=== PATIENT | male | born 1950 | race Caucasian/White ===

== ENCOUNTER 2024-02-22 14:46 | Inpatient (IN) | payer OTHER ==
[2024-02-22] MEDS: ALBUTEROL SO4 2.5/IPRATROPIUM 0.5 INH SOL 3 ML VIAL.NEB. NEB ONE (15:15)
[2024-02-22 15:54] LABS: BASO % 0.3 % (0-2.0); EOS % 1.2 % (0-4.5); HEMATOCRIT 46.8 % (35.4-49); HEMOGLOBIN 15.4 GM/dL (11.7-16.9); LYMPH % 9.8 % (8-40); MCH 28.1 pg (25.7-33.7); MEAN CELL VOLUME 85.1 fl (80-96); MEAN PLT VOLUME 7.6 fl (7.5-11.1); MONO % 11.2 % (3.8-10.2); NEUT % 77.5 % (42.8-82.8); PLATELET COUNT 299 10^3/uL (134-434); RBC 5.49 M/mm3 (4.00-5.60); RDW 15.3 % (11.9-15.9); WHITE BLOOD COUNT 14.9 K/mm3 (4.0-10.0)
[2024-02-22 15:56] LABS: VENOUS BASE EXCESS -2.1 mmol/L (-2-2); VENOUS O2 SATURATION 97.5 % (70-80); VENOUS PCO2 32.1 mmHg (38-52); VENOUS PH 7.433 (7.310-7.410)
[2024-02-22 16:07] LABS: INR 1.18 (0.83-1.09); PROTHROMBIN TIME (PATIENT) 13.5 SEC (9.7-13.0)
[2024-02-22 16:18] LABS: CHLORIDE 103 mmol/L (98-107); POTASSIUM 4.1 mmol/L (3.5-5.1); SODIUM 136 mmol/L (136-145)
[2024-02-22 16:21] LABS: CALCIUM 8.9 mg/dL (8.5-10.1); GLUCOSE,RANDOM 109 mg/dL (74-106)
[2024-02-22 16:22] LABS: ALBUMIN 3.2 g/dl (3.4-5.0); ANION GAP 8 mmol/L (4-13); BLOOD UREA NITROGEN 39.2 mg/dL (7-18); CO2 25 mmol/L (21-32)
[2024-02-22 16:23] LABS: MAGNESIUM 2.4 mg/dL (1.8-2.4)
[2024-02-22 16:24] LABS: CREATININE 1.7 mg/dL (0.55-1.3); SGOT/AST 37 U/L (15-37); SGPT/ALT 40 U/L (13-61)
[2024-02-22 16:25] LABS: BILIRUBIN,TOTAL 0.7 mg/dL (0.2-1); TOT PROT 6.6 g/dl (6.4-8.2)
[2024-02-22 16:26] LABS: ALK PHOS 71 U/L (45-117); PHOSPHOROUS 3.5 mg/dL (2.5-4.9)
[2024-02-22 16:31] LABS: N-TERMINAL BNP 150.4 pg/ml (5-125)
[2024-02-22 18:06] LABS: VENOUS BASE EXCESS -1.8 mmol/L (-2-2); VENOUS PCO2 38.2 mmHg (38-52); VENOUS PH 7.392 (7.310-7.410)
[2024-02-22 19:17] LABS: EPI CELLS 35 /uL (0-25.1); HYALINE CASTS 3 /uL (0-3.1); PH,URINE 5.5 (5.0-8.0); URINE APPEARANCE CLEAR; URINE BACTERIA 29 /uL (0-1359); URINE BILIRUBIN 1+ (NEGATIVE); URINE COLOR DK YELLOW; URINE GLUCOSE (UA) NEGATIVE (NEGATIVE); URINE KETONE TRACE (NEGATIVE); URINE LEUK ESTERASE TRACE (NEGATIVE); URINE NITRITE NEGATIVE (NEGATIVE); URINE PROTEIN 2+ (NEGATIVE); URINE RBC 1805 /uL (0-23.9); URINE WBC 42 /uL (0-25.8)
[2024-02-23 08:30] LABS: HEMATOCRIT 46.4 % (35.4-49); HEMOGLOBIN 15.6 GM/dL (11.7-16.9); MCH 28.6 pg (25.7-33.7); MCHC 33.5 g/dl (32.0-35.9); MEAN CELL VOLUME 85.3 fl (80-96); MEAN PLT VOLUME 7.9 fl (7.5-11.1); PLATELET COUNT 270 10^3/uL (134-434); RBC 5.45 M/mm3 (4.00-5.60); WHITE BLOOD COUNT 13.6 K/mm3 (4.0-10.0)
[2024-02-23 08:45] LABS: POTASSIUM 3.8 mmol/L (3.5-5.1)
[2024-02-23 08:55] LABS: CALCIUM 9.5 mg/dL (8.5-10.1)
[2024-02-23 08:56] LABS: ALBUMIN 3.3 g/dl (3.4-5.0); BLOOD UREA NITROGEN 46.9 mg/dL (7-18)
[2024-02-23 08:58] LABS: BILIRUBIN,TOTAL 0.8 mg/dL (0.2-1); CREATININE 1.5 mg/dL (0.55-1.3); TOT PROT 6.6 g/dl (6.4-8.2)
[2024-02-23 09:21] LABS: ERYTHROCYTE SEDIMENTATION RATE 15 mm/hr (0-20)
[2024-02-23] MEDS: ENOXAPARIN NA (PORCINE) 40 MG/0.4 ML DISP.SYRIN SQ SCH (09:42)
[2024-02-23] MEDS: TAMSULOSIN HCL 0.4 MG CAP PO SCH (09:42)
[2024-02-23] MEDS: buPROPion HCL 100 MG TABLET PO SCH (11:58)
[2024-02-23 13:37] LABS: COCAINE, UR NEGATIVE (NEGATIVE); PHENCYCLIDINE,URINE NEGATIVE (NEGATIVE); URINE AMPHETAMINES NEGATIVE (NEGATIVE); URINE BARBITURATES NEGATIVE (NEGATIVE); URINE BENZODIAZEPINES NEGATIVE (NEGATIVE)
[2024-02-23 13:43] LABS: METHADONE, UR NEGATIVE (NEGATIVE); OPIATES, URI NEGATIVE (NEGATIVE)
[2024-02-23] MEDS: SODIUM CHLORIDE 1,000 ML IV SCH (15:09)
[2024-02-23] MEDS: ATORVASTATIN CA 20 MG TABLET (FP) PO SCH (21:45)
[2024-02-23] MEDS: buPROPion HCL 75 MG TABLET PO SCH (21:45)
[2024-02-24] MEDS: ASPIRIN COATED 81 MG TABLET.EC PO SCH (16:36)
[2024-02-24] MEDS: HALOPERIDOL LACTATE 5 MG/ML IM ONE (16:37)
[2024-02-24 16:40] LABS: ARTERIAL BLD GAS O2 SATURATION 97.1 % (95-98); ARTERIAL BLOOD GAS BASE EXCESS -3.1 mmol/L (-2-2); ARTERIAL BLOOD GAS PO2 91.5 mmHg (80-100); ARTERIAL BLOOD GAS pH 7.407 (7.350-7.450)
[2024-02-24 16:41] LABS: ALLENS TEST POSITIVE
[2024-02-25 09:42] LABS: BASO % 0.7 % (0-2.0); EOS % 6.6 % (0-4.5); HEMATOCRIT 44.5 % (35.4-49); HEMOGLOBIN 14.6 GM/dL (11.7-16.9); LYMPH % 17.1 % (8-40); MCH 28.5 pg (25.7-33.7); MCHC 32.8 g/dl (32.0-35.9); MEAN CELL VOLUME 86.9 fl (80-96); MEAN PLT VOLUME 7.3 fl (7.5-11.1); MONO % 8.7 % (3.8-10.2); NEUT % 66.9 % (42.8-82.8); PLATELET COUNT 248 10^3/uL (134-434); RBC 5.12 M/mm3 (4.00-5.60); RDW 14.7 % (11.9-15.9); WHITE BLOOD COUNT 8.6 K/mm3 (4.0-10.0)
[2024-02-25 10:33] LABS: BLOOD UREA NITROGEN 30.4 mg/dL (7-18); CALCIUM 8.7 mg/dL (8.5-10.1)
[2024-02-26 09:54] LABS: BASO % 0.6 % (0-2.0); EOS % 7.1 % (0-4.5); HEMATOCRIT 44.1 % (35.4-49); HEMOGLOBIN 14.8 GM/dL (11.7-16.9); LYMPH % 19.5 % (8-40); MCH 28.9 pg (25.7-33.7); MCHC 33.6 g/dl (32.0-35.9); MEAN CELL VOLUME 86.1 fl (80-96); MEAN PLT VOLUME 7.4 fl (7.5-11.1); MONO % 8.6 % (3.8-10.2); NEUT % 64.2 % (42.8-82.8); PLATELET COUNT 251 10^3/uL (134-434); RBC 5.12 M/mm3 (4.00-5.60); RDW 14.7 % (11.9-15.9); WHITE BLOOD COUNT 8.6 K/mm3 (4.0-10.0)
[2024-02-26 10:02] LABS: POTASSIUM 4.1 mmol/L (3.5-5.1)
[2024-02-26 10:12] LABS: BLOOD UREA NITROGEN 26.3 mg/dL (7-18); CALCIUM 8.8 mg/dL (8.5-10.1); MAGNESIUM 2.2 mg/dL (1.8-2.4)
[2024-02-26 10:15] LABS: PHOSPHOROUS 2.3 mg/dL (2.5-4.9)
[2024-02-26 10:16] LABS: CREATININE 1.2 mg/dL (0.55-1.3)
[2024-02-26 10:17] LABS: BILIRUBIN,TOTAL 0.8 mg/dL (0.2-1); TOT PROT 6.1 g/dl (6.4-8.2)
[2024-02-26] MEDS: LACTATED RINGERS SOLUTION 1,000 ML/1,000 ML INFUS.BAG IV SCH (11:59)
[2024-02-26] MEDS: buPROPion HCL 75 MG TABLET PO SCH (14:32)
[2024-02-27] MEDS ORDERED: buPROPion HCL 75 MG TABLET PO SCH ×2 (10:00)
[2024-02-27] MEDS: LISINOPRIL 20 MG TABLET PO SCH (11:25)
[2024-02-27 12:44] LABS: HEMATOCRIT 47.6 % (35.4-49); HEMOGLOBIN 15.8 GM/dL (11.7-16.9); MCH 28.9 pg (25.7-33.7); MCHC 33.1 g/dl (32.0-35.9); MEAN CELL VOLUME 87.2 fl (80-96); MEAN PLT VOLUME 7.8 fl (7.5-11.1); PLATELET COUNT 238 10^3/uL (134-434); RBC 5.46 M/mm3 (4.00-5.60); RDW 15.1 % (11.9-15.9); WHITE BLOOD COUNT 10.2 K/mm3 (4.0-10.0)
[2024-02-27 13:59] LABS: POTASSIUM 4.6 mmol/L (3.5-5.1)
[2024-02-27 14:01] LABS: CALCIUM 9.2 mg/dL (8.5-10.1)
[2024-02-27 14:02] LABS: BLOOD UREA NITROGEN 23.9 mg/dL (7-18)
[2024-02-27 14:03] LABS: MAGNESIUM 2.5 mg/dL (1.8-2.4)
[2024-02-27 14:05] LABS: CREATININE 1.2 mg/dL (0.55-1.3); PHOSPHOROUS 2.3 mg/dL (2.5-4.9)
[2024-02-27] MEDS: ACETAMINOPHEN 1000 MG/100 ML BAG IVPB PRN (14:41)
[2024-02-27] MEDS ORDERED: VALPROATE SODIUM 500 MG/5 ML VIAL IVPB ONE (16:03)
[2024-02-27] MEDS: AMINO ACIDS 4.25%/D5W 1,000 ML IV SCH (18:30)
[2024-02-27] MEDS: DEXTROSE 5%-WATER - 1,000 ML IV SCH (23:05)
[2024-02-28] MEDS: VALPROATE SODIUM INJECTION 1,000 MG in SODIUM CHLORIDE 100 ML IVPB ONE (00:50)
[2024-02-28 09:47] LABS: POTASSIUM 3.9 mmol/L (3.5-5.1)
[2024-02-28 10:00] LABS: ALBUMIN 2.8 g/dl (3.4-5.0); BLOOD UREA NITROGEN 23.3 mg/dL (7-18); CALCIUM 8.5 mg/dL (8.5-10.1); MAGNESIUM 2.4 mg/dL (1.8-2.4)
[2024-02-28] MEDS ORDERED: VALPROATE SODIUM 500 MG/5 ML VIAL IVPB SCH (10:00)
[2024-02-28 10:04] LABS: BILIRUBIN,TOTAL 0.6 mg/dL (0.2-1); CREATININE 1.1 mg/dL (0.55-1.3); PHOSPHOROUS 2.8 mg/dL (2.5-4.9); TOT PROT 5.5 g/dl (6.4-8.2)
[2024-02-28] MEDS: VALPROATE SODIUM INJECTION 500 MG in SODIUM CHLORIDE 100 ML IVPB SCH (11:09)
[2024-02-29 08:53] LABS: POTASSIUM 3.8 mmol/L (3.5-5.1)
[2024-02-29 08:54] LABS: CALCIUM 8.7 mg/dL (8.5-10.1)
[2024-02-29 08:55] LABS: ALBUMIN 2.8 g/dl (3.4-5.0); BLOOD UREA NITROGEN 17.5 mg/dL (7-18); MAGNESIUM 2.3 mg/dL (1.8-2.4)
[2024-02-29 08:58] LABS: BILIRUBIN,TOTAL 0.6 mg/dL (0.2-1); CREATININE 0.9 mg/dL (0.55-1.3); PHOSPHOROUS 2.7 mg/dL (2.5-4.9)
[2024-02-29 09:02] LABS: TOT PROT 5.6 g/dl (6.4-8.2)
[2024-03-01 02:36] LABS: ARTERIAL BLD GAS O2 SATURATION 98.5 % (95-98); ARTERIAL BLOOD GAS BASE EXCESS -1.1 mmol/L (-2-2); ARTERIAL BLOOD GAS PO2 141.1 mmHg (80-100)
[2024-03-01 02:37] LABS: ALLENS TEST POSITIVE
[2024-03-01] MEDS: PIPERACILLIN/TAZOB 3.375 GM 3.375 GM in DEXTROSE 5%-WATER - 50 ML IVPB SCH ×2 (05:00→17:14)
[2024-03-01] MEDS: SODIUM CHLORIDE 1,000 ML IV SCH (05:04)
[2024-03-01] MEDS: PROPOFOL 1,000,000 MCG/100 ML VIAL IVPB SCH (06:00)
[2024-03-01 06:24] LABS: ARTERIAL BLD GAS O2 SATURATION 99.2 % (95-98); ARTERIAL BLOOD GAS BASE EXCESS -1.5 mmol/L (-2-2); ARTERIAL BLOOD GAS PO2 199.4 mmHg (80-100); ARTERIAL BLOOD GAS pH 7.276 (7.350-7.450)
[2024-03-01 06:25] LABS: VENT MODE V-A/C
[2024-03-01 06:26] LABS: VENT RATE 20
[2024-03-01] MEDS: FENTANYL NS IVPB 500 MCG/100 ML BAG IVPB SCH (07:08)
[2024-03-01] MEDS: methylPREDNISolone NA SUCC 40 MG/1 ML VIAL IVPUSH SCH (07:09)
[2024-03-01 07:35] LABS: BASO % 0.3 % (0-2.0); EOS % 1.1 % (0-4.5); HEMATOCRIT 46.6 % (35.4-49); HEMOGLOBIN 15.4 GM/dL (11.7-16.9); LYMPH % 6.4 % (8-40); MCH 28.8 pg (25.7-33.7); MEAN CELL VOLUME 87.3 fl (80-96); MEAN PLT VOLUME 8.3 fl (7.5-11.1); MONO % 7.3 % (3.8-10.2); NEUT % 84.9 % (42.8-82.8); PLATELET COUNT 194 10^3/uL (134-434); RBC 5.33 M/mm3 (4.00-5.60); RDW 14.8 % (11.9-15.9); WHITE BLOOD COUNT 15.6 K/mm3 (4.0-10.0)
[2024-03-01] MEDS ORDERED: NOREPINEPHRINE BITARTRATE 4 MG/4 ML ML IV ONE (07:36)
[2024-03-01 07:37] LABS: INR 1.04 (0.83-1.09)
[2024-03-01 07:40] LABS: ACTIVATED PTT 28.8 SECONDS (25.2-36.5)
[2024-03-01] MEDS ORDERED: TRIPLE LUMEN FLUSH 4 ML ML IVPUSH PRN (07:42)
[2024-03-01] MEDS: NOREPINEPHRINE 0.9 % NACL 8 MG/250 ML BAG IVPB SCH (07:45)
[2024-03-01 07:46] LABS: POTASSIUM 3.8 mmol/L (3.5-5.1)
[2024-03-01 07:48] LABS: ALBUMIN 2.9 g/dl (3.4-5.0); BLOOD UREA NITROGEN 17.4 mg/dL (7-18); CALCIUM 8.6 mg/dL (8.5-10.1); MAGNESIUM 2.3 mg/dL (1.8-2.4)
[2024-03-01 07:51] LABS: BILIRUBIN,DIRECT 0.4 mg/dL (0.0-0.2); PHOSPHOROUS 4.1 mg/dL (2.5-4.9)
[2024-03-01 07:53] LABS: BILIRUBIN,TOTAL 0.9 mg/dL (0.2-1); TOT PROT 6.3 g/dl (6.4-8.2)
[2024-03-01 07:58] LABS: N-TERMINAL BNP 371.5 pg/ml (5-125)
[2024-03-01] MEDS: VANCOMYCIN PREMIX 1.5 GM 1,500 MG/300 ML BAG IVPB SCH (08:46)
[2024-03-01] MEDS: PANTOPRAZOLE SODIUM 40 MG VIAL IVPUSH SCH (09:22)
[2024-03-01] MEDS: ENOXAPARIN NA (PORCINE) 40 MG/0.4 ML DISP.SYRIN SQ SCH (09:22)
[2024-03-01] MEDS: LISINOPRIL 20 MG TABLET NGT SCH (09:23)
[2024-03-01] MEDS: MUPIROCIN 2% TOPICAL OINTMENT FOR DECOLONIZATION NS SCH (09:29)
[2024-03-01] MEDS: VANCOMYCIN HCL 1,500 MG in DEXTROSE 5%-WATER - 250 ML IVPB SCH (13:43)
[2024-03-01] MEDS: VASopressin 40 UNITS/100 ML BAG IV SCH (15:15)
[2024-03-01] MEDS: INSULIN ASPART SLIDING SCALE (NOVOLOG) 1 VIAL SQ SCH (15:53)
[2024-03-01] MEDS: LACTATED RINGERS SOLUTION 1,000 ML/1,000 ML INFUS.BAG IV STA (18:43)
[2024-03-01] MEDS: VANCOMYCIN/WATER FOR INJ (PEG) 1,000 MG/200 ML BAG IVPB SCH (21:02)
[2024-03-01] MEDS: NOREPINEPHRINE BITARTRATE/D5W 8 MG/250 ML BAG IVPB SCH (21:02)
[2024-03-01] MEDS: CHLORHEXIDINE GLUCONATE 4% CLEANSER FOR DECOLONIZATION TP SCH (21:03)
[2024-03-01] MEDS: ATORVASTATIN CA 20 MG TABLET (FP) NGT SCH (21:33)
[2024-03-02] MEDS ORDERED: PIPERACILLIN/TAZOB 3.375 GM 3.375 GM in DEXTROSE 5%-WATER - 50 ML IVPB SCH (02:00)
[2024-03-02] MEDS ORDERED: ACETAMINOPHEN INJECTION 100 ML IVPB ONE (05:33)
[2024-03-02 06:13] LABS: ARTERIAL BLD GAS O2 SATURATION 98.7 % (95-98); ARTERIAL BLOOD GAS BASE EXCESS -1.4 mmol/L (-2-2); ARTERIAL BLOOD GAS PO2 136.1 mmHg (80-100); ARTERIAL BLOOD GAS pH 7.386 (7.350-7.450)
[2024-03-02 06:15] LABS: ALLENS TEST POSITIVE
[2024-03-02 06:16] LABS: VENT MODE A/C; VENT RATE 20
[2024-03-02] MEDS: ACETAMINOPHEN 650 MG/20.3 ML ORAL SOLUTION (CUPS) PO PRN (06:23)
[2024-03-02] MEDS ORDERED: FENTANYL IVPB 500 MCG/100 ML BAG IVPB SCH (08:00)
[2024-03-02] MEDS: FENTANYL NS IVPB 500 MCG/100 ML BAG IVPB SCH (08:15)
[2024-03-02] MEDS: NOREPINEPHRINE BITARTRATE 16,000 MCG in SODIUM CHLORIDE 484 ML IV SCH (08:47)
[2024-03-02 09:23] LABS: EPI CELLS 15 /uL (0-25.1); HYALINE CASTS 3 /uL (0-3.1); PH,URINE 5.5 (5.0-8.0); URINE APPEARANCE TURBID; URINE BACTERIA 7 /uL (0-1359); URINE BILIRUBIN 1+ (NEGATIVE); URINE COLOR ORANGE; URINE GLUCOSE (UA) 1+ (NEGATIVE); URINE KETONE 1+ (NEGATIVE); URINE LEUK ESTERASE 1+ (NEGATIVE); URINE NITRITE NEGATIVE (NEGATIVE); URINE PROTEIN 2+ (NEGATIVE); URINE RBC 2355 /uL (0-23.9); URINE WBC 172 /uL (0-25.8)
[2024-03-02 09:24] LABS: POTASSIUM 4.5 mmol/L (3.5-5.1)
[2024-03-02 09:29] LABS: CALCIUM 8.5 mg/dL (8.5-10.1)
[2024-03-02 09:30] LABS: ALBUMIN 2.5 g/dl (3.4-5.0); BLOOD UREA NITROGEN 25.9 mg/dL (7-18); MAGNESIUM 2.3 mg/dL (1.8-2.4)
[2024-03-02 09:33] LABS: BILIRUBIN,TOTAL 0.5 mg/dL (0.2-1); CREATININE 1.2 mg/dL (0.55-1.3); PHOSPHOROUS 2.3 mg/dL (2.5-4.9); TOT PROT 5.6 g/dl (6.4-8.2)
[2024-03-02] MEDS: MAGNESIUM 2GM/50ML STERILE WATER IVPB IVPB ONE (11:47)
[2024-03-02] MEDS: NAPH,MB-DB/K PH,MBDB POWDER PACKET NGT SCH (13:48)
[2024-03-02] MEDS: KETOROLAC TROMETHAMINE 15 MG/ML VIAL IVPUSH ONE (14:49)
[2024-03-02 16:04] VITALS: BMI 32.6
[2024-03-02] MEDS: LACTATED RINGERS SOLUTION 1000 ML INFUS.BAG IV ONE (17:04)
[2024-03-02] MEDS ORDERED: MIDAZOLAM HCL 2 MG/2 ML SINGLE DOSE VIAL ONE (21:53)
[2024-03-02] MEDS: MIDAZOLAM HCL 2 MG/2 ML SINGLE DOSE VIAL IVPUSH PRN (22:14)
[2024-03-03 06:20] LABS: ARTERIAL BLD GAS O2 SATURATION 96.4 % (95-98); ARTERIAL BLOOD GAS BASE EXCESS -3.4 mmol/L (-2-2); ARTERIAL BLOOD GAS PO2 81.9 mmHg (80-100); ARTERIAL BLOOD GAS pH 7.424 (7.350-7.450)
[2024-03-03 06:51] LABS: ALLENS TEST POSITIVE
[2024-03-03 06:53] LABS: VENT RATE 20
[2024-03-03 07:33] LABS: BASO % 0.1 % (0-2.0); HEMATOCRIT 39.2 % (35.4-49); HEMOGLOBIN 12.7 GM/dL (11.7-16.9); LYMPH % 6.9 % (8-40); MCH 28.3 pg (25.7-33.7); MCHC 32.5 g/dl (32.0-35.9); MEAN CELL VOLUME 87.2 fl (80-96); MEAN PLT VOLUME 8.8 fl (7.5-11.1); MONO % 4.9 % (3.8-10.2); NEUT % 88.1 % (42.8-82.8); PLATELET COUNT 143 10^3/uL (134-434); RDW 15.3 % (11.9-15.9); WHITE BLOOD COUNT 11.8 K/mm3 (4.0-10.0)
[2024-03-03 07:38] LABS: POTASSIUM 4.1 mmol/L (3.5-5.1)
[2024-03-03 07:40] LABS: ALBUMIN 2.4 g/dl (3.4-5.0); CALCIUM 8.1 mg/dL (8.5-10.1); MAGNESIUM 2.6 mg/dL (1.8-2.4)
[2024-03-03 07:41] LABS: BLOOD UREA NITROGEN 31.6 mg/dL (7-18)
[2024-03-03 07:43] LABS: CREATININE 0.9 mg/dL (0.55-1.3)
[2024-03-03 07:45] LABS: BILIRUBIN,TOTAL 0.4 mg/dL (0.2-1); TOT PROT 5.2 g/dl (6.4-8.2)
[2024-03-03] MEDS: ALBUTEROL SO4 2.5/IPRATROPIUM 0.5 INH SOL 3 ML VIAL.NEB. NEB SCH (11:43)
[2024-03-03] MEDS: INSULIN ASPART SLIDING SCALE (NOVOLOG) 1 VIAL SQ SCH (13:13)
[2024-03-03] MEDS: methylPREDNISolone NA SUCC 40 MG/1 ML VIAL IVPUSH SCH (15:28)
[2024-03-03] MEDS ORDERED: FENTANYL NS IVPB 500 MCG/100 ML BAG IVPB ONE (17:30)
[2024-03-03 22:46] LABS: ARTERIAL BLD GAS O2 SATURATION 97.9 % (95-98); ARTERIAL BLOOD GAS BASE EXCESS 1.5 mmol/L (-2-2); ARTERIAL BLOOD GAS PO2 100.3 mmHg (80-100); ARTERIAL BLOOD GAS pH 7.459 (7.350-7.450)
[2024-03-03 22:47] LABS: ALLENS TEST POSITIVE; VENT MODE A/C; VENT RATE 8
[2024-03-04 07:53] LABS: HEMATOCRIT 38.9 % (35.4-49); HEMOGLOBIN 12.9 GM/dL (11.7-16.9); MCH 28.7 pg (25.7-33.7); MCHC 33.1 g/dl (32.0-35.9); MEAN CELL VOLUME 86.7 fl (80-96); MEAN PLT VOLUME 8.9 fl (7.5-11.1); PLATELET COUNT 163 10^3/uL (134-434); RBC 4.49 M/mm3 (4.00-5.60); RDW 15.6 % (11.9-15.9); WHITE BLOOD COUNT 14.9 K/mm3 (4.0-10.0)
[2024-03-04 08:07] LABS: POTASSIUM 4.3 mmol/L (3.5-5.1)
[2024-03-04 08:14] LABS: BLOOD UREA NITROGEN 33.1 mg/dL (7-18)
[2024-03-04 08:17] LABS: CALCIUM 8.5 mg/dL (8.5-10.1); MAGNESIUM 2.9 mg/dL (1.8-2.4)
[2024-03-04 08:18] LABS: CREATININE 0.9 mg/dL (0.55-1.3); PHOSPHOROUS 2.5 mg/dL (2.5-4.9)
[2024-03-04] MEDS: LACTATED RINGERS SOLUTION 1000 ML INFUS.BAG IV ONE (10:01)
[2024-03-04] MEDS: ALBUTEROL SO4 2.5/IPRATROPIUM 0.5 INH SOL 3 ML VIAL.NEB. NEB ONE (16:08)
[2024-03-04] MEDS: methylPREDNISolone NA SUCC 40 MG/1 ML VIAL IVPUSH SCH (17:00)
[2024-03-04 17:01] LABS: ARTERIAL BLD GAS O2 SATURATION 96.1 % (95-98); ARTERIAL BLOOD GAS PO2 76.9 mmHg (80-100); ARTERIAL BLOOD GAS pH 7.467 (7.350-7.450)
[2024-03-04 17:08] LABS: ALLENS TEST POSITIVE
[2024-03-04 22:09] LABS: ARTERIAL BLD GAS O2 SATURATION 97.2 % (95-98); ARTERIAL BLOOD GAS BASE EXCESS 2.7 mmol/L (-2-2); ARTERIAL BLOOD GAS PO2 89.2 mmHg (80-100); ARTERIAL BLOOD GAS pH 7.463 (7.350-7.450)
[2024-03-04 22:17] LABS: ALLENS TEST POSITIVE
[2024-03-05] MEDS ORDERED: RAPID SEQUENCE INTUBATION KIT NR ONE ×2 (01:14→08:02)
[2024-03-05 07:38] LABS: HEMATOCRIT 41.3 % (35.4-49); HEMOGLOBIN 13.5 GM/dL (11.7-16.9); MCH 28.5 pg (25.7-33.7); MCHC 32.7 g/dl (32.0-35.9); MEAN CELL VOLUME 87.1 fl (80-96); MEAN PLT VOLUME 8.9 fl (7.5-11.1); PLATELET COUNT 182 10^3/uL (134-434); RBC 4.74 M/mm3 (4.00-5.60); RDW 15.9 % (11.9-15.9); WHITE BLOOD COUNT 13.3 K/mm3 (4.0-10.0)
[2024-03-05 07:41] LABS: POTASSIUM 4.5 mmol/L (3.5-5.1)
[2024-03-05 07:45] LABS: ALBUMIN 2.4 g/dl (3.4-5.0); CALCIUM 8.6 mg/dL (8.5-10.1); MAGNESIUM 2.8 mg/dL (1.8-2.4)
[2024-03-05 07:47] LABS: CREATININE 0.8 mg/dL (0.55-1.3)
[2024-03-05 07:50] LABS: BILIRUBIN,TOTAL 0.6 mg/dL (0.2-1); TOT PROT 5.6 g/dl (6.4-8.2)
[2024-03-05 08:13] LABS: ARTERIAL BLD GAS O2 SATURATION 97.4 % (95-98); ARTERIAL BLOOD GAS BASE EXCESS 1.5 mmol/L (-2-2); ARTERIAL BLOOD GAS PO2 90.3 mmHg (80-100); ARTERIAL BLOOD GAS pH 7.465 (7.350-7.450)
[2024-03-05] MEDS: SCOPOLAMINE HYDROBROMIDE 1 PATCH PATCH.TD72 TD SCH (09:56)
[2024-03-05] MEDS: FUROSEMIDE 40 MG/4 ML INJECTABLE VIAL IVPUSH ONE (09:56)
[2024-03-05 10:33] LABS: PLATELET ESTIMATE ADEQUATE
[2024-03-05] MEDS: GLYCOPYRROLATE 0.2 MG/1 ML VIAL IM ONE (10:37)
[2024-03-05] MEDS: GLYCOPYRROLATE 1 MG/5 ML VIAL IM ONE (11:26)
[2024-03-05] MEDS: DEXTROSE 5%-LACTATED RINGERS 1,000 ML IV SCH (12:15)
[2024-03-06 07:27] LABS: POTASSIUM 5.3 mmol/L (3.5-5.1)
[2024-03-06 07:30] LABS: HEMATOCRIT 42.1 % (35.4-49); HEMOGLOBIN 14.3 GM/dL (11.7-16.9); MCH 29.1 pg (25.7-33.7); MEAN CELL VOLUME 85.7 fl (80-96); MEAN PLT VOLUME 9.1 fl (7.5-11.1); RBC 4.91 M/mm3 (4.00-5.60); RDW 15.8 % (11.9-15.9); WHITE BLOOD COUNT 11.4 K/mm3 (4.0-10.0)
[2024-03-06 07:33] LABS: BLOOD UREA NITROGEN 32.9 mg/dL (7-18); CALCIUM 7.6 mg/dL (8.5-10.1); MAGNESIUM 2.7 mg/dL (1.8-2.4)
[2024-03-06 07:36] LABS: CREATININE 0.8 mg/dL (0.55-1.3); PHOSPHOROUS 3.9 mg/dL (2.5-4.9)
[2024-03-06] MEDS: POLYETHYLENE GLYCOL (HEALTHYLAX) 3350 17 GM PACKET PO SCH (09:07)
[2024-03-06 09:08] LABS: PLATELET COUNT 186 10^3/uL (134-434)
[2024-03-06] MEDS: FUROSEMIDE 40 MG/4 ML INJECTABLE VIAL IVPUSH ONE (10:15)
[2024-03-06] MEDS: AMINO ACIDS 4.25%/D5W 1,000 ML IV SCH ×2 (10:15→21:57)
[2024-03-06] MEDS ORDERED: TRIPLE LUMEN FLUSH 4 ML ML IVPUSH PRN (15:32)
[2024-03-06] MEDS ORDERED: VALPROATE SODIUM 500 MG/5 ML VIAL IVPB ONE (15:32)
[2024-03-06] MEDS ORDERED: VASopressin 40 UNITS/100 ML BAG IV SCH (15:32)
[2024-03-06] MEDS: INSULIN ASPART SLIDING SCALE (NOVOLOG) 1 VIAL SQ SCH (17:01)
[2024-03-06] MEDS: PIPERACILLIN/TAZOB 3.375 GM 3.375 GM in DEXTROSE 5%-WATER - 50 ML IVPB SCH (17:02)
[2024-03-06] MEDS: ALBUTEROL SO4 2.5/IPRATROPIUM 0.5 INH SOL 3 ML VIAL.NEB. NEB SCH (17:04)
[2024-03-06] MEDS: VANCOMYCIN/WATER FOR INJ (PEG) 1,000 MG/200 ML BAG IVPB SCH (21:57)
[2024-03-06] MEDS: CHLORHEXIDINE GLUCONATE 4% CLEANSER FOR DECOLONIZATION TP SCH (21:57)
[2024-03-06] MEDS: ATORVASTATIN CA 20 MG TABLET (FP) NGT SCH (21:57)
[2024-03-06] MEDS: VALPROATE SODIUM INJECTION 500 MG in SODIUM CHLORIDE 100 ML IVPB SCH (21:58)
[2024-03-06] MEDS ORDERED: methylPREDNISolone NA SUCC 40 MG/1 ML VIAL IVPUSH SCH (23:45)
[2024-03-07] MEDS: FUROSEMIDE 40 MG/4 ML INJECTABLE VIAL IVPUSH ONE (06:39)
[2024-03-07 06:55] LABS: ARTERIAL BLD GAS O2 SATURATION 95.6 % (95-98); ARTERIAL BLOOD GAS PO2 71.4 mmHg (80-100); ARTERIAL BLOOD GAS pH 7.488 (7.350-7.450)
[2024-03-07 06:56] LABS: ALLENS TEST POSITIVE
[2024-03-07 08:18] LABS: HEMATOCRIT 46.3 % (35.4-49); HEMOGLOBIN 15.5 GM/dL (11.7-16.9); MCH 28.8 pg (25.7-33.7); MCHC 33.5 g/dl (32.0-35.9); MEAN CELL VOLUME 85.9 fl (80-96); MEAN PLT VOLUME 8.8 fl (7.5-11.1); PLATELET COUNT 241 10^3/uL (134-434); RBC 5.38 M/mm3 (4.00-5.60); RDW 15.9 % (11.9-15.9); WHITE BLOOD COUNT 16.9 K/mm3 (4.0-10.0)
[2024-03-07 08:37] LABS: POTASSIUM 3.9 mmol/L (3.5-5.1)
[2024-03-07 08:42] LABS: CALCIUM 8.7 mg/dL (8.5-10.1)
[2024-03-07 08:43] LABS: BLOOD UREA NITROGEN 36.3 mg/dL (7-18); MAGNESIUM 2.4 mg/dL (1.8-2.4)
[2024-03-07 08:46] LABS: CREATININE 0.9 mg/dL (0.55-1.3); PHOSPHOROUS 2.9 mg/dL (2.5-4.9)
[2024-03-07] MEDS: PANTOPRAZOLE SODIUM 40 MG VIAL IVPUSH SCH (09:11)
[2024-03-07] MEDS: methylPREDNISolone NA SUCC 40 MG/1 ML VIAL IVPUSH SCH (09:11)
[2024-03-07] MEDS: POLYETHYLENE GLYCOL (HEALTHYLAX) 3350 17 GM PACKET PO SCH (09:12)
[2024-03-08] MEDS: SCOPOLAMINE HYDROBROMIDE 1 PATCH PATCH.TD72 TD SCH (10:06)
[2024-03-08 12:12] LABS: HEMATOCRIT 40.5 % (35.4-49); HEMOGLOBIN 13.4 GM/dL (11.7-16.9); MCH 28.5 pg (25.7-33.7); MEAN CELL VOLUME 86.2 fl (80-96); MEAN PLT VOLUME 8.6 fl (7.5-11.1); PLATELET COUNT 210 10^3/uL (134-434); RDW 15.6 % (11.9-15.9); WHITE BLOOD COUNT 15.2 K/mm3 (4.0-10.0)
[2024-03-08 12:25] LABS: POTASSIUM 3.7 mmol/L (3.5-5.1)
[2024-03-08 12:33] LABS: ALBUMIN 2.2 g/dl (3.4-5.0); BLOOD UREA NITROGEN 31.3 mg/dL (7-18)
[2024-03-08 12:34] LABS: CALCIUM 8.3 mg/dL (8.5-10.1); MAGNESIUM 2.4 mg/dL (1.8-2.4)
[2024-03-08 12:36] LABS: PHOSPHOROUS 2.2 mg/dL (2.5-4.9)
[2024-03-08 12:37] LABS: CREATININE 0.6 mg/dL (0.55-1.3)
[2024-03-08 12:38] LABS: BILIRUBIN,TOTAL 0.8 mg/dL (0.2-1)
[2024-03-08 12:41] LABS: TOT PROT 5.3 g/dl (6.4-8.2)
[2024-03-09 09:02] LABS: HEMATOCRIT 41.7 % (35.4-49); HEMOGLOBIN 13.8 GM/dL (11.7-16.9); MCH 28.8 pg (25.7-33.7); MCHC 33.1 g/dl (32.0-35.9); MEAN CELL VOLUME 87.1 fl (80-96); MEAN PLT VOLUME 8.7 fl (7.5-11.1); PLATELET COUNT 220 10^3/uL (134-434); RBC 4.79 M/mm3 (4.00-5.60); RDW 15.6 % (11.9-15.9); WHITE BLOOD COUNT 12.3 K/mm3 (4.0-10.0)
[2024-03-09 09:16] LABS: POTASSIUM 4.3 mmol/L (3.5-5.1)
[2024-03-09 09:18] LABS: ALBUMIN 2.1 g/dl (3.4-5.0); BLOOD UREA NITROGEN 26.4 mg/dL (7-18); CALCIUM 8.4 mg/dL (8.5-10.1); MAGNESIUM 2.3 mg/dL (1.8-2.4)
[2024-03-09 09:21] LABS: CREATININE 0.6 mg/dL (0.55-1.3); PHOSPHOROUS 2.3 mg/dL (2.5-4.9)
[2024-03-09 09:23] LABS: BILIRUBIN,TOTAL 0.7 mg/dL (0.2-1); TOT PROT 5.5 g/dl (6.4-8.2)
[2024-03-09] MEDS: NAPH,MB-DB/K PH,MBDB POWDER PACKET PO SCH (17:48)
[2024-03-09] MEDS: ACETAMINOPHEN 650 MG/20.3 ML ORAL SOLUTION (CUPS) PO PRN (22:13)
[2024-03-10 08:08] LABS: HEMATOCRIT 41.5 % (35.4-49); HEMOGLOBIN 13.8 GM/dL (11.7-16.9); MCH 28.7 pg (25.7-33.7); MCHC 33.3 g/dl (32.0-35.9); MEAN CELL VOLUME 86.1 fl (80-96); MEAN PLT VOLUME 8.4 fl (7.5-11.1); PLATELET COUNT 246 10^3/uL (134-434); RBC 4.82 M/mm3 (4.00-5.60); RDW 15.8 % (11.9-15.9); WHITE BLOOD COUNT 11.9 K/mm3 (4.0-10.0)
[2024-03-10 08:20] LABS: POTASSIUM 3.9 mmol/L (3.5-5.1)
[2024-03-10 08:28] LABS: CALCIUM 8.2 mg/dL (8.5-10.1)
[2024-03-10 08:29] LABS: ALBUMIN 2.1 g/dl (3.4-5.0); BLOOD UREA NITROGEN 25.5 mg/dL (7-18); MAGNESIUM 2.2 mg/dL (1.8-2.4)
[2024-03-10 08:31] LABS: PHOSPHOROUS 2.2 mg/dL (2.5-4.9)
[2024-03-10 08:32] LABS: BILIRUBIN,TOTAL 0.6 mg/dL (0.2-1); CREATININE 0.6 mg/dL (0.55-1.3); TOT PROT 5.5 g/dl (6.4-8.2)
[2024-03-10 10:29] LABS: PLATELET ESTIMATE ADEQUATE
[2024-03-10] MEDS: ENOXAPARIN NA (PORCINE) 40 MG/0.4 ML DISP.SYRIN SQ SCH (14:28)
[2024-03-10] MEDS: POTASSIUM PHOSPHATE 15 MM in SODIUM CHLORIDE 250 ML IVPB ONE (18:00)
[2024-03-10] MEDS: buPROPion HCL 100 MG TABLET PO SCH ×2 (19:17→21:19)
[2024-03-11 07:35] LABS: BASO % 0.2 % (0-2.0); EOS % 1.8 % (0-4.5); HEMATOCRIT 37.7 % (35.4-49); HEMOGLOBIN 12.7 GM/dL (11.7-16.9); LYMPH % 12.8 % (8-40); MCH 28.7 pg (25.7-33.7); MCHC 33.7 g/dl (32.0-35.9); MEAN CELL VOLUME 85.2 fl (80-96); MEAN PLT VOLUME 8.2 fl (7.5-11.1); MONO % 11.7 % (3.8-10.2); NEUT % 73.5 % (42.8-82.8); PLATELET COUNT 250 10^3/uL (134-434); RBC 4.43 M/mm3 (4.00-5.60); RDW 15.3 % (11.9-15.9); WHITE BLOOD COUNT 9.5 K/mm3 (4.0-10.0)
[2024-03-11 07:51] LABS: POTASSIUM 3.8 mmol/L (3.5-5.1)
[2024-03-11 07:54] LABS: CALCIUM 8.1 mg/dL (8.5-10.1); MAGNESIUM 2.3 mg/dL (1.8-2.4)
[2024-03-11 07:55] LABS: BLOOD UREA NITROGEN 23.6 mg/dL (7-18)
[2024-03-11 07:57] LABS: CREATININE 0.6 mg/dL (0.55-1.3); PHOSPHOROUS 2.4 mg/dL (2.5-4.9)
[2024-03-11 07:59] LABS: BILIRUBIN,TOTAL 0.5 mg/dL (0.2-1); TOT PROT 5.1 g/dl (6.4-8.2)
[2024-03-11 16:41] LABS: ARTERIAL BLD GAS O2 SATURATION 97.1 % (95-98); ARTERIAL BLOOD GAS BASE EXCESS 1.4 mmol/L (-2-2); ARTERIAL BLOOD GAS PO2 88.8 mmHg (80-100); ARTERIAL BLOOD GAS pH 7.442 (7.350-7.450)
[2024-03-11 16:44] LABS: ALLENS TEST POSITIVE
[2024-03-12 07:23] LABS: POTASSIUM 3.6 mmol/L (3.5-5.1)
[2024-03-12 07:25] LABS: HEMATOCRIT 37.9 % (35.4-49); HEMOGLOBIN 12.8 GM/dL (11.7-16.9); MCH 28.9 pg (25.7-33.7); MCHC 33.7 g/dl (32.0-35.9); MEAN CELL VOLUME 85.6 fl (80-96); MEAN PLT VOLUME 8.7 fl (7.5-11.1); PLATELET COUNT 290 10^3/uL (134-434); RBC 4.42 M/mm3 (4.00-5.60); RDW 15.3 % (11.9-15.9)
[2024-03-12 07:30] LABS: BLOOD UREA NITROGEN 22.4 mg/dL (7-18); CALCIUM 8.4 mg/dL (8.5-10.1); MAGNESIUM 2.2 mg/dL (1.8-2.4); PHOSPHOROUS 2.2 mg/dL (2.5-4.9)
[2024-03-12 07:31] LABS: CREATININE 0.6 mg/dL (0.55-1.3)
[2024-03-12 07:32] LABS: BILIRUBIN,TOTAL 0.4 mg/dL (0.2-1); TOT PROT 5.2 g/dl (6.4-8.2)
[2024-03-12 09:08] LABS: PLATELET ESTIMATE ADEQUATE
[2024-03-12] MEDS ORDERED: FENTANYL CITRATE/PF 50 MCG/ML VIAL ONE (12:35)
[2024-03-12] MEDS: FENTANYL CITRATE/PF 50 MCG/ML VIAL IVPUSH ONE (12:42)
[2024-03-12] MEDS: POTASSIUM PHOSPHATE 30 MM in SODIUM CHLORIDE 500 ML IVPB ONE (14:11)
[2024-03-12] MEDS: buPROPion HCL 100 MG TABLET PO SCH (14:12)
[2024-03-12] MEDS: ACETAMINOPHEN 1000 MG/100 ML BAG IVPB PRN (21:05)
[2024-03-12] MEDS: VALPROATE SODIUM INJECTION 250 MG in SODIUM CHLORIDE 100 ML IVPB ONE (23:00)
[2024-03-13 06:19] LABS: BASO % 0.2 % (0-2.0); EOS % 1.3 % (0-4.5); HEMATOCRIT 38.5 % (35.4-49); HEMOGLOBIN 13.3 GM/dL (11.7-16.9); LYMPH % 10.9 % (8-40); MCH 29.5 pg (25.7-33.7); MCHC 34.5 g/dl (32.0-35.9); MEAN CELL VOLUME 85.7 fl (80-96); MEAN PLT VOLUME 7.6 fl (7.5-11.1); MONO % 7.6 % (3.8-10.2); PLATELET COUNT 295 10^3/uL (134-434); RBC 4.49 M/mm3 (4.00-5.60); WHITE BLOOD COUNT 11.1 K/mm3 (4.0-10.0)
[2024-03-13 06:39] LABS: POTASSIUM 3.9 mmol/L (3.5-5.1)
[2024-03-13 06:43] LABS: CALCIUM 8.1 mg/dL (8.5-10.1)
[2024-03-13 06:44] LABS: BLOOD UREA NITROGEN 23.5 mg/dL (7-18)
[2024-03-13 06:47] LABS: CREATININE 0.5 mg/dL (0.55-1.3); PHOSPHOROUS 2.4 mg/dL (2.5-4.9)
[2024-03-13 06:48] LABS: BILIRUBIN,TOTAL 0.8 mg/dL (0.2-1)
[2024-03-13 06:49] LABS: TOT PROT 5.3 g/dl (6.4-8.2)
[2024-03-13] MEDS: VALPROATE SODIUM INJECTION 750 MG in SODIUM CHLORIDE 100 ML IVPB SCH (11:38)
[2024-03-13] MEDS: POTASSIUM PHOSPHATE 30 MM in SODIUM CHLORIDE 500 ML IVPB ONE (17:47)
[2024-03-14 10:49] LABS: HEMATOCRIT 41.5 % (35.4-49); MCH 28.7 pg (25.7-33.7); MCHC 33.7 g/dl (32.0-35.9); MEAN CELL VOLUME 85.1 fl (80-96); MEAN PLT VOLUME 7.8 fl (7.5-11.1); PLATELET COUNT 257 10^3/uL (134-434); RBC 4.88 M/mm3 (4.00-5.60); RDW 16.4 % (11.9-15.9); WHITE BLOOD COUNT 15.6 K/mm3 (4.0-10.0)
[2024-03-14 11:03] LABS: POTASSIUM 4.6 mmol/L (3.5-5.1)
[2024-03-14 11:05] LABS: ALBUMIN 2.1 g/dl (3.4-5.0); CALCIUM 8.3 mg/dL (8.5-10.1)
[2024-03-14 11:06] LABS: BLOOD UREA NITROGEN 24.3 mg/dL (7-18); MAGNESIUM 2.1 mg/dL (1.8-2.4)
[2024-03-14 11:08] LABS: PHOSPHOROUS 2.8 mg/dL (2.5-4.9)
[2024-03-14 11:09] LABS: CREATININE 0.6 mg/dL (0.55-1.3)
[2024-03-14 11:10] LABS: BILIRUBIN,TOTAL 0.4 mg/dL (0.2-1); TOT PROT 5.7 g/dl (6.4-8.2)
[2024-03-14] MEDS: FUROSEMIDE 40 MG/4 ML INJECTABLE VIAL IVPUSH ONE (16:38)
[2024-03-14] MEDS: ESCITALOPRAM OXALATE 5 MG/5 ML PO SCH (19:51)
[2024-03-14] MEDS: Lacosamide 200 MG/20 ML VIAL IVPB SCH (22:25)
[2024-03-15 07:45] LABS: POTASSIUM 4.7 mmol/L (3.5-5.1)
[2024-03-15 07:49] LABS: ALBUMIN 2.3 g/dl (3.4-5.0); MAGNESIUM 2.3 mg/dL (1.8-2.4)
[2024-03-15 07:50] LABS: BLOOD UREA NITROGEN 25.5 mg/dL (7-18); CALCIUM 8.4 mg/dL (8.5-10.1)
[2024-03-15 07:52] LABS: CREATININE 0.7 mg/dL (0.55-1.3); PHOSPHOROUS 3.6 mg/dL (2.5-4.9)
[2024-03-15 07:54] LABS: BASO % 0.3 % (0-2.0); BILIRUBIN,TOTAL 0.7 mg/dL (0.2-1); EOS % 1.3 % (0-4.5); HEMATOCRIT 40.7 % (35.4-49); HEMOGLOBIN 13.8 GM/dL (11.7-16.9); LYMPH % 7.8 % (8-40); MCH 28.7 pg (25.7-33.7); MEAN CELL VOLUME 84.5 fl (80-96); MEAN PLT VOLUME 7.8 fl (7.5-11.1); MONO % 6.9 % (3.8-10.2); NEUT % 83.7 % (42.8-82.8); PLATELET COUNT 298 10^3/uL (134-434); RBC 4.81 M/mm3 (4.00-5.60); RDW 16.3 % (11.9-15.9); TOT PROT 5.8 g/dl (6.4-8.2); WHITE BLOOD COUNT 11.8 K/mm3 (4.0-10.0)
[2024-03-16 07:25] LABS: BASO % 0.6 % (0-2.0); EOS % 1.8 % (0-4.5); HEMATOCRIT 40.6 % (35.4-49); HEMOGLOBIN 13.6 GM/dL (11.7-16.9); LYMPH % 9.9 % (8-40); MCH 28.7 pg (25.7-33.7); MCHC 33.5 g/dl (32.0-35.9); MEAN CELL VOLUME 85.8 fl (80-96); MEAN PLT VOLUME 7.7 fl (7.5-11.1); MONO % 6.5 % (3.8-10.2); NEUT % 81.2 % (42.8-82.8); PLATELET COUNT 273 10^3/uL (134-434); RBC 4.73 M/mm3 (4.00-5.60); RDW 16.7 % (11.9-15.9); WHITE BLOOD COUNT 12.4 K/mm3 (4.0-10.0)
[2024-03-16 07:43] LABS: POTASSIUM 4.4 mmol/L (3.5-5.1)
[2024-03-16 07:47] LABS: CALCIUM 8.4 mg/dL (8.5-10.1)
[2024-03-16 07:49] LABS: ALBUMIN 2.3 g/dl (3.4-5.0); BLOOD UREA NITROGEN 24.5 mg/dL (7-18); MAGNESIUM 2.3 mg/dL (1.8-2.4)
[2024-03-16 07:51] LABS: CREATININE 0.7 mg/dL (0.55-1.3)
[2024-03-16 07:53] LABS: BILIRUBIN,TOTAL 0.6 mg/dL (0.2-1); TOT PROT 5.6 g/dl (6.4-8.2)
[2024-03-17 07:31] LABS: BASO % 0.8 % (0-2.0); HEMATOCRIT 38.7 % (35.4-49); HEMOGLOBIN 13.2 GM/dL (11.7-16.9); LYMPH % 11.4 % (8-40); MCH 29.2 pg (25.7-33.7); MCHC 34.2 g/dl (32.0-35.9); MEAN CELL VOLUME 85.6 fl (80-96); MEAN PLT VOLUME 8.4 fl (7.5-11.1); MONO % 5.6 % (3.8-10.2); NEUT % 79.2 % (42.8-82.8); PLATELET COUNT 205 10^3/uL (134-434); RBC 4.52 M/mm3 (4.00-5.60); RDW 16.5 % (11.9-15.9); WHITE BLOOD COUNT 11.4 K/mm3 (4.0-10.0)
[2024-03-17 07:48] LABS: POTASSIUM 4.3 mmol/L (3.5-5.1)
[2024-03-17 07:59] LABS: ALBUMIN 2.2 g/dl (3.4-5.0); BLOOD UREA NITROGEN 23.6 mg/dL (7-18); CALCIUM 8.3 mg/dL (8.5-10.1)
[2024-03-17 08:00] LABS: MAGNESIUM 2.3 mg/dL (1.8-2.4)
[2024-03-17 08:02] LABS: CREATININE 0.6 mg/dL (0.55-1.3)
[2024-03-17 08:03] LABS: PHOSPHOROUS 3.1 mg/dL (2.5-4.9)
[2024-03-17 08:04] LABS: BILIRUBIN,TOTAL 0.5 mg/dL (0.2-1); TOT PROT 5.7 g/dl (6.4-8.2)
[2024-03-17] MEDS: ACETAMINOPHEN 650 MG/20.3 ML ORAL SOLUTION (CUPS) PO ONE (13:59)
[2024-03-17] MEDS: LISINOPRIL 20 MG TABLET PO SCH (16:36)
[2024-03-17] MEDS: SERTRALINE HCL 50 MG TABLET (FP) PO SCH (21:19)
[2024-03-18 06:46] LABS: BASO % 0.4 % (0-2.0); EOS % 3.5 % (0-4.5); HEMATOCRIT 39.2 % (35.4-49); HEMOGLOBIN 13.1 GM/dL (11.7-16.9); LYMPH % 12.3 % (8-40); MCH 28.9 pg (25.7-33.7); MCHC 33.3 g/dl (32.0-35.9); MEAN CELL VOLUME 86.5 fl (80-96); MEAN PLT VOLUME 7.8 fl (7.5-11.1); MONO % 6.2 % (3.8-10.2); NEUT % 77.6 % (42.8-82.8); PLATELET COUNT 200 10^3/uL (134-434); RBC 4.53 M/mm3 (4.00-5.60); RDW 16.7 % (11.9-15.9); WHITE BLOOD COUNT 10.8 K/mm3 (4.0-10.0)
[2024-03-18 07:01] LABS: ALBUMIN 2.4 g/dl (3.4-5.0); CALCIUM 8.5 mg/dL (8.5-10.1); MAGNESIUM 2.4 mg/dL (1.8-2.4)
[2024-03-18 07:02] LABS: BLOOD UREA NITROGEN 20.7 mg/dL (7-18)
[2024-03-18 07:04] LABS: CREATININE 0.6 mg/dL (0.55-1.3)
[2024-03-18 07:06] LABS: BILIRUBIN,TOTAL 0.6 mg/dL (0.2-1); TOT PROT 5.9 g/dl (6.4-8.2)
[2024-03-18] MEDS: levETIRAcetam 500 MG/5 ML INJECTION VIAL IVPB ONE (20:41)
[2024-03-18] MEDS: CHLORHEXIDINE GLUCONATE 4% CLEANSER FOR DECOLONIZATION TP SCH (21:16)
[2024-03-18] MEDS: MUPIROCIN 2% TOPICAL OINTMENT FOR DECOLONIZATION NS SCH (21:16)
[2024-03-18] MEDS: Lacosamide 200 MG/20 ML VIAL IVPB SCH (21:17)
[2024-03-18] MEDS ORDERED: PIPERACILLIN/TAZOB 4.5 GM 4.5 GM in DEXTROSE 5%-WATER 100 ML IVPB SCH (23:00)
[2024-03-18] MEDS: VANCOMYCIN/WATER FOR INJ (PEG) 1,000 MG/200 ML BAG IVPB SCH (23:10)
[2024-03-18] MEDS: PIPERACILLIN/TAZOB 4.5 GM 4.5 GM in DEXTROSE 5%-WATER 100 ML IVPB SCH (23:10)
[2024-03-19] MEDS: ACETAMINOPHEN 1000 MG/100 ML BAG IVPB PRN (02:53)
[2024-03-19 06:33] LABS: BASO % 0.7 % (0-2.0); EOS % 4.5 % (0-4.5); HEMOGLOBIN 12.4 GM/dL (11.7-16.9); LYMPH % 13.9 % (8-40); MCH 28.7 pg (25.7-33.7); MCHC 33.6 g/dl (32.0-35.9); MEAN CELL VOLUME 85.6 fl (80-96); MONO % 6.2 % (3.8-10.2); NEUT % 74.7 % (42.8-82.8); PLATELET COUNT 180 10^3/uL (134-434); RBC 4.32 M/mm3 (4.00-5.60); RDW 16.5 % (11.9-15.9); WHITE BLOOD COUNT 10.4 K/mm3 (4.0-10.0)
[2024-03-19 06:52] LABS: POTASSIUM 4.2 mmol/L (3.5-5.1)
[2024-03-19 06:55] LABS: ALBUMIN 2.1 g/dl (3.4-5.0); BLOOD UREA NITROGEN 24.5 mg/dL (7-18); CALCIUM 8.4 mg/dL (8.5-10.1); MAGNESIUM 2.3 mg/dL (1.8-2.4)
[2024-03-19 06:59] LABS: CREATININE 0.7 mg/dL (0.55-1.3)
[2024-03-19 07:00] LABS: BILIRUBIN,TOTAL 0.4 mg/dL (0.2-1); TOT PROT 5.2 g/dl (6.4-8.2)
[2024-03-19] MEDS: MUPIROCIN 2% TOPICAL OINTMENT FOR DECOLONIZATION NS SCH (11:13)
[2024-03-19] MEDS: methylPREDNISolone NA SUCC 40 MG/1 ML VIAL IVPUSH SCH ×2 (11:40→20:33)
[2024-03-19] MEDS ORDERED: ACETAMINOPHEN 1000 MG/100 ML BAG IVPB PRN (13:59)
[2024-03-19] MEDS ORDERED: TRIPLE LUMEN FLUSH 4 ML ML IVPUSH PRN (13:59)
[2024-03-19] MEDS: PIPERACILLIN/TAZOB 4.5 GM 4.5 GM in DEXTROSE 5%-WATER 100 ML IVPB SCH ×2 (15:12→20:33)
[2024-03-19] MEDS: ALBUTEROL SO4 2.5/IPRATROPIUM 0.5 INH SOL 3 ML VIAL.NEB. NEB SCH (15:35)
[2024-03-19] MEDS ORDERED: INSULIN ASPART SLIDING SCALE (NOVOLOG) 1 VIAL SQ SCH (16:30)
[2024-03-19] MEDS: CHLORHEXIDINE GLUCONATE 4% CLEANSER FOR DECOLONIZATION TP SCH (21:09)
[2024-03-19] MEDS: Lacosamide 200 MG/20 ML VIAL IVPB SCH (21:09)
[2024-03-19] MEDS: FUROSEMIDE 40 MG/4 ML INJECTABLE VIAL IVPUSH ONE (21:23)
[2024-03-19] MEDS ORDERED: PIPERACILLIN/TAZOB 4.5 GM 4.5 GM in DEXTROSE 5%-WATER 100 ML IVPB SCH (23:00)
[2024-03-19] MEDS ORDERED: VANCOMYCIN 1,000 MG in DEXTROSE 5%-WATER - 250 ML IVPB SCH (23:00)
[2024-03-20 06:25] LABS: BASO % 0.4 % (0-2.0); EOS % 0.2 % (0-4.5); HEMATOCRIT 39.4 % (35.4-49); HEMOGLOBIN 13.1 GM/dL (11.7-16.9); LYMPH % 10.3 % (8-40); MCH 28.7 pg (25.7-33.7); MCHC 33.3 g/dl (32.0-35.9); MEAN CELL VOLUME 85.9 fl (80-96); MEAN PLT VOLUME 8.1 fl (7.5-11.1); MONO % 3.3 % (3.8-10.2); NEUT % 85.8 % (42.8-82.8); PLATELET COUNT 175 10^3/uL (134-434); RBC 4.58 M/mm3 (4.00-5.60); RDW 16.4 % (11.9-15.9); WHITE BLOOD COUNT 11.6 K/mm3 (4.0-10.0)
[2024-03-20 06:34] LABS: INR 1.16 (0.83-1.09); PROTHROMBIN TIME (PATIENT) 13.3 SEC (9.7-13.0)
[2024-03-20 06:45] LABS: ALBUMIN 2.3 g/dl (3.4-5.0); BLOOD UREA NITROGEN 26.4 mg/dL (7-18); CALCIUM 7.9 mg/dL (8.5-10.1)
[2024-03-20 06:46] LABS: MAGNESIUM 2.1 mg/dL (1.8-2.4)
[2024-03-20] MEDS: LABETALOL HCL 5 MG/1 ML (100MG/20 ML VIAL) IVPUSH PRN (06:47)
[2024-03-20 06:48] LABS: CREATININE 0.7 mg/dL (0.55-1.3)
[2024-03-20 06:50] LABS: BILIRUBIN,TOTAL 0.5 mg/dL (0.2-1); TOT PROT 6.1 g/dl (6.4-8.2)
[2024-03-20] MEDS: SERTRALINE HCL 50 MG TABLET (FP) PO SCH (09:00)
[2024-03-20] MEDS: ENOXAPARIN NA (PORCINE) 40 MG/0.4 ML DISP.SYRIN SQ SCH (09:00)
[2024-03-20] MEDS: LISINOPRIL 20 MG TABLET PO SCH (09:00)
[2024-03-20] MEDS: PANTOPRAZOLE SODIUM 40 MG VIAL IVPUSH SCH (09:00)
[2024-03-20] MEDS: CALCIUM CARBONATE SUSPENSION - 1250 MG/5 ML ML PO ONE (09:01)
[2024-03-20] MEDS: SCOPOLAMINE HYDROBROMIDE 1 PATCH PATCH.TD72 TD SCH (09:01)
[2024-03-20] MEDS: levETIRAcetam 500 MG/5 ML INJECTION VIAL IVPB ONE ×2 (09:54→20:42)
[2024-03-20] MEDS: levETIRAcetam 500 MG/5 ML INJECTION VIAL IVPB SCH (13:09)
[2024-03-20] MEDS: PIPERACILLIN/TAZOB 3.375 GM 3.375 GM in DEXTROSE 5%-WATER - 50 ML IVPB SCH (17:39)
[2024-03-20] MEDS: PIPERACILLIN/TAZOB 4.5 GM 4.5 GM in DEXTROSE 5%-WATER 100 ML IVPB SCH ×2 (19:19)
[2024-03-20] MEDS: VANCOMYCIN 1,000 MG in DEXTROSE 5%-WATER - 250 ML IVPB SCH (19:19)
[2024-03-20] MEDS ORDERED: ACETAMINOPHEN INJECTION 100 ML IVPB ONE (20:26)
[2024-03-20] MEDS ORDERED: ACETAMINOPHEN 1000 MG/100 ML BAG IVPB PRN (20:55)
[2024-03-21] MEDS: SODIUM CHLORIDE FOR INHALATION 3 ML VIAL.NEB IH PRN (05:32)
[2024-03-21 06:43] LABS: VENOUS BASE EXCESS 3.5 mmol/L (-2-2); VENOUS O2 SATURATION 70.7 % (70-80); VENOUS PCO2 49.2 mmHg (38-52); VENOUS PH 7.396 (7.310-7.410)
[2024-03-21 06:46] LABS: HEMATOCRIT 37.9 % (35.4-49); HEMOGLOBIN 12.8 GM/dL (11.7-16.9); MCH 28.9 pg (25.7-33.7); MCHC 33.7 g/dl (32.0-35.9); MEAN CELL VOLUME 85.9 fl (80-96); MEAN PLT VOLUME 7.9 fl (7.5-11.1); PLATELET COUNT 182 10^3/uL (134-434); RBC 4.42 M/mm3 (4.00-5.60); WHITE BLOOD COUNT 15.4 K/mm3 (4.0-10.0)
[2024-03-21 06:51] LABS: INR 1.08 (0.83-1.09); PROTHROMBIN TIME (PATIENT) 12.4 SEC (9.7-13.0)
[2024-03-21 06:54] LABS: ACTIVATED PTT 27.9 SECONDS (25.2-36.5)
[2024-03-21 07:06] LABS: CALCIUM 8.7 mg/dL (8.5-10.1)
[2024-03-21 07:07] LABS: ALBUMIN 2.4 g/dl (3.4-5.0); BLOOD UREA NITROGEN 30.2 mg/dL (7-18); MAGNESIUM 2.4 mg/dL (1.8-2.4)
[2024-03-21 07:10] LABS: CREATININE 0.7 mg/dL (0.55-1.3); PHOSPHOROUS 2.8 mg/dL (2.5-4.9)
[2024-03-21 07:11] LABS: BILIRUBIN,TOTAL 0.5 mg/dL (0.2-1); TOT PROT 5.9 g/dl (6.4-8.2)
[2024-03-21 12:27] LABS: BF GLUCOSE (CSF ONLY) 88 mg/dL (40-70); CSF APPEARANCE CLEAR (CLEAR); CSF COLOR COLORLESS (COLORLESS); CSF WBC 1 mm3 (0-5)
[2024-03-21 19:27] LABS: EPI CELLS 31 /uL (0-25.1); HYALINE CASTS 0 /uL (0-3.1); PH,URINE 6.5 (5.0-8.0); URINE APPEARANCE CLEAR; URINE BACTERIA 12 /uL (0-1359); URINE BILIRUBIN NEGATIVE (NEGATIVE); URINE COLOR YELLOW; URINE GLUCOSE (UA) NEGATIVE (NEGATIVE); URINE KETONE NEGATIVE (NEGATIVE); URINE LEUK ESTERASE NEGATIVE (NEGATIVE); URINE NITRITE NEGATIVE (NEGATIVE); URINE PROTEIN NEGATIVE (NEGATIVE); URINE RBC 444 /uL (0-23.9); URINE WBC 12 /uL (0-25.8)
[2024-03-21 22:07] LABS: ARTERIAL BLD GAS O2 SATURATION 94.9 % (95-98); ARTERIAL BLOOD GAS BASE EXCESS 1.4 mmol/L (-2-2); ARTERIAL BLOOD GAS PO2 68.7 mmHg (80-100); ARTERIAL BLOOD GAS pH 7.471 (7.350-7.450)
[2024-03-21 22:10] LABS: ALLENS TEST POSITIVE
[2024-03-22 06:59] LABS: BASO % 0.2 % (0-2.0); EOS % 0.1 % (0-4.5); HEMATOCRIT 36.3 % (35.4-49); HEMOGLOBIN 12.1 GM/dL (11.7-16.9); MCH 28.7 pg (25.7-33.7); MCHC 33.4 g/dl (32.0-35.9); MEAN CELL VOLUME 86.2 fl (80-96); MEAN PLT VOLUME 8.4 fl (7.5-11.1); MONO % 6.2 % (3.8-10.2); NEUT % 81.5 % (42.8-82.8); PLATELET COUNT 180 10^3/uL (134-434); RBC 4.22 M/mm3 (4.00-5.60); RDW 17.2 % (11.9-15.9); WHITE BLOOD COUNT 12.7 K/mm3 (4.0-10.0)
[2024-03-22 07:25] LABS: POTASSIUM 3.8 mmol/L (3.5-5.1)
[2024-03-22 07:28] LABS: CALCIUM 8.6 mg/dL (8.5-10.1)
[2024-03-22 07:29] LABS: ALBUMIN 2.4 g/dl (3.4-5.0); BLOOD UREA NITROGEN 30.2 mg/dL (7-18)
[2024-03-22 07:32] LABS: CREATININE 0.6 mg/dL (0.55-1.3)
[2024-03-22 07:33] LABS: BILIRUBIN,TOTAL 0.4 mg/dL (0.2-1)
[2024-03-22 07:34] LABS: TOT PROT 5.6 g/dl (6.4-8.2)
[2024-03-23 06:24] LABS: BASO % 0.2 % (0-2.0); EOS % 0.1 % (0-4.5); HEMATOCRIT 35.3 % (35.4-49); HEMOGLOBIN 11.9 GM/dL (11.7-16.9); MCHC 33.7 g/dl (32.0-35.9); MEAN CELL VOLUME 85.9 fl (80-96); MEAN PLT VOLUME 8.1 fl (7.5-11.1); MONO % 7.4 % (3.8-10.2); NEUT % 78.3 % (42.8-82.8); PLATELET COUNT 175 10^3/uL (134-434); RDW 16.9 % (11.9-15.9); WHITE BLOOD COUNT 11.2 K/mm3 (4.0-10.0)
[2024-03-23 06:26] LABS: POTASSIUM 4.3 mmol/L (3.5-5.1)
[2024-03-23 06:29] LABS: CALCIUM 8.9 mg/dL (8.5-10.1)
[2024-03-23 06:30] LABS: ALBUMIN 2.4 g/dl (3.4-5.0); BLOOD UREA NITROGEN 28.7 mg/dL (7-18); MAGNESIUM 2.2 mg/dL (1.8-2.4)
[2024-03-23 06:33] LABS: CREATININE 0.5 mg/dL (0.55-1.3)
[2024-03-23 06:34] LABS: BILIRUBIN,TOTAL 0.5 mg/dL (0.2-1); TOT PROT 5.6 g/dl (6.4-8.2)
[2024-03-23] MEDS ORDERED: PIPERACILLIN/TAZOBACTAM 3.375 GM VIAL IVPB ONE (13:21)
[2024-03-23] MEDS: ACETAMINOPHEN 1000 MG/100 ML BAG IVPB PRN (18:48)
[2024-03-23] MEDS: FUROSEMIDE 40 MG/4 ML INJECTABLE VIAL IVPUSH ONE (20:41)
[2024-03-24 07:51] LABS: HEMATOCRIT 36.9 % (35.4-49); HEMOGLOBIN 12.3 GM/dL (11.7-16.9); MCHC 33.3 g/dl (32.0-35.9); MEAN PLT VOLUME 8.1 fl (7.5-11.1); PLATELET COUNT 180 10^3/uL (134-434); RBC 4.25 M/mm3 (4.00-5.60); RDW 17.2 % (11.9-15.9); WHITE BLOOD COUNT 9.4 K/mm3 (4.0-10.0)
[2024-03-24 08:05] LABS: POTASSIUM 4.4 mmol/L (3.5-5.1)
[2024-03-24 08:10] LABS: ALBUMIN 2.5 g/dl (3.4-5.0); CALCIUM 8.7 mg/dL (8.5-10.1); MAGNESIUM 2.2 mg/dL (1.8-2.4)
[2024-03-24 08:11] LABS: BLOOD UREA NITROGEN 28.4 mg/dL (7-18)
[2024-03-24 08:13] LABS: CREATININE 0.5 mg/dL (0.55-1.3)
[2024-03-24 08:14] LABS: BILIRUBIN,TOTAL 0.5 mg/dL (0.2-1)
[2024-03-24 08:15] LABS: TOT PROT 5.8 g/dl (6.4-8.2)
[2024-03-24 09:48] LABS: ANISOCYTOSIS 0; HELMET CELLS 0; HOWELL-JOLLY BODIES 0; MACROCYTOSIS 0; OVALOCYTE 0; ROULEAU 0; SICKELED CELLS 0; TARGET CELLS 0; TEAR DROP CELLS 0; TOXIC GRANULATION 0
[2024-03-24] MEDS: ALBUTEROL SO4 2.5/IPRATROPIUM 0.5 INH SOL 3 ML VIAL.NEB. NEB SCH (15:31)
[2024-03-25 07:48] LABS: BASO % 0.3 % (0-2.0); EOS % 0.2 % (0-4.5); HEMATOCRIT 37.5 % (35.4-49); HEMOGLOBIN 12.6 GM/dL (11.7-16.9); LYMPH % 10.1 % (8-40); MCHC 33.6 g/dl (32.0-35.9); MEAN CELL VOLUME 86.3 fl (80-96); MEAN PLT VOLUME 8.1 fl (7.5-11.1); MONO % 3.9 % (3.8-10.2); NEUT % 85.5 % (42.8-82.8); PLATELET COUNT 180 10^3/uL (134-434); RBC 4.35 M/mm3 (4.00-5.60); RDW 17.3 % (11.9-15.9); WHITE BLOOD COUNT 11.7 K/mm3 (4.0-10.0)
[2024-03-25 08:20] LABS: POTASSIUM 4.1 mmol/L (3.5-5.1)
[2024-03-25 08:22] LABS: CALCIUM 8.6 mg/dL (8.5-10.1); MAGNESIUM 2.2 mg/dL (1.8-2.4)
[2024-03-25 08:23] LABS: ALBUMIN 2.4 g/dl (3.4-5.0)
[2024-03-25 08:26] LABS: CREATININE 0.6 mg/dL (0.55-1.3)
[2024-03-25 08:27] LABS: BILIRUBIN,TOTAL 0.6 mg/dL (0.2-1); TOT PROT 5.7 g/dl (6.4-8.2)
[2024-03-26 07:23] LABS: HEMATOCRIT 37.5 % (35.4-49); HEMOGLOBIN 12.6 GM/dL (11.7-16.9); MCHC 33.5 g/dl (32.0-35.9); MEAN CELL VOLUME 86.7 fl (80-96); MEAN PLT VOLUME 8.1 fl (7.5-11.1); PLATELET COUNT 193 10^3/uL (134-434); RBC 4.32 M/mm3 (4.00-5.60); RDW 17.5 % (11.9-15.9); WHITE BLOOD COUNT 10.6 K/mm3 (4.0-10.0)
[2024-03-26 07:47] LABS: POTASSIUM 4.4 mmol/L (3.5-5.1)
[2024-03-26 07:53] LABS: ALBUMIN 2.2 g/dl (3.4-5.0); CALCIUM 8.6 mg/dL (8.5-10.1)
[2024-03-26 07:56] LABS: CREATININE 0.6 mg/dL (0.55-1.3)
[2024-03-26 07:58] LABS: BILIRUBIN,TOTAL 0.5 mg/dL (0.2-1); TOT PROT 5.6 g/dl (6.4-8.2)
[2024-03-26] MEDS: methylPREDNISolone NA SUCC 40 MG/1 ML VIAL IVPUSH SCH (09:45)
[2024-03-26] MEDS: CHLORHEXIDINE GLUCONATE 0.12% 15ML CUP MM SCH ×2 (12:15→21:03)
[2024-03-26] MEDS ORDERED: TRIPLE LUMEN FLUSH 4 ML ML IVPUSH PRN (19:41)
[2024-03-26] MEDS: ALBUTEROL SO4 2.5/IPRATROPIUM 0.5 INH SOL 3 ML VIAL.NEB. NEB SCH (20:14)
[2024-03-26] MEDS: DIVALPROEX SODIUM 250 MG TABLET E.C. PO SCH (21:02)
[2024-03-26] MEDS: CHLORHEXIDINE GLUCONATE 4% CLEANSER FOR DECOLONIZATION TP SCH (21:03)
[2024-03-26] MEDS: Lacosamide 200 MG/20 ML VIAL IVPB SCH (21:03)
[2024-03-26] MEDS: levETIRAcetam 500 MG/5 ML INJECTION VIAL IVPB SCH (22:02)
[2024-03-27] MEDS: PIPERACILLIN/TAZOB 3.375 GM 3.375 GM in DEXTROSE 5%-WATER - 50 ML IVPB SCH (01:36)
[2024-03-27 07:48] LABS: BASO % 0.2 % (0-2.0); EOS % 4.7 % (0-4.5); HEMATOCRIT 34.9 % (35.4-49); HEMOGLOBIN 11.9 GM/dL (11.7-16.9); LYMPH % 14.6 % (8-40); MCH 29.2 pg (25.7-33.7); MCHC 33.9 g/dl (32.0-35.9); MEAN CELL VOLUME 86.1 fl (80-96); MEAN PLT VOLUME 8.1 fl (7.5-11.1); MONO % 2.9 % (3.8-10.2); NEUT % 77.6 % (42.8-82.8); PLATELET COUNT 185 10^3/uL (134-434); RBC 4.06 M/mm3 (4.00-5.60); RDW 17.6 % (11.9-15.9); WHITE BLOOD COUNT 9.4 K/mm3 (4.0-10.0)
[2024-03-27 08:01] LABS: POTASSIUM 4.1 mmol/L (3.5-5.1)
[2024-03-27 08:09] LABS: ALBUMIN 2.1 g/dl (3.4-5.0); CALCIUM 8.2 mg/dL (8.5-10.1)
[2024-03-27 08:10] LABS: BLOOD UREA NITROGEN 24.5 mg/dL (7-18)
[2024-03-27 08:13] LABS: CREATININE 0.4 mg/dL (0.55-1.3)
[2024-03-27 08:14] LABS: BILIRUBIN,TOTAL 0.4 mg/dL (0.2-1); TOT PROT 5.2 g/dl (6.4-8.2)
[2024-03-27] MEDS ORDERED: DIVALPROEX SODIUM 250 MG TABLET E.C. PO SCH (10:00)
[2024-03-27] MEDS ORDERED: levETIRAcetam 500 MG/5 ML ORAL SOLUTION (UNIT-DOSE CUPS) GT SCH (10:00)
[2024-03-27] MEDS: levETIRAcetam 500 MG/5 ML INJECTION VIAL IVPB SCH (10:06)
[2024-03-27] MEDS: LISINOPRIL 20 MG TABLET PO SCH (10:06)
[2024-03-27] MEDS: ENOXAPARIN NA (PORCINE) 40 MG/0.4 ML DISP.SYRIN SQ SCH (10:06)
[2024-03-27] MEDS: PANTOPRAZOLE SODIUM 40 MG VIAL IVPUSH SCH (10:07)
[2024-03-28 06:49] LABS: HEMATOCRIT 36.9 % (35.4-49); HEMOGLOBIN 12.3 GM/dL (11.7-16.9); MCH 28.7 pg (25.7-33.7); MCHC 33.3 g/dl (32.0-35.9); MEAN CELL VOLUME 86.4 fl (80-96); MEAN PLT VOLUME 7.8 fl (7.5-11.1); PLATELET COUNT 208 10^3/uL (134-434); RBC 4.27 M/mm3 (4.00-5.60); RDW 17.7 % (11.9-15.9); WHITE BLOOD COUNT 8.8 K/mm3 (4.0-10.0)
[2024-03-28 06:53] LABS: POTASSIUM 4.4 mmol/L (3.5-5.1)
[2024-03-28 06:55] LABS: CALCIUM 8.5 mg/dL (8.5-10.1)
[2024-03-28 06:57] LABS: ALBUMIN 2.2 g/dl (3.4-5.0); BLOOD UREA NITROGEN 24.5 mg/dL (7-18); MAGNESIUM 2.3 mg/dL (1.8-2.4)
[2024-03-28 07:00] LABS: BILIRUBIN,TOTAL 0.4 mg/dL (0.2-1); CREATININE 0.4 mg/dL (0.55-1.3); PHOSPHOROUS 3.1 mg/dL (2.5-4.9); TOT PROT 5.5 g/dl (6.4-8.2)
[2024-03-28] MEDS: VALPROATE SODIUM 500 MG/5 ML VIAL IVPB SCH (15:47)
[2024-03-28] MEDS: VALPROATE SODIUM INJECTION 250 MG in SODIUM CHLORIDE 100 ML IVPB SCH (16:50)
[2024-03-28] MEDS: MINERAL OIL/PET HY-PHL TOPICAL OINTMENT 454 GM JAR TP SCH (16:50)
[2024-03-29 07:10] LABS: HEMATOCRIT 37.6 % (35.4-49); HEMOGLOBIN 12.5 GM/dL (11.7-16.9); MCH 28.7 pg (25.7-33.7); MCHC 33.2 g/dl (32.0-35.9); MEAN CELL VOLUME 86.5 fl (80-96); MEAN PLT VOLUME 7.9 fl (7.5-11.1); PLATELET COUNT 222 10^3/uL (134-434); RBC 4.35 M/mm3 (4.00-5.60); RDW 17.7 % (11.9-15.9); WHITE BLOOD COUNT 8.9 K/mm3 (4.0-10.0)
[2024-03-29 07:30] LABS: POTASSIUM 4.2 mmol/L (3.5-5.1)
[2024-03-29 07:35] LABS: ALBUMIN 2.2 g/dl (3.4-5.0); BLOOD UREA NITROGEN 21.1 mg/dL (7-18); CALCIUM 8.2 mg/dL (8.5-10.1); MAGNESIUM 2.2 mg/dL (1.8-2.4)
[2024-03-29 07:38] LABS: CREATININE 0.4 mg/dL (0.55-1.3)
[2024-03-29 07:40] LABS: BILIRUBIN,TOTAL 0.4 mg/dL (0.2-1); PHOSPHOROUS 2.7 mg/dL (2.5-4.9); TOT PROT 5.5 g/dl (6.4-8.2)
[2024-03-29] MEDS: SCOPOLAMINE HYDROBROMIDE 1 PATCH PATCH.TD72 TD SCH (10:45)
[2024-03-30 08:05] LABS: POTASSIUM 4.2 mmol/L (3.5-5.1)
[2024-03-30 08:16] LABS: BLOOD UREA NITROGEN 21.3 mg/dL (7-18); CALCIUM 8.3 mg/dL (8.5-10.1)
[2024-03-30 08:17] LABS: ALBUMIN 2.2 g/dl (3.4-5.0)
[2024-03-30 08:18] LABS: BILIRUBIN,TOTAL 0.4 mg/dL (0.2-1)
[2024-03-30 08:19] LABS: TOT PROT 5.5 g/dl (6.4-8.2)
[2024-03-30 08:20] LABS: CREATININE 0.4 mg/dL (0.55-1.3)
[2024-03-31 07:15] LABS: HEMATOCRIT 37.7 % (35.4-49); HEMOGLOBIN 12.7 GM/dL (11.7-16.9); MCHC 33.7 g/dl (32.0-35.9); MEAN CELL VOLUME 85.9 fl (80-96); MEAN PLT VOLUME 7.9 fl (7.5-11.1); PLATELET COUNT 239 10^3/uL (134-434); RBC 4.39 M/mm3 (4.00-5.60); RDW 17.9 % (11.9-15.9); WHITE BLOOD COUNT 8.8 K/mm3 (4.0-10.0)
[2024-03-31 07:41] LABS: POTASSIUM 4.4 mmol/L (3.5-5.1)
[2024-03-31 07:44] LABS: CALCIUM 8.4 mg/dL (8.5-10.1)
[2024-03-31 07:45] LABS: ALBUMIN 2.2 g/dl (3.4-5.0); BLOOD UREA NITROGEN 22.5 mg/dL (7-18); MAGNESIUM 2.2 mg/dL (1.8-2.4)
[2024-03-31 07:48] LABS: PHOSPHOROUS 2.5 mg/dL (2.5-4.9)
[2024-03-31 07:50] LABS: BILIRUBIN,TOTAL 0.3 mg/dL (0.2-1); CREATININE 0.3 mg/dL (0.55-1.3); TOT PROT 5.6 g/dl (6.4-8.2)
[2024-03-31] MEDS: LABETALOL HCL 5 MG/1 ML (100MG/20 ML VIAL) IVPUSH PRN (16:49)
[2024-04-01 07:23] LABS: HEMATOCRIT 36.8 % (35.4-49); HEMOGLOBIN 12.1 GM/dL (11.7-16.9); MCH 28.6 pg (25.7-33.7); MCHC 32.9 g/dl (32.0-35.9); MEAN CELL VOLUME 87.1 fl (80-96); MEAN PLT VOLUME 8.1 fl (7.5-11.1); PLATELET COUNT 252 10^3/uL (134-434); RBC 4.22 M/mm3 (4.00-5.60); RDW 17.5 % (11.9-15.9); WHITE BLOOD COUNT 8.9 K/mm3 (4.0-10.0)
[2024-04-01 07:39] LABS: POTASSIUM 4.6 mmol/L (3.5-5.1)
[2024-04-01 07:43] LABS: BLOOD UREA NITROGEN 21.9 mg/dL (7-18); CALCIUM 8.3 mg/dL (8.5-10.1); MAGNESIUM 2.2 mg/dL (1.8-2.4)
[2024-04-01 07:46] LABS: CREATININE 0.4 mg/dL (0.55-1.3); PHOSPHOROUS 2.6 mg/dL (2.5-4.9)
[2024-04-02 07:34] LABS: HEMATOCRIT 36.1 % (35.4-49); HEMOGLOBIN 12.2 GM/dL (11.7-16.9); MCH 29.2 pg (25.7-33.7); MCHC 33.8 g/dl (32.0-35.9); MEAN CELL VOLUME 86.4 fl (80-96); MEAN PLT VOLUME 7.9 fl (7.5-11.1); PLATELET COUNT 236 10^3/uL (134-434); RBC 4.18 M/mm3 (4.00-5.60); RDW 18.3 % (11.9-15.9)
[2024-04-02 07:51] LABS: POTASSIUM 4.4 mmol/L (3.5-5.1)
[2024-04-02 07:58] LABS: BLOOD UREA NITROGEN 21.3 mg/dL (7-18); CALCIUM 8.7 mg/dL (8.5-10.1); MAGNESIUM 2.3 mg/dL (1.8-2.4)
[2024-04-02 08:01] LABS: CREATININE 0.4 mg/dL (0.55-1.3)
[2024-04-02 08:02] LABS: PHOSPHOROUS 2.8 mg/dL (2.5-4.9)
[2024-04-02] MEDS ORDERED: TRIPLE LUMEN FLUSH 4 ML ML IVPUSH PRN (22:36)
[2024-04-03] MEDS: ALBUTEROL SO4 2.5/IPRATROPIUM 0.5 INH SOL 3 ML VIAL.NEB. NEB SCH (07:46)
[2024-04-03] MEDS: LISINOPRIL 20 MG TABLET PO SCH (09:31)
[2024-04-03] MEDS: ENOXAPARIN NA (PORCINE) 40 MG/0.4 ML DISP.SYRIN SQ SCH (09:47)
[2024-04-03] MEDS: CHLORHEXIDINE GLUCONATE 0.12% 15ML CUP MM SCH (09:47)
[2024-04-03] MEDS: Lacosamide 200 MG/20 ML VIAL IVPB SCH (09:58)
[2024-04-03] MEDS: PANTOPRAZOLE SODIUM 40 MG VIAL IVPUSH SCH (09:58)
[2024-04-03 10:19] LABS: HEMATOCRIT 36.6 % (35.4-49); HEMOGLOBIN 12.5 GM/dL (11.7-16.9); MCH 29.3 pg (25.7-33.7); MCHC 34.1 g/dl (32.0-35.9); PLATELET COUNT 254 10^3/uL (134-434); RBC 4.25 M/mm3 (4.00-5.60); RDW 18.3 % (11.9-15.9); WHITE BLOOD COUNT 9.4 K/mm3 (4.0-10.0)
[2024-04-03 10:23] LABS: POTASSIUM 4.4 mmol/L (3.5-5.1)
[2024-04-03 10:28] LABS: CALCIUM 8.7 mg/dL (8.5-10.1)
[2024-04-03 10:29] LABS: BLOOD UREA NITROGEN 22.5 mg/dL (7-18); MAGNESIUM 2.4 mg/dL (1.8-2.4)
[2024-04-03 10:32] LABS: CREATININE 0.4 mg/dL (0.55-1.3); PHOSPHOROUS 3.2 mg/dL (2.5-4.9)
[2024-04-03] MEDS: ALBUTEROL SO4 2.5/IPRATROPIUM 0.5 INH SOL 3 ML VIAL.NEB. NEB PRN (15:57)
[2024-04-03] MEDS ORDERED: CHLORHEXIDINE GLUCONATE 4% CLEANSER FOR DECOLONIZATION TP SCH (22:00)
[2024-04-03] MEDS ORDERED: VALPROATE SODIUM 500 MG/5 ML VIAL IVPB SCH (22:00)
[2024-04-03] MEDS: VALPROATE SODIUM INJECTION 500 MG in SODIUM CHLORIDE 100 ML IVPB SCH (23:22)
[2024-04-04] MEDS: ACETAMINOPHEN 1000 MG/100 ML BAG IVPB PRN (02:13)
[2024-04-04] MEDS: methylPREDNISolone NA SUCC 40 MG/1 ML VIAL IVPUSH SCH (03:29)
[2024-04-04] MEDS: MEROPENEM 1 GM in DEXTROSE 5%-WATER 100 ML IVPB SCH ×2 (04:23→16:43)
[2024-04-04 04:45] LABS: ARTERIAL BLD GAS O2 SATURATION 95.2 % (95-98); ARTERIAL BLOOD GAS BASE EXCESS 1.8 mmol/L (-2-2); ARTERIAL BLOOD GAS PO2 66.6 mmHg (80-100); ARTERIAL BLOOD GAS pH 7.518 (7.350-7.450)
[2024-04-04] MEDS: VANCOMYCIN/WATER FOR INJ (PEG) 1,000 MG/200 ML BAG IVPB ONE (06:43)
[2024-04-04 09:08] LABS: PH,URINE 6.5 (5.0-8.0); URINE APPEARANCE TURBID; URINE BILIRUBIN NEGATIVE (NEGATIVE); URINE COLOR RED; URINE GLUCOSE (UA) NEGATIVE (NEGATIVE); URINE KETONE TRACE (NEGATIVE); URINE LEUK ESTERASE NEGATIVE (NEGATIVE); URINE NITRITE NEGATIVE (NEGATIVE); URINE PROTEIN 1+ (NEGATIVE)
[2024-04-04 09:54] LABS: HEMATOCRIT 40.1 % (35.4-49); HEMOGLOBIN 13.1 GM/dL (11.7-16.9); MCH 28.2 pg (25.7-33.7); MCHC 32.6 g/dl (32.0-35.9); MEAN CELL VOLUME 86.7 fl (80-96); MEAN PLT VOLUME 8.2 fl (7.5-11.1); PLATELET COUNT 263 10^3/uL (134-434); RBC 4.62 M/mm3 (4.00-5.60); RDW 18.5 % (11.9-15.9); WHITE BLOOD COUNT 20.1 K/mm3 (4.0-10.0)
[2024-04-04 10:22] LABS: POTASSIUM 4.6 mmol/L (3.5-5.1)
[2024-04-04 10:40] LABS: ALBUMIN 2.2 g/dl (3.4-5.0); BLOOD UREA NITROGEN 32.1 mg/dL (7-18); CALCIUM 8.6 mg/dL (8.5-10.1)
[2024-04-04 10:44] LABS: CREATININE 0.6 mg/dL (0.55-1.3)
[2024-04-04 10:45] LABS: BILIRUBIN,TOTAL 0.6 mg/dL (0.2-1); TOT PROT 5.9 g/dl (6.4-8.2)
[2024-04-04 11:18] LABS: ANISOCYTOSIS 0; MACROCYTOSIS 0
[2024-04-04 11:20] LABS: PLATELET ESTIMATE ADEQUATE
[2024-04-04] MEDS: SCOPOLAMINE HYDROBROMIDE 1 PATCH PATCH.TD72 TD SCH (11:27)
[2024-04-04] MEDS: CEFEPIME 1 GM in DEXTROSE 5%-WATER 100 ML IVPB SCH (16:34)
[2024-04-04] MEDS: VANCOMYCIN/WATER FOR INJ (PEG) 1,000 MG/200 ML BAG IVPB SCH (18:13)
[2024-04-04] MEDS ORDERED: IMMUNE GLOBULIN (IgG-GAMMAKED) 10 GM VIAL IVPB SCH ×2 (19:00→19:12)
[2024-04-04] MEDS: IMMUN GLOB IVPB SCH (20:57)
[2024-04-04] MEDS: PRO IVPB SCH (20:57)
[2024-04-04] MEDS: [UNRECOGNIZED DRUG - OTHER] IVPB SCH (20:57)
[2024-04-04] MEDS: IGA IVPB SCH (20:57)
[2024-04-04] MEDS: methylPREDNISolone NA SUCC 125 MG/2 ML VIAL IVPUSH SCH (21:03)
[2024-04-04] MEDS: methylPREDNISolone NA SUCC 125 MG/2 ML VIAL IVPB SCH (22:45)
[2024-04-05] MEDS: INSULIN ASPART SLIDING SCALE (NOVOLOG) 1 VIAL SQ SCH ×2 (08:32→18:52)
[2024-04-05 09:11] LABS: HEMATOCRIT 33.9 % (35.4-49); HEMOGLOBIN 11.3 GM/dL (11.7-16.9); MCH 28.7 pg (25.7-33.7); MCHC 33.4 g/dl (32.0-35.9); MEAN CELL VOLUME 85.9 fl (80-96); MEAN PLT VOLUME 8.4 fl (7.5-11.1); PLATELET COUNT 232 10^3/uL (134-434); RBC 3.95 M/mm3 (4.00-5.60); RDW 17.9 % (11.9-15.9); WHITE BLOOD COUNT 16.3 K/mm3 (4.0-10.0)
[2024-04-05 09:27] LABS: POTASSIUM 4.4 mmol/L (3.5-5.1)
[2024-04-05 09:36] LABS: BILIRUBIN,TOTAL 0.4 mg/dL (0.2-1)
[2024-04-05 09:37] LABS: TOT PROT 6.1 g/dl (6.4-8.2)
[2024-04-05 09:38] LABS: ALBUMIN 1.9 g/dl (3.4-5.0)
[2024-04-05 09:39] LABS: BLOOD UREA NITROGEN 31.8 mg/dL (7-18); CALCIUM 8.4 mg/dL (8.5-10.1); CREATININE 0.5 mg/dL (0.55-1.3); MAGNESIUM 2.4 mg/dL (1.8-2.4)
[2024-04-05 09:41] LABS: PHOSPHOROUS 2.7 mg/dL (2.5-4.9)
[2024-04-05] MEDS ORDERED: methylPREDNISolone NA SUCC 40 MG/1 ML VIAL IVPUSH SCH (10:00)
[2024-04-05 10:14] LABS: HIV INTERPRETATION NEGATIVE (NEGATIVE)
[2024-04-05] MEDS: ACETAMINOPHEN 1000 MG/100 ML BAG IVPB PRN (11:52)
[2024-04-05] MEDS ORDERED: TRIPLE LUMEN FLUSH 4 ML ML IVPUSH PRN (15:30)
[2024-04-05] MEDS ORDERED: ACETAMINOPHEN 1000 MG/100 ML BAG IVPB PRN (15:30)
[2024-04-05 17:03] LABS: ARTERIAL BLOOD GAS BASE EXCESS 1.2 mmol/L (-2-2); ARTERIAL BLOOD GAS PO2 68.1 mmHg (80-100); ARTERIAL BLOOD GAS pH 7.482 (7.350-7.450)
[2024-04-05 17:04] LABS: ALLENS TEST POSITIVE
[2024-04-05] MEDS: CEFEPIME 1 GM in DEXTROSE 5%-WATER 100 ML IVPB SCH (18:52)
[2024-04-05] MEDS: VANCOMYCIN/WATER FOR INJ (PEG) 1,000 MG/200 ML BAG IVPB SCH (18:53)
[2024-04-05] MEDS ORDERED: INSULIN ASPART SLIDING SCALE (NOVOLOG) 1 VIAL SQ ONE (19:00)
[2024-04-05] MEDS: Lacosamide 200 MG/20 ML VIAL IVPB SCH (21:52)
[2024-04-05] MEDS ORDERED: MUPIROCIN 2% TOPICAL OINTMENT FOR DECOLONIZATION NS SCH (22:00)
[2024-04-05] MEDS ORDERED: CHLORHEXIDINE GLUCONATE 4% CLEANSER FOR DECOLONIZATION TP SCH (22:00)
[2024-04-05] MEDS ORDERED: CHLORHEXIDINE GLUCONATE 0.12% 15ML CUP MM SCH (22:00)
[2024-04-05] MEDS: VALPROATE SODIUM INJECTION 500 MG in SODIUM CHLORIDE 100 ML IVPB SCH (23:05)
[2024-04-06 07:33] LABS: BASO % 0.1 % (0-2.0); HEMATOCRIT 33.9 % (35.4-49); HEMOGLOBIN 11.2 GM/dL (11.7-16.9); LYMPH % 10.4 % (8-40); MCH 28.8 pg (25.7-33.7); MCHC 33.1 g/dl (32.0-35.9); MEAN CELL VOLUME 86.9 fl (80-96); MONO % 6.2 % (3.8-10.2); NEUT % 83.3 % (42.8-82.8); PLATELET COUNT 212 10^3/uL (134-434); WHITE BLOOD COUNT 14.6 K/mm3 (4.0-10.0)
[2024-04-06 07:37] LABS: POTASSIUM 3.8 mmol/L (3.5-5.1)
[2024-04-06 07:48] LABS: CALCIUM 8.6 mg/dL (8.5-10.1)
[2024-04-06 07:49] LABS: BLOOD UREA NITROGEN 34.3 mg/dL (7-18); MAGNESIUM 2.5 mg/dL (1.8-2.4)
[2024-04-06 07:52] LABS: BILIRUBIN,TOTAL 0.5 mg/dL (0.2-1); CREATININE 0.5 mg/dL (0.55-1.3); PHOSPHOROUS 2.6 mg/dL (2.5-4.9)
[2024-04-06 07:53] LABS: TOT PROT 6.1 g/dl (6.4-8.2)
[2024-04-06] MEDS: ALBUTEROL SO4 2.5/IPRATROPIUM 0.5 INH SOL 3 ML VIAL.NEB. NEB PRN (08:10)
[2024-04-06] MEDS: PANTOPRAZOLE SODIUM 40 MG VIAL IVPUSH SCH (09:04)
[2024-04-06] MEDS: LISINOPRIL 20 MG TABLET PO SCH (09:05)
[2024-04-06] MEDS: ENOXAPARIN NA (PORCINE) 40 MG/0.4 ML DISP.SYRIN SQ SCH (09:05)
[2024-04-06] MEDS: MINERAL OIL/PET HY-PHL TOPICAL OINTMENT 454 GM JAR TP SCH (09:06)
[2024-04-07 06:58] LABS: POTASSIUM 3.6 mmol/L (3.5-5.1)
[2024-04-07 07:01] LABS: BLOOD UREA NITROGEN 29.2 mg/dL (7-18); CALCIUM 8.7 mg/dL (8.5-10.1); MAGNESIUM 2.5 mg/dL (1.8-2.4)
[2024-04-07 07:04] LABS: CREATININE 0.4 mg/dL (0.55-1.3)
[2024-04-07 07:05] LABS: PHOSPHOROUS 2.9 mg/dL (2.5-4.9)
[2024-04-07 07:31] LABS: BASO % 0.2 % (0-2.0); EOS % 0.5 % (0-4.5); HEMATOCRIT 32.7 % (35.4-49); HEMOGLOBIN 10.9 GM/dL (11.7-16.9); LYMPH % 17.7 % (8-40); MCH 29.3 pg (25.7-33.7); MCHC 33.4 g/dl (32.0-35.9); MEAN CELL VOLUME 87.7 fl (80-96); MEAN PLT VOLUME 8.3 fl (7.5-11.1); MONO % 8.5 % (3.8-10.2); NEUT % 73.1 % (42.8-82.8); PLATELET COUNT 209 10^3/uL (134-434); RBC 3.73 M/mm3 (4.00-5.60); RDW 18.4 % (11.9-15.9); WHITE BLOOD COUNT 8.6 K/mm3 (4.0-10.0)
[2024-04-07] MEDS: SCOPOLAMINE HYDROBROMIDE 1 PATCH PATCH.TD72 TD SCH (09:01)
[2024-04-07] MEDS: VALPROATE SODIUM INJECTION 750 MG in SODIUM CHLORIDE 100 ML IVPB SCH (21:48)
[2024-04-08 07:14] LABS: HEMATOCRIT 32.5 % (35.4-49); MCH 29.8 pg (25.7-33.7); MEAN CELL VOLUME 87.7 fl (80-96); MEAN PLT VOLUME 8.2 fl (7.5-11.1); PLATELET COUNT 209 10^3/uL (134-434); RDW 17.5 % (11.9-15.9); WHITE BLOOD COUNT 8.5 K/mm3 (4.0-10.0)
[2024-04-08 07:19] LABS: POTASSIUM 3.4 mmol/L (3.5-5.1)
[2024-04-08 07:23] LABS: ALBUMIN 1.9 g/dl (3.4-5.0); BLOOD UREA NITROGEN 21.4 mg/dL (7-18); CALCIUM 8.5 mg/dL (8.5-10.1); MAGNESIUM 2.4 mg/dL (1.8-2.4)
[2024-04-08 07:25] LABS: CREATININE 0.3 mg/dL (0.55-1.3); PHOSPHOROUS 2.6 mg/dL (2.5-4.9)
[2024-04-08 07:28] LABS: BILIRUBIN,TOTAL 0.5 mg/dL (0.2-1); TOT PROT 5.5 g/dl (6.4-8.2)
[2024-04-09 06:57] LABS: POTASSIUM 3.7 mmol/L (3.5-5.1)
[2024-04-09 07:03] LABS: BLOOD UREA NITROGEN 21.1 mg/dL (7-18); CALCIUM 8.8 mg/dL (8.5-10.1)
[2024-04-09 07:06] LABS: CREATININE 0.3 mg/dL (0.55-1.3)
[2024-04-09 07:09] LABS: BILIRUBIN,TOTAL 0.5 mg/dL (0.2-1); TOT PROT 5.8 g/dl (6.4-8.2)
[2024-04-09] MEDS: WATER IVPB SCH (13:17)
[2024-04-09] MEDS: METHYLPREDNISOLONE NA SUCC IVPB SCH (13:17)
[2024-04-09] MEDS: DEXTROSE 5% IVPB SCH (13:17)
[2024-04-09] MEDS: methylPREDNISolone NA SUCC 125 MG/2 ML VIAL IVPUSH SCH (13:17)
[2024-04-09 14:08] LABS: WEST NILE VIRUS AB SERUM,IGM Negative (Negative)
[2024-04-10 06:55] LABS: HEMATOCRIT 34.7 % (35.4-49); HEMOGLOBIN 11.4 GM/dL (11.7-16.9); MCH 28.8 pg (25.7-33.7); MCHC 32.9 g/dl (32.0-35.9); MEAN CELL VOLUME 87.4 fl (80-96); MEAN PLT VOLUME 7.6 fl (7.5-11.1); PLATELET COUNT 246 10^3/uL (134-434); RBC 3.97 M/mm3 (4.00-5.60); RDW 17.8 % (11.9-15.9); WHITE BLOOD COUNT 8.8 K/mm3 (4.0-10.0)
[2024-04-10 07:03] LABS: INR 1.17 (0.83-1.09); PROTHROMBIN TIME (PATIENT) 13.4 SEC (9.7-13.0)
[2024-04-10 07:16] LABS: POTASSIUM 3.9 mmol/L (3.5-5.1)
[2024-04-10 07:24] LABS: CALCIUM 8.5 mg/dL (8.5-10.1)
[2024-04-10 07:25] LABS: BLOOD UREA NITROGEN 22.7 mg/dL (7-18); MAGNESIUM 2.3 mg/dL (1.8-2.4)
[2024-04-10 07:28] LABS: BILIRUBIN,TOTAL 0.6 mg/dL (0.2-1); CREATININE 0.2 mg/dL (0.55-1.3); PHOSPHOROUS 2.1 mg/dL (2.5-4.9); TOT PROT 5.5 g/dl (6.4-8.2)
[2024-04-10 09:41] LABS: ANISOCYTOSIS 0; HELMET CELLS 0; HOWELL-JOLLY BODIES 0; MACROCYTOSIS 0; OVALOCYTE 0; ROULEAU 0; SICKELED CELLS 0; TARGET CELLS 0; TEAR DROP CELLS 0; TOXIC GRANULATION 0
[2024-04-10] MEDS: LORazepam 2 MG/ML SDV VIAL IVPUSH ONE (10:39)
[2024-04-10] MEDS: NAPH,MB-DB/K PH,MBDB POWDER PACKET GT ONE (10:43)
[2024-04-10] MEDS ORDERED: INSULIN ASPART SLIDING SCALE (NOVOLOG) 1 VIAL SQ ONE (11:40)
[2024-04-10] MEDS: COLLAGENASE CLOSTRIDIUM HIST. 30 GRAMS TUBE TP SCH ×2 (11:43→13:00)
[2024-04-10] MEDS: PRO IVPB SCH (14:37)
[2024-04-10] MEDS: [UNRECOGNIZED DRUG - OTHER] IVPB SCH (14:37)
[2024-04-10] MEDS: IGA IVPB SCH (14:37)
[2024-04-10] MEDS: IMMUN GLOB IVPB SCH (14:37)
[2024-04-11 07:00] LABS: POTASSIUM 3.8 mmol/L (3.5-5.1)
[2024-04-11 07:04] LABS: BLOOD UREA NITROGEN 25.5 mg/dL (7-18); CALCIUM 8.7 mg/dL (8.5-10.1); MAGNESIUM 2.3 mg/dL (1.8-2.4)
[2024-04-11 07:07] LABS: CREATININE 0.4 mg/dL (0.55-1.3)
[2024-04-11 07:08] LABS: PHOSPHOROUS 2.1 mg/dL (2.5-4.9)
[2024-04-11 07:09] LABS: BILIRUBIN,TOTAL 0.6 mg/dL (0.2-1); TOT PROT 6.2 g/dl (6.4-8.2)
[2024-04-11] MEDS: LORazepam 2 MG/ML SDV VIAL IVPUSH SCH (09:20)
[2024-04-11] MEDS: NAPH,MB-DB/K PH,MBDB POWDER PACKET GT SCH (09:31)
[2024-04-12 06:46] LABS: HEMATOCRIT 35.9 % (35.4-49); HEMOGLOBIN 11.8 GM/dL (11.7-16.9); MCH 29.2 pg (25.7-33.7); MCHC 32.9 g/dl (32.0-35.9); MEAN CELL VOLUME 88.6 fl (80-96); MEAN PLT VOLUME 7.8 fl (7.5-11.1); PLATELET COUNT 226 10^3/uL (134-434); RBC 4.06 M/mm3 (4.00-5.60); RDW 18.3 % (11.9-15.9)
[2024-04-12 07:02] LABS: POTASSIUM 4.3 mmol/L (3.5-5.1)
[2024-04-12 07:07] LABS: BLOOD UREA NITROGEN 23.4 mg/dL (7-18); CALCIUM 8.5 mg/dL (8.5-10.1); MAGNESIUM 2.4 mg/dL (1.8-2.4)
[2024-04-12 07:10] LABS: CREATININE 0.4 mg/dL (0.55-1.3)
[2024-04-12 07:11] LABS: PHOSPHOROUS 2.2 mg/dL (2.5-4.9)
[2024-04-12] MEDS: ASCORBIC ACID 500 MG TABLET (FP) PO SCH (09:38)
[2024-04-12] MEDS: ZINC SULFATE 220 MG CAPSULE (FP) PO SCH (09:38)
[2024-04-12] MEDS: POTASSIUM PHOSPHATE 30 MM in DEXTROSE 5%-WATER - 500 ML IVPB ONE (10:42)
[2024-04-12] MEDS: FUROSEMIDE 40 MG/4 ML INJECTABLE VIAL IVPUSH PRN (10:59)
[2024-04-12] MEDS: hydrALAZINE HCL 20 MG/ML VIAL IVPUSH ONE (13:30)
[2024-04-12] MEDS: amLODIPine BESYLATE 5 MG TABLET (FP) PO SCH (13:30)
[2024-04-12] MEDS ORDERED: LORazepam 2 MG/ML SDV VIAL IVPUSH SCH (13:37)
[2024-04-12] MEDS ORDERED: FUROSEMIDE 40 MG/4 ML INJECTABLE VIAL IVPUSH PRN (13:37)
[2024-04-12] MEDS ORDERED: TRIPLE LUMEN FLUSH 4 ML ML IVPUSH PRN (13:37)
[2024-04-12] MEDS: NAPH,MB-DB/K PH,MBDB POWDER PACKET GT SCH (14:08)
[2024-04-12] MEDS: DEXTROSE 5% IVPB SCH (14:15)
[2024-04-12] MEDS: WATER IVPB SCH (14:15)
[2024-04-12] MEDS: METHYLPREDNISOLONE NA SUCC IVPB SCH (14:15)
[2024-04-12] MEDS: INSULIN ASPART SLIDING SCALE (NOVOLOG) 1 VIAL SQ SCH (17:30)
[2024-04-12] MEDS: Lacosamide 200 MG/20 ML VIAL IVPB SCH (21:31)
[2024-04-12] MEDS: VALPROATE SODIUM INJECTION 750 MG in SODIUM CHLORIDE 100 ML IVPB SCH (21:31)
[2024-04-12] MEDS: LISINOPRIL 20 MG TABLET PO SCH (21:31)
[2024-04-13] MEDS: SCOPOLAMINE HYDROBROMIDE 1 PATCH PATCH.TD72 TD SCH (10:01)
[2024-04-13] MEDS: ENOXAPARIN NA (PORCINE) 40 MG/0.4 ML DISP.SYRIN SQ SCH (10:02)
[2024-04-13] MEDS: PANTOPRAZOLE SODIUM 40 MG VIAL IVPUSH SCH (10:03)
[2024-04-13] MEDS: COLLAGENASE CLOSTRIDIUM HIST. 30 GRAMS TUBE TP SCH (10:04)
[2024-04-13 10:48] LABS: HEMATOCRIT 34.3 % (35.4-49); HEMOGLOBIN 11.3 GM/dL (11.7-16.9); MCH 28.6 pg (25.7-33.7); MCHC 32.9 g/dl (32.0-35.9); MEAN PLT VOLUME 7.6 fl (7.5-11.1); PLATELET COUNT 243 10^3/uL (134-434); RBC 3.94 M/mm3 (4.00-5.60); RDW 18.3 % (11.9-15.9); WHITE BLOOD COUNT 14.6 K/mm3 (4.0-10.0)
[2024-04-13 11:23] LABS: POTASSIUM 3.9 mmol/L (3.5-5.1)
[2024-04-13 11:24] LABS: CALCIUM 8.5 mg/dL (8.5-10.1)
[2024-04-13 11:25] LABS: BLOOD UREA NITROGEN 24.2 mg/dL (7-18)
[2024-04-13 11:28] LABS: CREATININE 0.5 mg/dL (0.55-1.3)
[2024-04-13] MEDS: PRO IVPB SCH (11:34)
[2024-04-13] MEDS: IGA IVPB SCH (11:34)
[2024-04-13] MEDS: IMMUN GLOB IVPB SCH (11:34)
[2024-04-13] MEDS: [UNRECOGNIZED DRUG - OTHER] IVPB SCH (11:34)
[2024-04-13] MEDS: FUROSEMIDE 40 MG/4 ML INJECTABLE VIAL IVPUSH SCH ×2 (11:44→14:45)
[2024-04-13] MEDS: ALBUTEROL SO4 2.5/IPRATROPIUM 0.5 INH SOL 3 ML VIAL.NEB. NEB SCH (12:33)
[2024-04-13] MEDS: MINERAL OIL/PET HY-PHL TOPICAL OINTMENT 454 GM JAR TP SCH (13:40)
[2024-04-13] MEDS ORDERED: ALBUTEROL SO4 2.5/IPRATROPIUM 0.5 INH SOL 3 ML VIAL.NEB. NEB ONE (14:56)
[2024-04-14 06:52] LABS: POTASSIUM 3.7 mmol/L (3.5-5.1)
[2024-04-14 06:56] LABS: BLOOD UREA NITROGEN 27.1 mg/dL (7-18); CALCIUM 8.4 mg/dL (8.5-10.1)
[2024-04-14 07:00] LABS: CREATININE 0.6 mg/dL (0.55-1.3)
[2024-04-14 07:01] LABS: BILIRUBIN,TOTAL 0.8 mg/dL (0.2-1); TOT PROT 8.2 g/dl (6.4-8.2)
[2024-04-14 07:02] LABS: HEMATOCRIT 35.6 % (35.4-49); HEMOGLOBIN 11.9 GM/dL (11.7-16.9); MCH 29.2 pg (25.7-33.7); MCHC 33.3 g/dl (32.0-35.9); MEAN CELL VOLUME 87.6 fl (80-96); MEAN PLT VOLUME 8.3 fl (7.5-11.1); PLATELET COUNT 247 10^3/uL (134-434); RBC 4.06 M/mm3 (4.00-5.60); RDW 18.3 % (11.9-15.9); WHITE BLOOD COUNT 16.9 K/mm3 (4.0-10.0)
[2024-04-14] MEDS: IMMUN GLOB G(IGG)/PRO/IGA 0-50 400 ML IVPB ONE (09:48)
[2024-04-14] MEDS ORDERED: IMMUN GLOB G(IGG)/PRO/IGA 0-50 400 ML IVPB ONE (10:00)
[2024-04-14] MEDS ORDERED: INSULIN ASPART SLIDING SCALE (NOVOLOG) 1 VIAL SQ ONE (10:01)
[2024-04-15] MEDS: FUROSEMIDE 40 MG/4 ML INJECTABLE VIAL IVPUSH SCH (05:29)
[2024-04-15 06:42] LABS: HEMOGLOBIN 11.4 GM/dL (11.7-16.9); MCH 28.7 pg (25.7-33.7); MCHC 32.7 g/dl (32.0-35.9); MEAN PLT VOLUME 8.1 fl (7.5-11.1); PLATELET COUNT 236 10^3/uL (134-434); RBC 3.98 M/mm3 (4.00-5.60); RDW 18.3 % (11.9-15.9); WHITE BLOOD COUNT 26.5 K/mm3 (4.0-10.0)
[2024-04-15 06:58] LABS: POTASSIUM 3.7 mmol/L (3.5-5.1)
[2024-04-15 07:02] LABS: ALBUMIN 1.9 g/dl (3.4-5.0); BLOOD UREA NITROGEN 26.5 mg/dL (7-18); CALCIUM 8.6 mg/dL (8.5-10.1)
[2024-04-15 07:05] LABS: CREATININE 0.4 mg/dL (0.55-1.3)
[2024-04-15 07:07] LABS: BILIRUBIN,TOTAL 0.6 mg/dL (0.2-1); TOT PROT 8.4 g/dl (6.4-8.2)
[2024-04-15 17:09] LABS: MUMPS AB IGG CSF < 5.0 AU/mL (<=10.9)
[2024-04-16 06:50] LABS: HEMATOCRIT 34.1 % (35.4-49); HEMOGLOBIN 11.4 GM/dL (11.7-16.9); MCH 29.4 pg (25.7-33.7); MCHC 33.4 g/dl (32.0-35.9); MEAN CELL VOLUME 87.9 fl (80-96); PLATELET COUNT 195 10^3/uL (134-434); RBC 3.87 M/mm3 (4.00-5.60); RDW 18.1 % (11.9-15.9); WHITE BLOOD COUNT 19.3 K/mm3 (4.0-10.0)
[2024-04-16 07:24] LABS: POTASSIUM 3.7 mmol/L (3.5-5.1)
[2024-04-16 07:26] LABS: CALCIUM 8.5 mg/dL (8.5-10.1)
[2024-04-16 07:27] LABS: ALBUMIN 1.7 g/dl (3.4-5.0); BLOOD UREA NITROGEN 26.7 mg/dL (7-18)
[2024-04-16 07:30] LABS: CREATININE 0.3 mg/dL (0.55-1.3)
[2024-04-16 07:31] LABS: BILIRUBIN,TOTAL 0.5 mg/dL (0.2-1)
[2024-04-16 07:32] LABS: TOT PROT 7.2 g/dl (6.4-8.2)
[2024-04-16 09:22] LABS: ANISOCYTOSIS 0; MACROCYTOSIS 0
[2024-04-17] MEDS: KETOROLAC TROMETHAMINE 15 MG/ML VIAL IVPUSH ONE (00:23)
[2024-04-17 08:40] LABS: URINE APPEARANCE CLOUDY; URINE BILIRUBIN NEGATIVE (NEGATIVE); URINE COLOR DK YELLOW; URINE GLUCOSE (UA) NEGATIVE (NEGATIVE); URINE KETONE TRACE (NEGATIVE)
[2024-04-17 08:41] LABS: EPI CELLS 4.1 /uL (0-25.1); HYALINE CASTS 1.49 /uL (0-3.1); URINE LEUK ESTERASE NEGATIVE (NEGATIVE); URINE NITRITE NEGATIVE (NEGATIVE); URINE PROTEIN 30 (NEGATIVE); URINE RBC 38.5 /uL (0-23.9)
[2024-04-17 08:42] LABS: URINE BACTERIA 85202.9 /uL (0-1359)
[2024-04-17 08:49] LABS: YEAST OCCASIONAL (NEGATIVE)
[2024-04-17] MEDS: AMINO ACIDS/PROTEIN HYDROLYS 30 ML LIQUID.PKT PO SCH (17:14)
[2024-04-18] MEDS: ACETAMINOPHEN 1000 MG/100 ML BAG IVPB ONE (06:36)
[2024-04-18 06:54] LABS: HEMATOCRIT 36.5 % (35.4-49); MCH 29.4 pg (25.7-33.7); MEAN CELL VOLUME 89.2 fl (80-96); MEAN PLT VOLUME 8.9 fl (7.5-11.1); PLATELET COUNT 180 10^3/uL (134-434); RBC 4.09 M/mm3 (4.00-5.60); RDW 18.6 % (11.9-15.9); WHITE BLOOD COUNT 20.5 K/mm3 (4.0-10.0)
[2024-04-18 07:13] LABS: POTASSIUM 3.6 mmol/L (3.5-5.1)
[2024-04-18 07:15] LABS: ALBUMIN 1.7 g/dl (3.4-5.0); BLOOD UREA NITROGEN 27.1 mg/dL (7-18); CALCIUM 8.4 mg/dL (8.5-10.1)
[2024-04-18 07:18] LABS: CREATININE 0.3 mg/dL (0.55-1.3)
[2024-04-18 07:20] LABS: BILIRUBIN,TOTAL 0.6 mg/dL (0.2-1); TOT PROT 6.8 g/dl (6.4-8.2)
[2024-04-18] MEDS: PIPERACILLIN/TAZOB 3.375 GM 3.375 GM in DEXTROSE 5%-WATER - 50 ML IVPB SCH (17:32)
[2024-04-19 06:40] LABS: BASO % 0.2 % (0-2.0); EOS % 0.2 % (0-4.5); HEMATOCRIT 35.9 % (35.4-49); HEMOGLOBIN 11.8 GM/dL (11.7-16.9); LYMPH % 8.6 % (8-40); MCH 29.5 pg (25.7-33.7); MEAN CELL VOLUME 89.5 fl (80-96); MEAN PLT VOLUME 8.8 fl (7.5-11.1); MONO % 5.4 % (3.8-10.2); NEUT % 85.6 % (42.8-82.8); PLATELET COUNT 170 10^3/uL (134-434); RBC 4.01 M/mm3 (4.00-5.60); RDW 18.2 % (11.9-15.9); WHITE BLOOD COUNT 14.9 K/mm3 (4.0-10.0)
[2024-04-19 06:57] LABS: POTASSIUM 3.5 mmol/L (3.5-5.1)
[2024-04-19 06:59] LABS: CALCIUM 8.2 mg/dL (8.5-10.1)
[2024-04-19 07:01] LABS: ALBUMIN 1.6 g/dl (3.4-5.0)
[2024-04-19 07:04] LABS: CREATININE 0.3 mg/dL (0.55-1.3)
[2024-04-19 07:05] LABS: BILIRUBIN,TOTAL 0.4 mg/dL (0.2-1)
[2024-04-19 07:06] LABS: TOT PROT 6.4 g/dl (6.4-8.2)
[2024-04-19] MEDS ORDERED: MEROPENEM 1 GM in DEXTROSE 5%-WATER 100 ML IVPB SCH (12:15)
[2024-04-19] MEDS: PIPERACILLIN/TAZOB 3.375 GM 3.375 GM in DEXTROSE 5%-WATER - 50 ML IVPB SCH (13:01)
[2024-04-19] MEDS: MEROPENEM 1 GM in DEXTROSE 5%-WATER 100 ML IVPB SCH (13:33)
[2024-04-19] MEDS: SCOPOLAMINE HYDROBROMIDE 1 PATCH PATCH.TD72 TD SCH (18:00)
[2024-04-20] MEDS: ACETAMINOPHEN 1000 MG/100 ML BAG IVPB PRN
[2024-04-20 08:02] LABS: POTASSIUM 3.2 mmol/L (3.5-5.1)
[2024-04-20 08:06] LABS: ALBUMIN 1.7 g/dl (3.4-5.0); BLOOD UREA NITROGEN 23.8 mg/dL (7-18); CALCIUM 8.4 mg/dL (8.5-10.1)
[2024-04-20 08:09] LABS: CREATININE 0.3 mg/dL (0.55-1.3)
[2024-04-20 08:11] LABS: BILIRUBIN,TOTAL 0.5 mg/dL (0.2-1); TOT PROT 6.2 g/dl (6.4-8.2)
[2024-04-20 08:20] LABS: BASO % 0.4 % (0-2.0); HEMATOCRIT 34.6 % (35.4-49); HEMOGLOBIN 11.6 GM/dL (11.7-16.9); LYMPH % 7.3 % (8-40); MCH 29.7 pg (25.7-33.7); MCHC 33.5 g/dl (32.0-35.9); MEAN CELL VOLUME 88.7 fl (80-96); MEAN PLT VOLUME 9.5 fl (7.5-11.1); MONO % 6.1 % (3.8-10.2); NEUT % 86.2 % (42.8-82.8); PLATELET COUNT 181 10^3/uL (134-434); RDW 18.2 % (11.9-15.9); WHITE BLOOD COUNT 15.4 K/mm3 (4.0-10.0)
[2024-04-20] MEDS ORDERED: INSULIN ASPART SLIDING SCALE (NOVOLOG) 1 VIAL SQ ONE (10:46)
[2024-04-20] MEDS: POTASSIUM CHLORIDE ORAL LIQUID 20 MEQ/15 ML GT ONE (13:04)
[2024-04-20 13:15] LABS: MAGNESIUM 2.3 mg/dL (1.8-2.4)
[2024-04-20 13:17] LABS: PHOSPHOROUS 2.5 mg/dL (2.5-4.9)
[2024-04-21 07:47] LABS: HEMATOCRIT 34.2 % (35.4-49); HEMOGLOBIN 11.7 GM/dL (11.7-16.9); MCHC 34.3 g/dl (32.0-35.9); MEAN CELL VOLUME 87.7 fl (80-96); MEAN PLT VOLUME 8.3 fl (7.5-11.1); PLATELET COUNT 214 10^3/uL (134-434); RDW 18.4 % (11.9-15.9)
[2024-04-21 08:19] LABS: POTASSIUM 3.7 mmol/L (3.5-5.1)
[2024-04-21 08:21] LABS: CALCIUM 8.3 mg/dL (8.5-10.1)
[2024-04-21 08:22] LABS: ALBUMIN 1.6 g/dl (3.4-5.0); BLOOD UREA NITROGEN 28.7 mg/dL (7-18)
[2024-04-21 08:25] LABS: CREATININE 0.3 mg/dL (0.55-1.3)
[2024-04-21 08:26] LABS: BILIRUBIN,TOTAL 0.3 mg/dL (0.2-1); TOT PROT 6.2 g/dl (6.4-8.2)
[2024-04-21 08:38] LABS: ANISOCYTOSIS 0; HELMET CELLS 0; HOWELL-JOLLY BODIES 0; MACROCYTOSIS 0; OVALOCYTE 0; ROULEAU 0; SICKELED CELLS 0; TARGET CELLS 0; TEAR DROP CELLS 0; TOXIC GRANULATION 0
[2024-04-22 07:38] LABS: POTASSIUM 3.6 mmol/L (3.5-5.1)
[2024-04-22 07:43] LABS: ALBUMIN 1.6 g/dl (3.4-5.0); BLOOD UREA NITROGEN 25.8 mg/dL (7-18); CALCIUM 8.1 mg/dL (8.5-10.1); MAGNESIUM 2.1 mg/dL (1.8-2.4)
[2024-04-22 07:44] LABS: HEMATOCRIT 35.1 % (35.4-49); HEMOGLOBIN 11.7 GM/dL (11.7-16.9); MCH 29.8 pg (25.7-33.7); MCHC 33.4 g/dl (32.0-35.9); MEAN CELL VOLUME 89.2 fl (80-96); MEAN PLT VOLUME 8.8 fl (7.5-11.1); PLATELET COUNT 200 10^3/uL (134-434); RBC 3.93 M/mm3 (4.00-5.60); RDW 18.5 % (11.9-15.9); WHITE BLOOD COUNT 12.6 K/mm3 (4.0-10.0)
[2024-04-22 07:46] LABS: CREATININE 0.3 mg/dL (0.55-1.3)
[2024-04-22 07:47] LABS: BILIRUBIN,TOTAL 0.3 mg/dL (0.2-1); PHOSPHOROUS 2.6 mg/dL (2.5-4.9)
[2024-04-22 07:48] LABS: TOT PROT 5.8 g/dl (6.4-8.2)
[2024-04-22] MEDS: VALPROATE SODIUM INJECTION 1,000 MG in SODIUM CHLORIDE 100 ML IVPB SCH (21:53)
[2024-04-22] MEDS: levETIRAcetam 500 MG/5 ML INJECTION VIAL IVPB SCH (21:53)
[2024-04-22] MEDS ORDERED: VALPROATE SODIUM 500 MG/5 ML VIAL IVPB SCH (22:00)
[2024-04-22] MEDS ORDERED: VALPROATE SODIUM INJECTION 500 MG in SODIUM CHLORIDE 100 ML IVPB SCH (22:00)
[2024-04-23 07:33] LABS: HEMOGLOBIN 11.1 GM/dL (11.7-16.9); MCH 29.8 pg (25.7-33.7); MCHC 32.6 g/dl (32.0-35.9); MEAN CELL VOLUME 91.5 fl (80-96); PLATELET COUNT 204 10^3/uL (134-434); POTASSIUM 4.1 mmol/L (3.5-5.1); RBC 3.71 M/mm3 (4.00-5.60); RDW 18.9 % (11.9-15.9); WHITE BLOOD COUNT 10.8 K/mm3 (4.0-10.0)
[2024-04-23 07:42] LABS: CALCIUM 8.1 mg/dL (8.5-10.1)
[2024-04-23 07:43] LABS: ALBUMIN 1.5 g/dl (3.4-5.0); BLOOD UREA NITROGEN 21.7 mg/dL (7-18)
[2024-04-23 07:46] LABS: CREATININE 0.2 mg/dL (0.55-1.3)
[2024-04-23 07:47] LABS: BILIRUBIN,TOTAL 0.8 mg/dL (0.2-1); TOT PROT 5.5 g/dl (6.4-8.2)
[2024-04-23 11:38] LABS: ARTERIAL BLD GAS O2 SATURATION 97.3 % (95-98); ARTERIAL BLOOD GAS BASE EXCESS 5.5 mmol/L (-2-2); ARTERIAL BLOOD GAS PO2 87.7 mmHg (80-100)
[2024-04-23 11:40] LABS: ALLENS TEST POSITIVE
[2024-04-23] MEDS: SODIUM CHLORIDE 1,000 ML IV STA (19:00)
[2024-04-23] MEDS: DEXTROSE 5%-LACTATED RINGERS 1,000 ML IV SCH (21:02)
[2024-04-24 07:38] LABS: POTASSIUM 4.2 mmol/L (3.5-5.1)
[2024-04-24 07:40] LABS: CALCIUM 8.1 mg/dL (8.5-10.1)
[2024-04-24 07:41] LABS: ALBUMIN 1.5 g/dl (3.4-5.0); BLOOD UREA NITROGEN 14.8 mg/dL (7-18); MAGNESIUM 2.3 mg/dL (1.8-2.4)
[2024-04-24 07:44] LABS: CREATININE 0.2 mg/dL (0.55-1.3)
[2024-04-24 07:45] LABS: BILIRUBIN,TOTAL 0.3 mg/dL (0.2-1); PHOSPHOROUS 2.6 mg/dL (2.5-4.9); TOT PROT 5.1 g/dl (6.4-8.2)
[2024-04-25 09:58] LABS: HEMATOCRIT 30.9 % (35.4-49); HEMOGLOBIN 10.3 GM/dL (11.7-16.9); MCH 29.9 pg (25.7-33.7); MCHC 33.4 g/dl (32.0-35.9); MEAN CELL VOLUME 89.6 fl (80-96); PLATELET COUNT 167 10^3/uL (134-434); RBC 3.45 M/mm3 (4.00-5.60); RDW 18.3 % (11.9-15.9); WHITE BLOOD COUNT 8.5 K/mm3 (4.0-10.0)
[2024-04-25 10:21] LABS: CHLORIDE 115 mmol/L (98-107); POTASSIUM 3.4 mmol/L (3.5-5.1); SODIUM 146 mmol/L (136-145)
[2024-04-25 10:26] LABS: ALBUMIN 1.5 g/dl (3.4-5.0); ANION GAP 3 mmol/L (4-13); CALCIUM 8.2 mg/dL (8.5-10.1); CO2 29 mmol/L (21-32)
[2024-04-25 10:27] LABS: GLUCOSE,RANDOM 120 mg/dL (74-106)
[2024-04-25 10:29] LABS: CREATININE < 0.2 mg/dL (0.55-1.3); SGOT/AST 92 U/L (15-37); SGPT/ALT 71 U/L (13-61)
[2024-04-25 10:31] LABS: BILIRUBIN,TOTAL 0.3 mg/dL (0.2-1)
[2024-04-25 10:32] LABS: ALK PHOS 52 U/L (45-117)
[2024-04-25] MEDS: VANCOMYCIN/WATER FOR INJ (PEG) 1,000 MG/200 ML BAG IVPB SCH (12:10)
[2024-04-25] MEDS: AMINO ACIDS 4.25%/D5W 1,000 ML IV SCH (14:00)
[2024-04-26] MEDS: VANCOMYCIN/WATER FOR INJ (PEG) 1,000 MG/200 ML BAG IVPB SCH (02:55)
[2024-04-26 08:06] LABS: HEMATOCRIT 33.4 % (35.4-49); MCH 30.2 pg (25.7-33.7); MCHC 32.8 g/dl (32.0-35.9); MEAN CELL VOLUME 92.1 fl (80-96); MEAN PLT VOLUME 8.2 fl (7.5-11.1); PLATELET COUNT 170 10^3/uL (134-434); RBC 3.63 M/mm3 (4.00-5.60); RDW 18.8 % (11.9-15.9); WHITE BLOOD COUNT 8.3 K/mm3 (4.0-10.0)
[2024-04-26 08:14] LABS: CHLORIDE 113 mmol/L (98-107); POTASSIUM 3.6 mmol/L (3.5-5.1); SODIUM 145 mmol/L (136-145)
[2024-04-26 08:18] LABS: ALBUMIN 1.4 g/dl (3.4-5.0)
[2024-04-26 08:19] LABS: ANION GAP 4 mmol/L (4-13); BLOOD UREA NITROGEN 12.6 mg/dL (7-18); CO2 29 mmol/L (21-32); GLUCOSE,RANDOM 92 mg/dL (74-106)
[2024-04-26 08:21] LABS: SGOT/AST 76 U/L (15-37); SGPT/ALT 55 U/L (13-61)
[2024-04-26 08:22] LABS: CREATININE < 0.2 mg/dL (0.55-1.3)
[2024-04-26 08:23] LABS: BILIRUBIN,TOTAL 0.4 mg/dL (0.2-1)
[2024-04-26 08:24] LABS: ALK PHOS 52 U/L (45-117)
[2024-04-26] MEDS: VANCOMYCIN 1,000 MG in DEXTROSE 5%-WATER - 250 ML IVPB SCH (08:30)
[2024-04-26 10:00] LABS: ARTERIAL BLD GAS O2 SATURATION 97.9 % (95-98); ARTERIAL BLOOD GAS BASE EXCESS -0.5 mmol/L (-2-2); ARTERIAL BLOOD GAS PO2 103.6 mmHg (80-100); ARTERIAL BLOOD GAS pH 7.427 (7.350-7.450)
[2024-04-26 10:03] LABS: ALLENS TEST POSITIVE
[2024-04-26] MEDS: AMINO ACIDS 4.25%/D5W 1,000 ML IV SCH (16:14)
[2024-04-26] MEDS: FAT EMULSION/OLIVE/SOY/PHOSPHO 250 ML IV SCH (21:30)
[2024-04-26] MEDS ORDERED: FAT EMULSION/OLIVE/SOY (CLINOLIPID) 250 ML EMULSION IV SCH (22:00)
[2024-04-28 08:24] LABS: HEMATOCRIT 37.1 % (35.4-49); HEMOGLOBIN 12.7 GM/dL (11.7-16.9); MCH 30.5 pg (25.7-33.7); MCHC 34.3 g/dl (32.0-35.9); MEAN CELL VOLUME 88.9 fl (80-96); MEAN PLT VOLUME 8.1 fl (7.5-11.1); PLATELET COUNT 217 10^3/uL (134-434); RBC 4.17 M/mm3 (4.00-5.60); RDW 18.4 % (11.9-15.9); WHITE BLOOD COUNT 5.9 K/mm3 (4.0-10.0)
[2024-04-28 08:45] LABS: CHLORIDE 106 mmol/L (98-107); SODIUM 141 mmol/L (136-145)
[2024-04-28 08:47] LABS: POTASSIUM 2.8 mmol/L (3.5-5.1)
[2024-04-28 08:50] LABS: CALCIUM 8.3 mg/dL (8.5-10.1)
[2024-04-28 08:51] LABS: ANION GAP 7 mmol/L (4-13); CO2 28 mmol/L (21-32); GLUCOSE,RANDOM 98 mg/dL (74-106); MAGNESIUM 1.8 mg/dL (1.8-2.4)
[2024-04-28 08:53] LABS: CREATININE < 0.2 mg/dL (0.55-1.3)
[2024-04-28 08:54] LABS: PHOSPHOROUS 1.9 mg/dL (2.5-4.9)
[2024-04-28 09:03] LABS: ANISOCYTOSIS 0; MACROCYTOSIS 0
[2024-04-28] MEDS: KCL 10 MEQ IVPB 10 MEQ/100 ML INFUS.BAG IVPB SCH (10:56)
[2024-04-28] MEDS: HEPARIN NA (PORCINE) 5,000 UNITS/ML 1ML VIAL SQ SCH (21:25)
[2024-04-29 07:23] LABS: HEMATOCRIT 33.1 % (35.4-49); HEMOGLOBIN 11.2 GM/dL (11.7-16.9); MCHC 33.9 g/dl (32.0-35.9); MEAN CELL VOLUME 88.5 fl (80-96); MEAN PLT VOLUME 7.9 fl (7.5-11.1); PLATELET COUNT 204 10^3/uL (134-434); RBC 3.74 M/mm3 (4.00-5.60); RDW 18.2 % (11.9-15.9); WHITE BLOOD COUNT 8.7 K/mm3 (4.0-10.0)
[2024-04-29 07:44] LABS: CHLORIDE 109 mmol/L (98-107); SODIUM 143 mmol/L (136-145)
[2024-04-29 07:53] LABS: ALBUMIN 1.4 g/dl (3.4-5.0); CALCIUM 8.2 mg/dL (8.5-10.1); CO2 28 mmol/L (21-32)
[2024-04-29 07:54] LABS: GLUCOSE,RANDOM 93 mg/dL (74-106)
[2024-04-29 07:55] LABS: BILIRUBIN,TOTAL 0.3 mg/dL (0.2-1)
[2024-04-29 07:57] LABS: ALK PHOS 58 U/L (45-117); CREATININE < 0.2 mg/dL (0.55-1.3); SGOT/AST 71 U/L (15-37); SGPT/ALT 35 U/L (13-61)
[2024-04-29 07:58] LABS: ANION GAP 5 mmol/L (4-13); POTASSIUM 2.7 mmol/L (3.5-5.1)
[2024-04-29] MEDS: KCL 10 MEQ IVPB 10 MEQ/100 ML INFUS.BAG IVPB SCH (08:57)
[2024-04-29] MEDS: AMINO ACIDS 4.25%/D5W 1,000 ML IV SCH (08:57)
[2024-04-29] MEDS: POTASSIUM CHLORIDE ORAL LIQUID 20 MEQ/15 ML PEG ONE ×2 (09:24→18:35)
[2024-04-29 15:27] LABS: POTASSIUM 3.5 mmol/L (3.5-5.1)
[2024-04-29 15:28] LABS: CALCIUM 8.3 mg/dL (8.5-10.1)
[2024-04-29 15:29] LABS: BLOOD UREA NITROGEN 17.4 mg/dL (7-18)
[2024-04-29 15:32] LABS: CREATININE 0.2 mg/dL (0.55-1.3)
[2024-04-29] MEDS: VANCOMYCIN/WATER FOR INJ (PEG) 1,000 MG/200 ML BAG IVPB SCH (16:56)
[2024-04-29] MEDS: MAGNESIUM SULF 50% (8.12 MEQ/2 ML-1 GM VIAL) IVPB ONE (18:36)
[2024-04-30 06:30] LABS: HEMATOCRIT 28.6 % (35.4-49); HEMOGLOBIN 9.5 GM/dL (11.7-16.9); MCH 29.9 pg (25.7-33.7); MCHC 33.2 g/dl (32.0-35.9); MEAN CELL VOLUME 90.2 fl (80-96); MEAN PLT VOLUME 7.2 fl (7.5-11.1); PLATELET COUNT 259 10^3/uL (134-434); RBC 3.18 M/mm3 (4.00-5.60); RDW 18.9 % (11.9-15.9); WHITE BLOOD COUNT 8.8 K/mm3 (4.0-10.0)
[2024-04-30 06:50] LABS: CHLORIDE 110 mmol/L (98-107); POTASSIUM 3.4 mmol/L (3.5-5.1); SODIUM 142 mmol/L (136-145)
[2024-04-30 06:53] LABS: ALBUMIN 1.4 g/dl (3.4-5.0); ANION GAP 4 mmol/L (4-13); BLOOD UREA NITROGEN 16.7 mg/dL (7-18); CALCIUM 7.9 mg/dL (8.5-10.1); CO2 28 mmol/L (21-32); GLUCOSE,RANDOM 103 mg/dL (74-106)
[2024-04-30 06:57] LABS: CREATININE < 0.2 mg/dL (0.55-1.3); SGOT/AST 57 U/L (15-37); SGPT/ALT 29 U/L (13-61)
[2024-04-30 06:59] LABS: BILIRUBIN,TOTAL 0.3 mg/dL (0.2-1); TOT PROT 4.7 g/dl (6.4-8.2)
[2024-04-30 07:00] LABS: ALK PHOS 55 U/L (45-117)
[2024-04-30] MEDS: KCL 10 MEQ IVPB 10 MEQ/100 ML INFUS.BAG IVPB SCH (09:31)
[2024-04-30] MEDS: levETIRAcetam 500 MG/5 ML INJECTION VIAL IVPB SCH (21:13)
[2024-04-30] MEDS: VALPROATE SODIUM IVPB SCH (21:14)
[2024-04-30] MEDS: SODIUM CHLORIDE IVPB SCH (21:14)
[2024-04-30] MEDS ORDERED: VALPROATE SODIUM 500 MG/5 ML VIAL IVPB SCH (22:00)
[2024-05-01] MEDS: Lacosamide 200 MG/20 ML VIAL IVPB SCH (09:59)
[2024-05-01] MEDS: POTASSIUM CHLORIDE 40 MEQ in AMINO ACIDS 4.25%/D5W 1,000 ML IV SCH (17:17)
[2024-05-01 17:36] LABS: BF GLUCOSE (CSF ONLY) 59 mg/dL (40-70)
[2024-05-01 18:07] LABS: CSF APPEARANCE CLEAR (CLEAR); CSF COLOR COLORLESS (COLORLESS)
[2024-05-01] MEDS: FAT EMULSION/OLIVE/SOY/PHOSPHO 250 ML IV SCH (21:50)
[2024-05-01] MEDS ORDERED: FAT EMULSION/OLIVE/SOY (CLINOLIPID) 250 ML EMULSION IV SCH (22:00)
[2024-05-02 07:46] LABS: HEMATOCRIT 29.2 % (35.4-49); HEMOGLOBIN 9.7 GM/dL (11.7-16.9); MCH 30.1 pg (25.7-33.7); MCHC 33.2 g/dl (32.0-35.9); MEAN CELL VOLUME 90.7 fl (80-96); MEAN PLT VOLUME 7.7 fl (7.5-11.1); PLATELET COUNT 360 10^3/uL (134-434); RBC 3.22 M/mm3 (4.00-5.60); RDW 18.4 % (11.9-15.9); WHITE BLOOD COUNT 8.7 K/mm3 (4.0-10.0)
[2024-05-02 08:03] LABS: CHLORIDE 110 mmol/L (98-107); POTASSIUM 3.6 mmol/L (3.5-5.1); SODIUM 144 mmol/L (136-145)
[2024-05-02 08:07] LABS: ALBUMIN 1.4 g/dl (3.4-5.0); ANION GAP 8 mmol/L (4-13); BLOOD UREA NITROGEN 15.5 mg/dL (7-18); CALCIUM 8.2 mg/dL (8.5-10.1); CO2 26 mmol/L (21-32); GLUCOSE,RANDOM 116 mg/dL (74-106)
[2024-05-02 08:10] LABS: MAGNESIUM 1.8 mg/dL (1.8-2.4); SGOT/AST 53 U/L (15-37); SGPT/ALT 21 U/L (13-61)
[2024-05-02 08:12] LABS: BILIRUBIN,TOTAL 0.3 mg/dL (0.2-1)
[2024-05-02 08:14] LABS: ALK PHOS 65 U/L (45-117)
[2024-05-02 08:19] LABS: CREATININE < 0.2 mg/dL (0.55-1.3)
[2024-05-02 09:15] LABS: CSF WBC 4 mm3 (0-5)
[2024-05-02] MEDS: FUROSEMIDE 40 MG/4 ML INJECTABLE VIAL IVPUSH ONE (12:15)
[2024-05-02] MEDS: MULTIVIT INJ. ADULT COMBO WITH VIT K 1 COMBO 10 ML VIAL IV SCH (16:21)
[2024-05-03] MEDS: AMINO ACIDS 4.25%/D5W 1,000 ML IV SCH (03:38)
[2024-05-03 06:52] LABS: HEMATOCRIT 32.9 % (35.4-49); HEMOGLOBIN 10.9 GM/dL (11.7-16.9); MCH 30.1 pg (25.7-33.7); MCHC 33.1 g/dl (32.0-35.9); MEAN CELL VOLUME 91.2 fl (80-96); MEAN PLT VOLUME 7.2 fl (7.5-11.1); PLATELET COUNT 368 10^3/uL (134-434); RBC 3.61 M/mm3 (4.00-5.60); RDW 18.9 % (11.9-15.9); WHITE BLOOD COUNT 9.7 K/mm3 (4.0-10.0)
[2024-05-03 07:12] LABS: CHLORIDE 106 mmol/L (98-107); POTASSIUM 3.6 mmol/L (3.5-5.1); SODIUM 142 mmol/L (136-145)
[2024-05-03 07:14] LABS: CALCIUM 8.5 mg/dL (8.5-10.1)
[2024-05-03 07:15] LABS: ALBUMIN 1.4 g/dl (3.4-5.0); ANION GAP 5 mmol/L (4-13); BLOOD UREA NITROGEN 14.7 mg/dL (7-18); CO2 30 mmol/L (21-32); GLUCOSE,RANDOM 114 mg/dL (74-106)
[2024-05-03 07:18] LABS: CREATININE < 0.2 mg/dL (0.55-1.3); SGOT/AST 62 U/L (15-37); SGPT/ALT 20 U/L (13-61)
[2024-05-03 07:19] LABS: BILIRUBIN,TOTAL 0.3 mg/dL (0.2-1); TOT PROT 5.3 g/dl (6.4-8.2)
[2024-05-03 07:21] LABS: ALK PHOS 64 U/L (45-117)
[2024-05-03] MEDS: FUROSEMIDE 40 MG/4 ML INJECTABLE VIAL IVPUSH ONE (08:43)
[2024-05-03] MEDS: POTASSIUM CHLORIDE 40 MEQ in AMINO ACIDS 4.25%/D5W 1,000 ML IV SCH (11:30)
[2024-05-03] MEDS: methylPREDNISolone NA SUCC 40 MG/1 ML VIAL IVPUSH SCH (11:44)
[2024-05-03] MEDS: PIPERACILLIN/TAZOB 4.5 GM 4.5 GM in DEXTROSE 5%-WATER 100 ML IVPB SCH (12:13)
[2024-05-04 09:12] LABS: HEMATOCRIT 30.9 % (35.4-49); HEMOGLOBIN 10.3 GM/dL (11.7-16.9); MCH 30.2 pg (25.7-33.7); MCHC 33.3 g/dl (32.0-35.9); MEAN CELL VOLUME 90.7 fl (80-96); MEAN PLT VOLUME 7.1 fl (7.5-11.1); PLATELET COUNT 352 10^3/uL (134-434); RDW 18.4 % (11.9-15.9); WHITE BLOOD COUNT 10.5 K/mm3 (4.0-10.0)
[2024-05-04 09:19] LABS: CHLORIDE 105 mmol/L (98-107); POTASSIUM 3.5 mmol/L (3.5-5.1); SODIUM 140 mmol/L (136-145)
[2024-05-04 09:21] LABS: ALBUMIN 1.4 g/dl (3.4-5.0); ANION GAP 8 mmol/L (4-13); BLOOD UREA NITROGEN 20.8 mg/dL (7-18); CALCIUM 8.6 mg/dL (8.5-10.1); CO2 28 mmol/L (21-32); MAGNESIUM 1.7 mg/dL (1.8-2.4)
[2024-05-04 09:22] LABS: GLUCOSE,RANDOM 100 mg/dL (74-106)
[2024-05-04 09:24] LABS: SGPT/ALT 16 U/L (13-61)
[2024-05-04 09:25] LABS: CREATININE < 0.2 mg/dL (0.55-1.3); SGOT/AST 54 U/L (15-37)
[2024-05-04 09:26] LABS: BILIRUBIN,TOTAL 0.4 mg/dL (0.2-1); TOT PROT 5.2 g/dl (6.4-8.2)
[2024-05-04 09:27] LABS: ALK PHOS 61 U/L (45-117)
[2024-05-04 10:12] LABS: ANISOCYTOSIS 0; HELMET CELLS 0; HOWELL-JOLLY BODIES 0; MACROCYTOSIS 0; OVALOCYTE 0; ROULEAU 0; SICKELED CELLS 0; TARGET CELLS 0; TEAR DROP CELLS 0; TOXIC GRANULATION 0
[2024-05-04] MEDS: MAGNESIUM SULF 50% (8.12 MEQ/2 ML-1 GM VIAL) IVPB ONE (12:00)
[2024-05-04] MEDS: NAPH,MB-DB/K PH,MBDB POWDER PACKET PO ONE (12:00)
[2024-05-06 07:57] LABS: HEMATOCRIT 31.6 % (35.4-49); HEMOGLOBIN 10.4 GM/dL (11.7-16.9); PLATELET COUNT 421 10^3/uL (134-434); RBC 3.47 M/mm3 (4.00-5.60); RDW 18.3 % (11.9-15.9); WHITE BLOOD COUNT 12.2 K/mm3 (4.0-10.0)
[2024-05-06 08:10] LABS: CHLORIDE 106 mmol/L (98-107); POTASSIUM 4.3 mmol/L (3.5-5.1); SODIUM 139 mmol/L (136-145)
[2024-05-06 08:12] LABS: ALBUMIN 1.5 g/dl (3.4-5.0); ANION GAP 5 mmol/L (4-13); CALCIUM 8.5 mg/dL (8.5-10.1); CO2 29 mmol/L (21-32); GLUCOSE,RANDOM 92 mg/dL (74-106)
[2024-05-06 08:15] LABS: SGOT/AST 68 U/L (15-37); SGPT/ALT 20 U/L (13-61)
[2024-05-06 08:17] LABS: BILIRUBIN,TOTAL 0.2 mg/dL (0.2-1); TOT PROT 5.3 g/dl (6.4-8.2)
[2024-05-06 08:18] LABS: ALK PHOS 62 U/L (45-117)
[2024-05-06 08:59] LABS: CREATININE < 0.2 mg/dL (0.55-1.3)
[2024-05-06] MEDS: LORazepam 2 MG/ML SDV VIAL IVPUSH PRN (12:10)
[2024-05-06] MEDS: THIAMINE HCL 200 MG/2 ML VIAL IVPB SCH (16:05)
[2024-05-07 08:04] LABS: HEMATOCRIT 33.3 % (35.4-49); HEMOGLOBIN 10.9 GM/dL (11.7-16.9); MCH 30.1 pg (25.7-33.7); MCHC 32.7 g/dl (32.0-35.9); MEAN PLT VOLUME 7.7 fl (7.5-11.1); PLATELET COUNT 273 10^3/uL (134-434); RBC 3.62 M/mm3 (4.00-5.60); RDW 19.2 % (11.9-15.9); WHITE BLOOD COUNT 13.5 K/mm3 (4.0-10.0)
[2024-05-07 08:12] LABS: CHLORIDE 107 mmol/L (98-107); POTASSIUM 4.4 mmol/L (3.5-5.1); SODIUM 139 mmol/L (136-145)
[2024-05-07 08:14] LABS: CALCIUM 8.9 mg/dL (8.5-10.1)
[2024-05-07 08:15] LABS: ALBUMIN 1.6 g/dl (3.4-5.0); ANION GAP 3 mmol/L (4-13); BLOOD UREA NITROGEN 20.4 mg/dL (7-18); CO2 29 mmol/L (21-32); GLUCOSE,RANDOM 87 mg/dL (74-106)
[2024-05-07 08:18] LABS: CREATININE < 0.2 mg/dL (0.55-1.3); SGOT/AST 65 U/L (15-37); SGPT/ALT 21 U/L (13-61)
[2024-05-07 08:19] LABS: BILIRUBIN,TOTAL 0.2 mg/dL (0.2-1)
[2024-05-07 08:20] LABS: TOT PROT 5.2 g/dl (6.4-8.2)
[2024-05-07 08:21] LABS: ALK PHOS 57 U/L (45-117)
[2024-05-07] MEDS: levETIRAcetam 500 MG/5 ML INJECTION VIAL IVPB SCH (22:02)
[2024-05-08 06:39] LABS: HEMATOCRIT 38.9 % (35.4-49); HEMOGLOBIN 12.6 GM/dL (11.7-16.9); MCHC 32.5 g/dl (32.0-35.9); MEAN CELL VOLUME 92.4 fl (80-96); MEAN PLT VOLUME 7.5 fl (7.5-11.1); PLATELET COUNT 240 10^3/uL (134-434); RBC 4.21 M/mm3 (4.00-5.60); RDW 19.2 % (11.9-15.9); WHITE BLOOD COUNT 17.6 K/mm3 (4.0-10.0)
[2024-05-08 07:02] LABS: CHLORIDE 106 mmol/L (98-107); POTASSIUM 4.5 mmol/L (3.5-5.1); SODIUM 141 mmol/L (136-145)
[2024-05-08 07:04] LABS: CALCIUM 9.1 mg/dL (8.5-10.1)
[2024-05-08 07:05] LABS: ALBUMIN 1.9 g/dl (3.4-5.0); ANION GAP 8 mmol/L (4-13); BLOOD UREA NITROGEN 21.1 mg/dL (7-18); CO2 27 mmol/L (21-32); GLUCOSE,RANDOM 87 mg/dL (74-106)
[2024-05-08 07:08] LABS: CREATININE < 0.2 mg/dL (0.55-1.3); SGOT/AST 81 U/L (15-37); SGPT/ALT 28 U/L (13-61)
[2024-05-08 07:09] LABS: BILIRUBIN,TOTAL 0.4 mg/dL (0.2-1); TOT PROT 5.8 g/dl (6.4-8.2)
[2024-05-08 07:11] LABS: ALK PHOS 68 U/L (45-117)
[2024-05-08] MEDS: levETIRAcetam 500 MG/5 ML INJECTION VIAL IVPB SCH (21:35)
[2024-05-08] MEDS: VALPROATE SODIUM IVPB SCH (21:57)
[2024-05-08] MEDS: SODIUM CHLORIDE IVPB SCH (21:57)
[2024-05-09 06:54] LABS: HEMATOCRIT 31.6 % (35.4-49); HEMOGLOBIN 10.2 GM/dL (11.7-16.9); MCH 30.3 pg (25.7-33.7); MCHC 32.4 g/dl (32.0-35.9); MEAN CELL VOLUME 93.5 fl (80-96); MEAN PLT VOLUME 7.3 fl (7.5-11.1); PLATELET COUNT 289 10^3/uL (134-434); RBC 3.38 M/mm3 (4.00-5.60); RDW 19.3 % (11.9-15.9); WHITE BLOOD COUNT 16.3 K/mm3 (4.0-10.0)
[2024-05-09 07:13] LABS: CHLORIDE 106 mmol/L (98-107); POTASSIUM 4.1 mmol/L (3.5-5.1); SODIUM 139 mmol/L (136-145)
[2024-05-09 07:21] LABS: ALBUMIN 1.7 g/dl (3.4-5.0); ANION GAP 5 mmol/L (4-13); BLOOD UREA NITROGEN 21.2 mg/dL (7-18); CALCIUM 8.6 mg/dL (8.5-10.1); CO2 29 mmol/L (21-32)
[2024-05-09 07:22] LABS: GLUCOSE,RANDOM 78 mg/dL (74-106)
[2024-05-09 07:23] LABS: SGOT/AST 60 U/L (15-37); SGPT/ALT 26 U/L (13-61)
[2024-05-09 07:24] LABS: BILIRUBIN,TOTAL 0.2 mg/dL (0.2-1); CREATININE < 0.2 mg/dL (0.55-1.3); TOT PROT 4.9 g/dl (6.4-8.2)
[2024-05-09 07:26] LABS: ALK PHOS 55 U/L (45-117)
[2024-05-10] MEDS: Lacosamide 200 MG/20 ML VIAL IVPB SCH (21:39)
[2024-05-10] MEDS: AMINO ACIDS 4.25%/D5W 1,000 ML IV SCH (21:39)
[2024-05-11] MEDS: FUROSEMIDE 40 MG/4 ML INJECTABLE VIAL IVPUSH ONE ×2 (14:28→17:11)
[2024-05-12] MEDS ORDERED: LORazepam 2 MG/ML SDV VIAL IVPUSH PRN (12:44)
[2024-05-12] MEDS: LORazepam 2 MG/ML SDV VIAL IVPUSH PRN (13:06)
[2024-05-13] MEDS: FUROSEMIDE 40 MG/4 ML INJECTABLE VIAL IVPUSH ONE ×2 (00:37→16:31)
[2024-05-13] MEDS: AMINO ACIDS 4.25%/D5W 1,000 ML IV SCH (12:09)
[2024-05-13] MEDS ORDERED: RAPID SEQUENCE INTUBATION KIT NR ONE (13:00)
[2024-05-13] MEDS ORDERED: ETOMIDATE 20 MG/10 ML VIAL IVPUSH ONE (18:04)
[2024-05-13] MEDS ORDERED: VASopressin 20 UNITS/ML VIAL IV ONE (18:28)
[2024-05-13] MEDS: PROPOFOL 1,000,000 MCG/100 ML VIAL IVPB SCH (19:15)
[2024-05-13 19:22] LABS: ALLENS TEST POSITIVE; ARTERIAL BLD GAS O2 SATURATION 70.5 % (95-98); ARTERIAL BLOOD GAS BASE EXCESS 6.9 mmol/L (-2-2); VENT MODE A/C; VENT RATE 14
[2024-05-13 19:23] LABS: ARTERIAL BLOOD GAS PO2 37.7 mmHg (80-100)
[2024-05-13] MEDS: NOREPINEPHRINE 0.9 % NACL 8 MG/250 ML BAG IVPB SCH (19:45)
[2024-05-13] MEDS ORDERED: TRIPLE LUMEN FLUSH 4 ML ML IVPUSH PRN (19:57)
[2024-05-13 20:45] LABS: ALLENS TEST POSITIVE; ARTERIAL BLD GAS O2 SATURATION 93.9 % (95-98); ARTERIAL BLOOD GAS BASE EXCESS 6.6 mmol/L (-2-2); ARTERIAL BLOOD GAS pH 7.431 (7.350-7.450)
[2024-05-13 20:46] LABS: VENT MODE A/C; VENT RATE 14
[2024-05-13 20:47] LABS: HEMATOCRIT 35.8 % (35.4-49); HEMOGLOBIN 11.7 GM/dL (11.7-16.9); MCH 29.9 pg (25.7-33.7); MCHC 32.6 g/dl (32.0-35.9); MEAN CELL VOLUME 91.5 fl (80-96); MEAN PLT VOLUME 7.3 fl (7.5-11.1); PLATELET COUNT 370 10^3/uL (134-434); RBC 3.91 M/mm3 (4.00-5.60); RDW 19.5 % (11.9-15.9)
[2024-05-13 20:51] LABS: ADD RBC MORPHOLOGY YES
[2024-05-13] MEDS: HYDROCORTISONE SOD SUCCINATE 100 MG/2 ML VIAL IVPB SCH (20:51)
[2024-05-13] MEDS: VANCOMYCIN/WATER 1250 MG 1,250 MG/250 ML BAG IVPB ONE (20:51)
[2024-05-13] MEDS: PIPERACILLIN/TAZOB 3.375 GM 3.375 GM in DEXTROSE 5%-WATER - 50 ML IVPB SCH (20:51)
[2024-05-13 20:53] LABS: WHITE BLOOD COUNT 34.6 K/mm3 (4.0-10.0)
[2024-05-13 21:08] LABS: CHLORIDE 106 mmol/L (98-107); SODIUM 146 mmol/L (136-145)
[2024-05-13 21:09] LABS: CALCIUM 8.8 mg/dL (8.5-10.1)
[2024-05-13 21:10] LABS: ALBUMIN 1.9 g/dl (3.4-5.0); BLOOD UREA NITROGEN 25.3 mg/dL (7-18); CO2 33 mmol/L (21-32); GLUCOSE,RANDOM 164 mg/dL (74-106); MAGNESIUM 1.8 mg/dL (1.8-2.4)
[2024-05-13 21:13] LABS: CREATININE 0.2 mg/dL (0.55-1.3); PHOSPHOROUS 2.6 mg/dL (2.5-4.9); SGOT/AST 44 U/L (15-37); SGPT/ALT 23 U/L (13-61)
[2024-05-13 21:14] LABS: ANION GAP 7 mmol/L (4-13); POTASSIUM 2.6 mmol/L (3.5-5.1)
[2024-05-13 21:15] LABS: BILIRUBIN,TOTAL 0.4 mg/dL (0.2-1); TOT PROT 5.6 g/dl (6.4-8.2)
[2024-05-13 21:16] LABS: ALK PHOS 67 U/L (45-117)
[2024-05-13] MEDS: KCL 10 MEQ IVPB 10 MEQ/100 ML INFUS.BAG IVPB SCH (21:35)
[2024-05-13] MEDS: MUPIROCIN 2% TOPICAL OINTMENT FOR DECOLONIZATION NS SCH (21:36)
[2024-05-13] MEDS: CHLORHEXIDINE GLUCONATE 4% CLEANSER FOR DECOLONIZATION TP SCH (21:36)
[2024-05-13] MEDS: levETIRAcetam 500 MG/5 ML INJECTION VIAL IVPB SCH (21:36)
[2024-05-13] MEDS: Lacosamide 200 MG/20 ML VIAL IVPB SCH (21:36)
[2024-05-13] MEDS: VALPROATE SODIUM IVPB SCH (21:37)
[2024-05-13] MEDS: SODIUM CHLORIDE IVPB SCH (21:37)
[2024-05-13 21:56] LABS: ANISOCYTOSIS 2+; MACROCYTOSIS 0
[2024-05-13] MEDS ORDERED: VALPROATE SODIUM IVPB SCH (22:00)
[2024-05-13] MEDS ORDERED: SODIUM CHLORIDE IVPB SCH (22:00)
[2024-05-13] MEDS: MAGNESIUM SULFATE IN WATER 2 GM/50 ML IVPB IVPB ONE (23:53)
[2024-05-14] MEDS: SODIUM CHLORIDE 1,000 ML IV STA (01:41)
[2024-05-14] MEDS: INSULIN ASPART SLIDING SCALE (NOVOLOG) 1 VIAL SQ SCH (06:29)
[2024-05-14] MEDS: AMINO ACIDS 4.25%/D5W 1,000 ML IV SCH (06:29)
[2024-05-14 06:41] LABS: ARTERIAL BLD GAS O2 SATURATION 97.8 % (95-98); ARTERIAL BLOOD GAS BASE EXCESS 5.1 mmol/L (-2-2); ARTERIAL BLOOD GAS PO2 99.7 mmHg (80-100); ARTERIAL BLOOD GAS pH 7.463 (7.350-7.450)
[2024-05-14 06:52] LABS: ALLENS TEST POSITIVE; VENT MODE A/C; VENT RATE 14
[2024-05-14 07:37] LABS: HEMOGLOBIN 11.3 GM/dL (11.7-16.9); MCH 30.1 pg (25.7-33.7); MCHC 32.1 g/dl (32.0-35.9); MEAN CELL VOLUME 93.7 fl (80-96); PLATELET COUNT 257 10^3/uL (134-434); RBC 3.74 M/mm3 (4.00-5.60); RDW 19.6 % (11.9-15.9); WHITE BLOOD COUNT 29.9 K/mm3 (4.0-10.0)
[2024-05-14 07:45] LABS: MAGNESIUM 2.3 mg/dL (1.8-2.4)
[2024-05-14 07:48] LABS: PHOSPHOROUS 2.3 mg/dL (2.5-4.9)
[2024-05-14 08:01] LABS: ALBUMIN 1.9 g/dl (3.4-5.0); ALK PHOS 63 U/L (45-117); ANION GAP 9 mmol/L (4-13); BILIRUBIN,TOTAL 0.3 mg/dL (0.2-1); BLOOD UREA NITROGEN 25.9 mg/dL (7-18); CHLORIDE 107 mmol/L (98-107); CO2 29 mmol/L (21-32); CREATININE < 0.2 mg/dL (0.55-1.3); GLUCOSE,RANDOM 140 mg/dL (74-106); POTASSIUM 3.4 mmol/L (3.5-5.1); SGOT/AST 48 U/L (15-37); SGPT/ALT 20 U/L (13-61); SODIUM 145 mmol/L (136-145); TOT PROT 5.4 g/dl (6.4-8.2)
[2024-05-14] MEDS ORDERED: POTASSIUM CHLORIDE ORAL LIQUID 20 MEQ/15 ML GT ONE (08:15)
[2024-05-14 08:57] LABS: INR 1.21 (0.83-1.09); PROTHROMBIN TIME (PATIENT) 13.6 SEC (9.7-13.0)
[2024-05-14 10:21] LABS: ANISOCYTOSIS 0; MACROCYTOSIS 0
[2024-05-14] MEDS: POTASSIUM CHLORIDE ORAL LIQUID 20 MEQ/15 ML GT ONE (10:56)
[2024-05-14] MEDS: PANTOPRAZOLE SODIUM 40 MG VIAL IVPUSH SCH (10:58)
[2024-05-14] MEDS: ASCORBIC ACID 500 MG TABLET (FP) PO SCH (10:58)
[2024-05-14] MEDS: COLLAGENASE CLOSTRIDIUM HIST. 30 GRAMS TUBE TP SCH (10:59)
[2024-05-14] MEDS: MINERAL OIL/PET HY-PHL TOPICAL OINTMENT 454 GM JAR TP SCH (10:59)
[2024-05-14] MEDS: MULTIVIT INJ. ADULT COMBO WITH VIT K 1 COMBO 10 ML VIAL IV SCH (11:55)
[2024-05-14] MEDS: methylPREDNISolone NA SUCC 40 MG/1 ML VIAL IVPUSH SCH (14:29)
[2024-05-14] MEDS: ENOXAPARIN NA (PORCINE) 40 MG/0.4 ML DISP.SYRIN SQ SCH (16:24)
[2024-05-14] MEDS: SCOPOLAMINE HYDROBROMIDE 1 PATCH PATCH.TD72 TD SCH (17:33)
[2024-05-14] MEDS: AMINO ACIDS/PROTEIN HYDROLYS 30 ML LIQUID.PKT PO SCH (17:34)
[2024-05-15 00:48] LABS: ARTERIAL BLD GAS O2 SATURATION 94.1 % (95-98); ARTERIAL BLOOD GAS BASE EXCESS 7.4 mmol/L (-2-2); ARTERIAL BLOOD GAS pH 7.516 (7.350-7.450)
[2024-05-15 01:17] LABS: POTASSIUM 3.4 mmol/L (3.5-5.1)
[2024-05-15 01:19] LABS: ALBUMIN 1.8 g/dl (3.4-5.0); BLOOD UREA NITROGEN 27.8 mg/dL (7-18); CALCIUM 8.9 mg/dL (8.5-10.1); MAGNESIUM 2.1 mg/dL (1.8-2.4)
[2024-05-15 01:22] LABS: CREATININE 0.2 mg/dL (0.55-1.3); PHOSPHOROUS 1.7 mg/dL (2.5-4.9)
[2024-05-15 01:24] LABS: BILIRUBIN,TOTAL 0.4 mg/dL (0.2-1); TOT PROT 5.2 g/dl (6.4-8.2)
[2024-05-15 06:01] LABS: ARTERIAL BLD GAS O2 SATURATION 98.9 % (95-98); ARTERIAL BLOOD GAS BASE EXCESS 7.7 mmol/L (-2-2); ARTERIAL BLOOD GAS pH 7.534 (7.350-7.450)
[2024-05-15 06:05] LABS: VENT MODE AC; VENT RATE 14
[2024-05-15 06:55] LABS: HEMATOCRIT 32.6 % (35.4-49); HEMOGLOBIN 10.5 GM/dL (11.7-16.9); MCH 29.8 pg (25.7-33.7); MCHC 32.1 g/dl (32.0-35.9); MEAN CELL VOLUME 92.9 fl (80-96); MEAN PLT VOLUME 8.2 fl (7.5-11.1); PLATELET COUNT 271 10^3/uL (134-434); RBC 3.51 M/mm3 (4.00-5.60); WHITE BLOOD COUNT 29.2 K/mm3 (4.0-10.0)
[2024-05-15] MEDS: ATROPINE SULFATE 1 MG/10 ML DISP.SYRIN IVPUSH ONE (06:59)
[2024-05-15 07:17] LABS: MAGNESIUM 2.2 mg/dL (1.8-2.4)
[2024-05-15 07:20] LABS: PHOSPHOROUS 1.7 mg/dL (2.5-4.9)
[2024-05-15 08:41] LABS: ANISOCYTOSIS 1+
[2024-05-15] MEDS: NAPH,MB-DB/K PH,MBDB POWDER PACKET GT ONE (13:58)
[2024-05-15] MEDS: Lacosamide 50 MG/5 ML ORAL SOLUTION UNIT CUPS GT SCH (15:20)
[2024-05-16 07:08] LABS: HEMATOCRIT 32.3 % (35.4-49); HEMOGLOBIN 10.3 GM/dL (11.7-16.9); MCH 30.2 pg (25.7-33.7); MEAN CELL VOLUME 94.3 fl (80-96); PLATELET COUNT 168 10^3/uL (134-434); RBC 3.42 M/mm3 (4.00-5.60); RDW 19.8 % (11.9-15.9); WHITE BLOOD COUNT 16.8 K/mm3 (4.0-10.0)
[2024-05-16] MEDS: Lacosamide 50 MG/5 ML ORAL SOLUTION UNIT CUPS GT SCH (07:22)
[2024-05-16 07:25] LABS: POTASSIUM 3.2 mmol/L (3.5-5.1)
[2024-05-16 07:27] LABS: CALCIUM 8.9 mg/dL (8.5-10.1)
[2024-05-16 07:28] LABS: ALBUMIN 1.8 g/dl (3.4-5.0); BLOOD UREA NITROGEN 24.6 mg/dL (7-18); MAGNESIUM 2.3 mg/dL (1.8-2.4)
[2024-05-16 07:31] LABS: CREATININE 0.2 mg/dL (0.55-1.3); PHOSPHOROUS 2.1 mg/dL (2.5-4.9)
[2024-05-16 07:32] LABS: BILIRUBIN,TOTAL 0.2 mg/dL (0.2-1); TOT PROT 5.1 g/dl (6.4-8.2)
[2024-05-16 08:31] LABS: ANISOCYTOSIS 1+; MACROCYTOSIS 0
[2024-05-16] MEDS: POTASSIUM CHLORIDE ORAL LIQUID 20 MEQ/15 ML GT ONE (10:57)
[2024-05-16] MEDS: NAPH,MB-DB/K PH,MBDB POWDER PACKET GT ONE (10:57)
[2024-05-16] MEDS: LORazepam 2 MG/ML SDV VIAL IVPUSH ONE (15:31)
[2024-05-16] MEDS ORDERED: MIDAZOLAM HCL 2 MG/2 ML SINGLE DOSE VIAL ONE ×2 (15:31→21:53)
[2024-05-16] MEDS: MIDAZOLAM HCL 2 MG/2 ML SINGLE DOSE VIAL IVPUSH ONE ×2 (15:46→22:38)
[2024-05-16 20:07] LABS: POTASSIUM 3.4 mmol/L (3.5-5.1)
[2024-05-16 20:09] LABS: BLOOD UREA NITROGEN 25.6 mg/dL (7-18)
[2024-05-16 20:12] LABS: CREATININE 0.2 mg/dL (0.55-1.3)
[2024-05-16] MEDS: methylPREDNISolone NA SUCC 40 MG/1 ML VIAL IVPUSH SCH (21:37)
[2024-05-16] MEDS ORDERED: MIDAZOLAM HCL 5 MG/1 ML Single Dose Vial IVPUSH ONE (22:04)
[2024-05-17] MEDS: VASopressin 40 UNITS/100 ML BAG IV SCH (03:00)
[2024-05-17] MEDS ORDERED: VASopressin 20 UNITS/ML VIAL IV ONE (03:04)
[2024-05-17 06:13] LABS: HEMATOCRIT 35.9 % (35.4-49); HEMOGLOBIN 11.1 GM/dL (11.7-16.9); MCH 29.7 pg (25.7-33.7); MEAN CELL VOLUME 95.8 fl (80-96); MEAN PLT VOLUME 8.1 fl (7.5-11.1); PLATELET COUNT 233 10^3/uL (134-434); RBC 3.75 M/mm3 (4.00-5.60); RDW 20.6 % (11.9-15.9)
[2024-05-17 06:31] LABS: POTASSIUM 3.4 mmol/L (3.5-5.1)
[2024-05-17 06:35] LABS: ALBUMIN 1.6 g/dl (3.4-5.0); BLOOD UREA NITROGEN 34.1 mg/dL (7-18); CALCIUM 8.8 mg/dL (8.5-10.1)
[2024-05-17 06:36] LABS: MAGNESIUM 2.1 mg/dL (1.8-2.4)
[2024-05-17 06:38] LABS: CREATININE 0.6 mg/dL (0.55-1.3); PHOSPHOROUS 3.8 mg/dL (2.5-4.9)
[2024-05-17 06:40] LABS: BILIRUBIN,TOTAL 0.7 mg/dL (0.2-1); TOT PROT 4.9 g/dl (6.4-8.2)
[2024-05-17] MEDS: POTASSIUM CHLORIDE ORAL LIQUID 20 MEQ/15 ML GT ONE (09:06)
[2024-05-17] MEDS: CASPOFUNGIN ACETATE 70 MG in SODIUM CHLORIDE 250 ML IVPB ONE (12:10)
[2024-05-17] MEDS ORDERED: PROPOFOL 1,000,000 MCG/100 ML VIAL ONE (13:23)
[2024-05-17] MEDS: VANCOMYCIN/WATER 1250 MG 1,250 MG/250 ML BAG IVPB SCH (14:29)
[2024-05-17] MEDS: PIPERACILLIN/TAZOB 4.5 GM 4.5 GM in DEXTROSE 5%-WATER 100 ML IVPB SCH (15:31)
[2024-05-17] MEDS: ACETAMINOPHEN 1000 MG/100 ML BAG IVPB PRN (15:31)
[2024-05-17] MEDS: PROPOFOL 1,000,000 MCG/100 ML VIAL IVPB SCH (19:26)
[2024-05-18 07:29] LABS: HEMATOCRIT 35.5 % (35.4-49); HEMOGLOBIN 11.2 GM/dL (11.7-16.9); MCH 30.2 pg (25.7-33.7); MCHC 31.5 g/dl (32.0-35.9); PLATELET COUNT 158 10^3/uL (134-434); RDW 20.7 % (11.9-15.9)
[2024-05-18 07:38] LABS: CHLORIDE 117 mmol/L (98-107); SODIUM 153 mmol/L (136-145)
[2024-05-18 07:41] LABS: ALBUMIN 1.3 g/dl (3.4-5.0); CALCIUM 8.5 mg/dL (8.5-10.1)
[2024-05-18 07:42] LABS: BLOOD UREA NITROGEN 21.4 mg/dL (7-18); CO2 29 mmol/L (21-32); GLUCOSE,RANDOM 214 mg/dL (74-106); MAGNESIUM 2.2 mg/dL (1.8-2.4)
[2024-05-18 07:44] LABS: BILIRUBIN,DIRECT 0.1 mg/dL (0.0-0.2)
[2024-05-18 07:45] LABS: BILIRUBIN,TOTAL 0.3 mg/dL (0.2-1); CREATININE 0.3 mg/dL (0.55-1.3); PHOSPHOROUS 2.3 mg/dL (2.5-4.9); TOT PROT 4.3 g/dl (6.4-8.2)
[2024-05-18 07:50] LABS: ANION GAP 7 mmol/L (4-13); LACTIC ACID 3.9 mmol/L (0.4-2.0); POTASSIUM 2.8 mmol/L (3.5-5.1)
[2024-05-18 08:17] LABS: WHITE BLOOD COUNT 43.5 K/mm3 (4.0-10.0)
[2024-05-18 08:19] LABS: INR 1.38 (0.83-1.09); PROTHROMBIN TIME (PATIENT) 15.4 SEC (9.7-13.0)
[2024-05-18 08:22] LABS: ACTIVATED PTT 31.5 SECONDS (25.2-36.5)
[2024-05-18] MEDS: POTASSIUM CHLORIDE ORAL LIQUID 20 MEQ/15 ML GT ONE (09:39)
[2024-05-18] MEDS: KCL 20 MEQ PREMIX BAG 20 MEQ/100 ML INFUS.BAG IVPB SCH (09:48)
[2024-05-18] MEDS: KCL 10 MEQ IVPB 10 MEQ/100 ML INFUS.BAG IVPB SCH (10:13)
[2024-05-18] MEDS: CEFTAZIDIME/AVIBACTAM 2.5 GM in DEXTROSE 5%-WATER - 250 ML IVPB SCH (11:58)
[2024-05-18] MEDS ORDERED: FENTANYL NS IVPB 500 MCG/100 ML BAG IVPB ONE (12:50)
[2024-05-18] MEDS: FENTANYL NS IVPB 500 MCG/100 ML BAG IVPB SCH (13:07)
[2024-05-18] MEDS: CASPOFUNGIN ACETATE 50 MG in SODIUM CHLORIDE 250 ML IVPB SCH (13:57)
[2024-05-18 14:52] LABS: ARTERIAL BLD GAS O2 SATURATION 94.1 % (95-98); ARTERIAL BLOOD GAS BASE EXCESS 2.2 mmol/L (-2-2); ARTERIAL BLOOD GAS PO2 63.7 mmHg (80-100); ARTERIAL BLOOD GAS pH 7.489 (7.350-7.450)
[2024-05-18 14:55] LABS: VENT MODE A/C; VENT RATE 15
[2024-05-18] MEDS ORDERED: MIDAZOLAM IN 0.9 % SOD.CHLORID 1 MG/1 ML PLAST..BAG ONE (15:11)
[2024-05-18] MEDS: MIDAZOLAM IN 0.9 % SOD.CHLORID 100 MG/100 ML PLAST..BAG IVPB SCH (15:35)
[2024-05-18] MEDS: ALBUTEROL SO4 2.5/IPRATROPIUM 0.5 INH SOL 3 ML VIAL.NEB. NEB SCH (15:44)
[2024-05-18] MEDS ORDERED: fentaNYL CITRATE/PF 1,000 MCG/20 ML AMPUL IVPUSH PRN (19:50)
[2024-05-19 09:08] LABS: HEMATOCRIT 31.6 % (35.4-49); HEMOGLOBIN 9.9 GM/dL (11.7-16.9); MCHC 31.5 g/dl (32.0-35.9); MEAN CELL VOLUME 95.5 fl (80-96); MEAN PLT VOLUME 8.5 fl (7.5-11.1); PLATELET COUNT 125 10^3/uL (134-434); RDW 20.4 % (11.9-15.9)
[2024-05-19 09:18] LABS: WHITE BLOOD COUNT 35.3 K/mm3 (4.0-10.0)
[2024-05-19 09:47] LABS: CHLORIDE 117 mmol/L (98-107); SODIUM 150 mmol/L (136-145)
[2024-05-19 09:51] LABS: ALBUMIN 1.1 g/dl (3.4-5.0); BLOOD UREA NITROGEN 21.8 mg/dL (7-18); CALCIUM 8.1 mg/dL (8.5-10.1); CO2 29 mmol/L (21-32); GLUCOSE,RANDOM 200 mg/dL (74-106); MAGNESIUM 2.4 mg/dL (1.8-2.4)
[2024-05-19 09:54] LABS: CREATININE 0.3 mg/dL (0.55-1.3); PHOSPHOROUS 1.6 mg/dL (2.5-4.9); SGPT/ALT 113 U/L (13-61)
[2024-05-19 09:55] LABS: ANION GAP 4 mmol/L (4-13); LACTIC ACID 2.7 mmol/L (0.4-2.0); POTASSIUM 2.8 mmol/L (3.5-5.1); SGOT/AST 95 U/L (15-37)
[2024-05-19 09:56] LABS: BILIRUBIN,TOTAL 0.4 mg/dL (0.2-1); TOT PROT 4.1 g/dl (6.4-8.2)
[2024-05-19 09:57] LABS: ALK PHOS 101 U/L (45-117)
[2024-05-19 10:31] LABS: ANISOCYTOSIS 2+; MACROCYTOSIS 0
[2024-05-19] MEDS: KCL 10 MEQ IVPB 10 MEQ/100 ML INFUS.BAG IVPB SCH ×3 (12:00→21:25)
[2024-05-19] MEDS: POTASSIUM CHLORIDE ORAL LIQUID 20 MEQ/15 ML GT ONE (12:15)
[2024-05-19] MEDS: NAPH,MB-DB/K PH,MBDB POWDER PACKET GT ONE (12:16)
[2024-05-19 20:59] LABS: POTASSIUM 3.3 mmol/L (3.5-5.1)
[2024-05-19 21:03] LABS: POTASSIUM 3.3 mmol/L (3.5-5.1)
[2024-05-19 21:04] LABS: PHOSPHOROUS 1.6 mg/dL (2.5-4.9)
[2024-05-19] MEDS: POTASSIUM CHLORIDE ORAL LIQUID 20 MEQ/15 ML PO ONE (23:25)
[2024-05-20 00:19] LABS: CALCIUM 8.2 mg/dL (8.5-10.1)
[2024-05-20 00:20] LABS: BLOOD UREA NITROGEN 21.9 mg/dL (7-18); MAGNESIUM 2.3 mg/dL (1.8-2.4)
[2024-05-20 00:23] LABS: CREATININE 0.3 mg/dL (0.55-1.3); PHOSPHOROUS 1.6 mg/dL (2.5-4.9)
[2024-05-20 00:24] LABS: BILIRUBIN,TOTAL 0.2 mg/dL (0.2-1); TOT PROT 3.8 g/dl (6.4-8.2)
[2024-05-20 06:55] LABS: HEMATOCRIT 29.4 % (35.4-49); HEMOGLOBIN 9.1 GM/dL (11.7-16.9); MCH 30.1 pg (25.7-33.7); MEAN PLT VOLUME 8.5 fl (7.5-11.1); PLATELET COUNT 96 10^3/uL (134-434); RBC 3.03 M/mm3 (4.00-5.60); RDW 20.3 % (11.9-15.9); WHITE BLOOD COUNT 28.4 K/mm3 (4.0-10.0)
[2024-05-20 09:15] LABS: ANISOCYTOSIS 2+; MACROCYTOSIS 0
[2024-05-20] MEDS: NAPH,MB-DB/K PH,MBDB POWDER PACKET GT ONE ×2 (09:17→18:46)
[2024-05-20] MEDS ORDERED: ALBUTEROL SO4 0.083% IH SOL 2.5 MG/3 ML VIAL.NEB. NEB SCH (14:00)
[2024-05-20] MEDS: ACETYLCYSTEINE 20% 200MG/ML 4 ML VIAL *FOR ORAL / INH USE ONLY NEB SCH (14:40)
[2024-05-20] MEDS: ALBUTEROL SO4 0.083% IH SOL 2.5 MG/3 ML VIAL.NEB. NEB SCH (14:40)
[2024-05-20 14:41] LABS: HIV INTERPRETATION NEGATIVE (NEGATIVE)
[2024-05-20 17:37] LABS: POTASSIUM 4.4 mmol/L (3.5-5.1)
[2024-05-20 17:38] LABS: CALCIUM 8.4 mg/dL (8.5-10.1)
[2024-05-20 17:39] LABS: ALBUMIN 0.9 g/dl (3.4-5.0); BLOOD UREA NITROGEN 23.3 mg/dL (7-18); MAGNESIUM 2.4 mg/dL (1.8-2.4)
[2024-05-20 17:42] LABS: CREATININE 0.2 mg/dL (0.55-1.3); PHOSPHOROUS 1.6 mg/dL (2.5-4.9)
[2024-05-20 17:43] LABS: BILIRUBIN,TOTAL 0.2 mg/dL (0.2-1)
[2024-05-20 17:44] LABS: TOT PROT 3.8 g/dl (6.4-8.2)
[2024-05-20] MEDS: MULTIVIT INJ. ADULT COMBO WITH VIT K 1 COMBO 10 ML VIAL IV SCH (18:24)
[2024-05-21 06:45] LABS: HEMATOCRIT 28.6 % (35.4-49); HEMOGLOBIN 8.7 GM/dL (11.7-16.9); MCH 29.8 pg (25.7-33.7); MCHC 30.5 g/dl (32.0-35.9); MEAN CELL VOLUME 97.6 fl (80-96); MEAN PLT VOLUME 9.4 fl (7.5-11.1); PLATELET COUNT 92 10^3/uL (134-434); RBC 2.92 M/mm3 (4.00-5.60); RDW 20.7 % (11.9-15.9); WHITE BLOOD COUNT 29.9 K/mm3 (4.0-10.0)
[2024-05-21 06:59] LABS: POTASSIUM 4.3 mmol/L (3.5-5.1)
[2024-05-21 07:01] LABS: ALBUMIN 0.9 g/dl (3.4-5.0); BLOOD UREA NITROGEN 23.7 mg/dL (7-18); MAGNESIUM 2.3 mg/dL (1.8-2.4)
[2024-05-21 07:04] LABS: CREATININE 0.2 mg/dL (0.55-1.3)
[2024-05-21 07:06] LABS: TOT PROT 3.8 g/dl (6.4-8.2)
[2024-05-21 07:37] LABS: BILIRUBIN,TOTAL 0.1 mg/dL (0.2-1)
[2024-05-21] MEDS: NAPH,MB-DB/K PH,MBDB POWDER PACKET PO ONE (10:20)
[2024-05-21 10:42] LABS: ANISOCYTOSIS 2+; MACROCYTOSIS 0
[2024-05-22] MEDS ORDERED: ROCURONIUM BROMIDE 50 MG/5 ML SYRINGE IV ONE (08:06)
[2024-05-22] MEDS ORDERED: ROCURONIUM BROMIDE 50 MG/5 ML VIAL IVPUSH ONE (08:09)
[2024-05-22 08:45] LABS: HEMATOCRIT 27.8 % (35.4-49); HEMOGLOBIN 8.5 GM/dL (11.7-16.9); MCH 29.9 pg (25.7-33.7); MCHC 30.7 g/dl (32.0-35.9); MEAN CELL VOLUME 97.3 fl (80-96); MEAN PLT VOLUME 9.4 fl (7.5-11.1); PLATELET COUNT 77 10^3/uL (134-434); RBC 2.86 M/mm3 (4.00-5.60); RDW 20.5 % (11.9-15.9); WHITE BLOOD COUNT 24.4 K/mm3 (4.0-10.0)
[2024-05-22 08:49] LABS: POTASSIUM 4.3 mmol/L (3.5-5.1)
[2024-05-22 08:55] LABS: ALBUMIN 0.9 g/dl (3.4-5.0); BLOOD UREA NITROGEN 24.9 mg/dL (7-18)
[2024-05-22 08:56] LABS: MAGNESIUM 2.3 mg/dL (1.8-2.4)
[2024-05-22 08:59] LABS: CREATININE 0.2 mg/dL (0.55-1.3); PHOSPHOROUS 1.8 mg/dL (2.5-4.9)
[2024-05-22 09:00] LABS: BILIRUBIN,TOTAL 0.6 mg/dL (0.2-1); TOT PROT 3.8 g/dl (6.4-8.2)
[2024-05-22] MEDS ORDERED: MIDAZOLAM HCL 5 MG/1 ML Single Dose Vial ONE (09:52)
[2024-05-22 10:02] LABS: ANISOCYTOSIS 3+; MACROCYTOSIS 0
[2024-05-22] MEDS: MIDAZOLAM HCL 5 MG/1 ML Single Dose Vial IVPUSH ONE (11:06)
[2024-05-22] MEDS: ROCURONIUM BROMIDE 50 MG/5 ML VIAL IV ONE (11:06)
[2024-05-22] MEDS: NAPH,MB-DB/K PH,MBDB POWDER PACKET GT ONE (15:04)
[2024-05-23 07:54] LABS: HEMATOCRIT 27.2 % (35.4-49); HEMOGLOBIN 8.3 GM/dL (11.7-16.9); MCH 29.5 pg (25.7-33.7); MCHC 30.5 g/dl (32.0-35.9); MEAN CELL VOLUME 96.9 fl (80-96); MEAN PLT VOLUME 9.7 fl (7.5-11.1); PLATELET COUNT 75 10^3/uL (134-434); RBC 2.81 M/mm3 (4.00-5.60); RDW 20.2 % (11.9-15.9); WHITE BLOOD COUNT 26.2 K/mm3 (4.0-10.0)
[2024-05-23 08:07] LABS: ALBUMIN 0.8 g/dl (3.4-5.0); BLOOD UREA NITROGEN 19.9 mg/dL (7-18); CALCIUM 8.4 mg/dL (8.5-10.1); MAGNESIUM 2.2 mg/dL (1.8-2.4)
[2024-05-23 08:09] LABS: CREATININE 0.2 mg/dL (0.55-1.3); PHOSPHOROUS 1.4 mg/dL (2.5-4.9)
[2024-05-23 08:12] LABS: BILIRUBIN,TOTAL 0.3 mg/dL (0.2-1); TOT PROT 3.5 g/dl (6.4-8.2)
[2024-05-23 08:39] LABS: ANISOCYTOSIS 2+; MACROCYTOSIS 0
[2024-05-23] MEDS ORDERED: ENOXAPARIN NA (PORCINE) 40 MG/0.4 ML DISP.SYRIN SQ SCH (10:00)
[2024-05-23] MEDS: ACETAMINOPHEN 1000 MG/100 ML BAG IVPB PRN (15:12)
[2024-05-23 17:59] LABS: EPI CELLS >36 /uL (0-25.1); HYALINE CASTS 8 /uL (0-3.1); URINE APPEARANCE CLOUDY; URINE BACTERIA 282 /uL (0-1359); URINE BILIRUBIN NEGATIVE (NEGATIVE); URINE COLOR YELLOW; URINE GLUCOSE (UA) NEGATIVE (NEGATIVE); URINE KETONE NEGATIVE (NEGATIVE); URINE LEUK ESTERASE 2+ (NEGATIVE); URINE NITRITE NEGATIVE (NEGATIVE); URINE PROTEIN 2+ (NEGATIVE); URINE UROBILINOGEN 0.2 mg/dL (0.2-1.0); URINE WBC 927 /uL (0-25.8)
[2024-05-23 19:22] LABS: URINE RBC 813.1 /uL (0-23.9); YEAST FEW (NEGATIVE)
[2024-05-24 08:52] LABS: HEMATOCRIT 26.4 % (35.4-49); HEMOGLOBIN 8.2 GM/dL (11.7-16.9); MCHC 31.2 g/dl (32.0-35.9); MEAN CELL VOLUME 96.3 fl (80-96); MEAN PLT VOLUME 9.2 fl (7.5-11.1); PLATELET COUNT 73 10^3/uL (134-434); RBC 2.75 M/mm3 (4.00-5.60); RDW 20.1 % (11.9-15.9); WHITE BLOOD COUNT 21.7 K/mm3 (4.0-10.0)
[2024-05-24] MEDS: ENOXAPARIN NA (PORCINE) 40 MG/0.4 ML DISP.SYRIN SQ SCH (09:06)
[2024-05-24 09:33] LABS: ANISOCYTOSIS 2+; MACROCYTOSIS 0
[2024-05-24 09:49] LABS: BILIRUBIN,TOTAL 0.4 mg/dL (0.2-1)
[2024-05-24 09:50] LABS: TOT PROT 3.7 g/dl (6.4-8.2)
[2024-05-24 10:54] LABS: ALBUMIN 0.8 g/dl (3.4-5.0)
[2024-05-24 10:55] LABS: CALCIUM 7.9 mg/dL (8.5-10.1)
[2024-05-24 10:56] LABS: BLOOD UREA NITROGEN 25.3 mg/dL (7-18); MAGNESIUM 2.2 mg/dL (1.8-2.4)
[2024-05-24 10:59] LABS: CREATININE 0.2 mg/dL (0.55-1.3); PHOSPHOROUS 1.4 mg/dL (2.5-4.9)
[2024-05-24] MEDS: METOCLOPRAMIDE HCL INJECTION 10 MG/2 ML VIAL IVPUSH SCH (11:14)
[2024-05-25 08:12] LABS: HEMATOCRIT 26.9 % (35.4-49); HEMOGLOBIN 8.4 GM/dL (11.7-16.9); MCH 30.2 pg (25.7-33.7); MCHC 31.3 g/dl (32.0-35.9); MEAN CELL VOLUME 96.6 fl (80-96); MEAN PLT VOLUME 9.3 fl (7.5-11.1); PLATELET COUNT 91 10^3/uL (134-434); RBC 2.78 M/mm3 (4.00-5.60); RDW 19.8 % (11.9-15.9)
[2024-05-25 08:18] LABS: POTASSIUM 3.8 mmol/L (3.5-5.1)
[2024-05-25 08:24] LABS: ALBUMIN 0.8 g/dl (3.4-5.0); BLOOD UREA NITROGEN 27.6 mg/dL (7-18); CALCIUM 7.9 mg/dL (8.5-10.1); MAGNESIUM 2.1 mg/dL (1.8-2.4)
[2024-05-25 08:27] LABS: BILIRUBIN,TOTAL 0.2 mg/dL (0.2-1); CREATININE 0.2 mg/dL (0.55-1.3)
[2024-05-25 08:28] LABS: PHOSPHOROUS 1.7 mg/dL (2.5-4.9); TOT PROT 3.8 g/dl (6.4-8.2)
[2024-05-25 09:07] LABS: ANISOCYTOSIS 1+; MACROCYTOSIS 0
[2024-05-25] MEDS: DEXTROSE 5%-WATER - 1,000 ML IV SCH (13:31)
[2024-05-25] MEDS: NAPH,MB-DB/K PH,MBDB POWDER PACKET GT SCH (13:31)
[2024-05-26 07:33] LABS: HEMOGLOBIN 8.1 GM/dL (11.7-16.9); MCH 29.6 pg (25.7-33.7); MCHC 31.2 g/dl (32.0-35.9); MEAN CELL VOLUME 94.9 fl (80-96); PLATELET COUNT 82 10^3/uL (134-434); RBC 2.74 M/mm3 (4.00-5.60); RDW 19.7 % (11.9-15.9); WHITE BLOOD COUNT 18.7 K/mm3 (4.0-10.0)
[2024-05-26 07:43] LABS: POTASSIUM 3.2 mmol/L (3.5-5.1)
[2024-05-26 07:51] LABS: CALCIUM 7.3 mg/dL (8.5-10.1)
[2024-05-26 07:52] LABS: ALBUMIN 0.8 g/dl (3.4-5.0); BLOOD UREA NITROGEN 24.2 mg/dL (7-18); MAGNESIUM 2.2 mg/dL (1.8-2.4)
[2024-05-26 07:55] LABS: CREATININE 0.2 mg/dL (0.55-1.3)
[2024-05-26 07:56] LABS: BILIRUBIN,TOTAL 0.2 mg/dL (0.2-1); TOT PROT 3.5 g/dl (6.4-8.2)
[2024-05-26 09:01] LABS: ANISOCYTOSIS 1+; MACROCYTOSIS 0
[2024-05-26] MEDS: KCL 10 MEQ IVPB 10 MEQ/100 ML INFUS.BAG IVPB SCH (10:00)
[2024-05-26] MEDS: POTASSIUM PHOSPHATE 30 MM in DEXTROSE 5%-WATER - 500 ML IVPB ONE ×2 (15:28)
[2024-05-26] MEDS: levETIRAcetam 500 MG/5 ML INJECTION VIAL IVPB SCH (21:16)
[2024-05-26] MEDS: Lacosamide 50 MG/5 ML ORAL SOLUTION UNIT CUPS GT SCH (21:16)
[2024-05-27 07:03] LABS: HEMATOCRIT 26.1 % (35.4-49); HEMOGLOBIN 8.2 GM/dL (11.7-16.9); MCH 30.1 pg (25.7-33.7); MCHC 31.6 g/dl (32.0-35.9); MEAN CELL VOLUME 95.1 fl (80-96); MEAN PLT VOLUME 8.5 fl (7.5-11.1); PLATELET COUNT 76 10^3/uL (134-434); RBC 2.74 M/mm3 (4.00-5.60); RDW 19.4 % (11.9-15.9)
[2024-05-27 07:16] LABS: CHLORIDE 114 mmol/L (98-107); SODIUM 146 mmol/L (136-145)
[2024-05-27 07:20] LABS: ALBUMIN 0.8 g/dl (3.4-5.0); CALCIUM 7.3 mg/dL (8.5-10.1)
[2024-05-27 07:21] LABS: ANION GAP 6 mmol/L (4-13); CO2 27 mmol/L (21-32); GLUCOSE,RANDOM 152 mg/dL (74-106); MAGNESIUM 1.9 mg/dL (1.8-2.4)
[2024-05-27 07:23] LABS: CREATININE < 0.2 mg/dL (0.55-1.3); PHOSPHOROUS 2.2 mg/dL (2.5-4.9); SGOT/AST 47 U/L (15-37); SGPT/ALT 22 U/L (13-61)
[2024-05-27 07:24] LABS: WHITE BLOOD COUNT 20.6 K/mm3 (4.0-10.0)
[2024-05-27 07:25] LABS: BILIRUBIN,TOTAL 0.1 mg/dL (0.2-1); TOT PROT 3.6 g/dl (6.4-8.2)
[2024-05-27 07:26] LABS: ALK PHOS 71 U/L (45-117)
[2024-05-27 08:55] LABS: ANISOCYTOSIS 2+; MACROCYTOSIS 0
[2024-05-28 08:39] LABS: HEMATOCRIT 29.1 % (35.4-49); HEMOGLOBIN 9.3 GM/dL (11.7-16.9); MCH 30.2 pg (25.7-33.7); MEAN CELL VOLUME 94.3 fl (80-96); MEAN PLT VOLUME 8.9 fl (7.5-11.1); PLATELET COUNT 60 10^3/uL (134-434); RBC 3.09 M/mm3 (4.00-5.60); RDW 19.6 % (11.9-15.9); WHITE BLOOD COUNT 20.5 K/mm3 (4.0-10.0)
[2024-05-28 08:52] LABS: CHLORIDE 112 mmol/L (98-107); POTASSIUM 3.2 mmol/L (3.5-5.1); SODIUM 145 mmol/L (136-145)
[2024-05-28 09:02] LABS: CALCIUM 7.5 mg/dL (8.5-10.1)
[2024-05-28 09:03] LABS: ALBUMIN 0.8 g/dl (3.4-5.0); ANION GAP 5 mmol/L (4-13); BLOOD UREA NITROGEN 17.1 mg/dL (7-18); CO2 28 mmol/L (21-32); GLUCOSE,RANDOM 117 mg/dL (74-106); MAGNESIUM 1.9 mg/dL (1.8-2.4)
[2024-05-28 09:06] LABS: PHOSPHOROUS 1.7 mg/dL (2.5-4.9); SGOT/AST 38 U/L (15-37); SGPT/ALT 20 U/L (13-61)
[2024-05-28 09:07] LABS: BILIRUBIN,TOTAL 0.2 mg/dL (0.2-1)
[2024-05-28 09:08] LABS: TOT PROT 3.7 g/dl (6.4-8.2)
[2024-05-28 09:09] LABS: ALK PHOS 73 U/L (45-117)
[2024-05-28 09:32] LABS: ANISOCYTOSIS 1+; MACROCYTOSIS 0
[2024-05-28] MEDS: NAPH,MB-DB/K PH,MBDB POWDER PACKET GT ONE (10:00)
[2024-05-28] MEDS: KCL 10 MEQ IVPB 10 MEQ/100 ML INFUS.BAG IVPB SCH (10:10)
[2024-05-28 11:02] LABS: CREATININE < 0.2 mg/dL (0.55-1.3)
[2024-05-28] MEDS: POTASSIUM PHOSPHATE 30 MM in DEXTROSE 5%-WATER - 250 ML IVPB ONE (12:00)
[2024-05-28] MEDS: FUROSEMIDE 40 MG/4 ML INJECTABLE VIAL IVPUSH SCH (13:54)
[2024-05-29] MEDS ORDERED: TRIPLE LUMEN FLUSH 4 ML ML IVPUSH PRN (02:17)
[2024-05-29 07:32] LABS: HEMATOCRIT 25.9 % (35.4-49); HEMOGLOBIN 8.5 GM/dL (11.7-16.9); MCHC 32.9 g/dl (32.0-35.9); MEAN CELL VOLUME 94.1 fl (80-96); MEAN PLT VOLUME 9.5 fl (7.5-11.1); PLATELET COUNT 54 10^3/uL (134-434); RBC 2.75 M/mm3 (4.00-5.60); RDW 19.2 % (11.9-15.9); WHITE BLOOD COUNT 16.4 K/mm3 (4.0-10.0)
[2024-05-29 07:56] LABS: CHLORIDE 112 mmol/L (98-107); POTASSIUM 3.6 mmol/L (3.5-5.1); SODIUM 147 mmol/L (136-145)
[2024-05-29 07:59] LABS: ALBUMIN 0.8 g/dl (3.4-5.0); ANION GAP 4 mmol/L (4-13); CALCIUM 7.2 mg/dL (8.5-10.1); CO2 30 mmol/L (21-32); GLUCOSE,RANDOM 111 mg/dL (74-106); MAGNESIUM 1.8 mg/dL (1.8-2.4)
[2024-05-29] MEDS: INSULIN ASPART SLIDING SCALE (NOVOLOG) 1 VIAL SQ SCH (08:01)
[2024-05-29 08:02] LABS: PHOSPHOROUS 2.2 mg/dL (2.5-4.9); SGOT/AST 27 U/L (15-37); SGPT/ALT 14 U/L (13-61)
[2024-05-29 08:04] LABS: BILIRUBIN,TOTAL 0.2 mg/dL (0.2-1); TOT PROT 3.4 g/dl (6.4-8.2)
[2024-05-29 08:05] LABS: ALK PHOS 71 U/L (45-117)
[2024-05-29 08:19] LABS: CREATININE < 0.2 mg/dL (0.55-1.3)
[2024-05-29] MEDS: CASPOFUNGIN ACETATE 50 MG in SODIUM CHLORIDE 250 ML IVPB SCH (09:24)
[2024-05-29] MEDS: CEFTAZIDIME/AVIBACTAM 2.5 GM in DEXTROSE 5%-WATER - 250 ML IVPB SCH (09:24)
[2024-05-29] MEDS: VALPROATE SODIUM IVPB SCH (09:25)
[2024-05-29] MEDS: SODIUM CHLORIDE IVPB SCH (09:25)
[2024-05-29] MEDS: ENOXAPARIN NA (PORCINE) 40 MG/0.4 ML DISP.SYRIN SQ SCH (09:26)
[2024-05-29] MEDS: PANTOPRAZOLE SODIUM 40 MG VIAL IVPUSH SCH (09:26)
[2024-05-29] MEDS: AMINO ACIDS/PROTEIN HYDROLYS 30 ML LIQUID.PKT PO SCH (09:26)
[2024-05-29] MEDS: ASCORBIC ACID 500 MG TABLET (FP) PO SCH (09:27)
[2024-05-29] MEDS: Lacosamide 50 MG/5 ML ORAL SOLUTION UNIT CUPS GT SCH (09:27)
[2024-05-29] MEDS: MINERAL OIL/PET HY-PHL TOPICAL OINTMENT 454 GM JAR TP SCH (09:27)
[2024-05-29] MEDS: levETIRAcetam 500 MG/5 ML INJECTION VIAL IVPB SCH (09:27)
[2024-05-29] MEDS: COLLAGENASE CLOSTRIDIUM HIST. 30 GRAMS TUBE TP SCH (09:28)
[2024-05-29 16:07] VITALS: BP 115/69; TEMP 97.8
[2024-05-29] MEDS: SCOPOLAMINE HYDROBROMIDE 1 PATCH PATCH.TD72 TD SCH (17:52)
[2024-05-29] MEDS: NAPH,MB-DB/K PH,MBDB POWDER PACKET PO ONE (17:56)
[2024-05-29] MEDS: POTASSIUM PHOSPHATE 15 MM in DEXTROSE 5%-WATER - 250 ML IVPB ONE (18:11)
[2024-05-29 21:14] VITALS: PULSE 65
[2024-05-29] MEDS: CHLORHEXIDINE GLUCONATE 4% CLEANSER FOR DECOLONIZATION TP SCH (21:27)
[2024-05-29 23:15] VITALS: RESP 17
== END 2024-05-29 23:49 | disposition short-term general hospital (02) | DRG 4 ==
LOC: JER 14:46 → JERBED 02-23 00:15 → J5S 02-23 02:31 → JICU 03-01 04:54 → J2W 03-06 15:06 → JICU 03-19 14:20 → J2W 03-26 15:29 → J6S 04-02 19:50 → J2W 04-02 20:14 → J6S 04-02 20:51 → JICU 04-05 15:57 → J2W 04-12 12:52 → JICU 05-13 23:15 → J2W 05-28 20:43
PROVIDERS: ADMIT Internal Medicine; ATTEND Internal Medicine
PROC: 05HM33Z Insertion of Infusion Device into Right Internal Jugular Vein, Percutaneous Approach (ICD-10-PCS; 2024-03-01)
PROC: B543ZZA Ultrasonography of Right Jugular Veins, Guidance (ICD-10-PCS; 2024-03-01)
PROC: 0DH63UZ Insertion of Feeding Device into Stomach, Percutaneous Approach (ICD-10-PCS; 2024-03-12)
PROC: BD12ZZZ Fluoroscopy of Stomach (ICD-10-PCS; 2024-03-12)
PROC: 05HM33Z Insertion of Infusion Device into Right Internal Jugular Vein, Percutaneous Approach (ICD-10-PCS; 2024-03-18)
PROC: B543ZZA Ultrasonography of Right Jugular Veins, Guidance (ICD-10-PCS; 2024-03-18)
PROC: 009U3ZX Drainage of Spinal Canal, Percutaneous Approach, Diagnostic (ICD-10-PCS; 2024-03-21)
PROC: 05HC33Z Insertion of Infusion Device into Left Basilic Vein, Percutaneous Approach (ICD-10-PCS; 2024-03-24)
PROC: 009U3ZX Drainage of Spinal Canal, Percutaneous Approach, Diagnostic (ICD-10-PCS; 2024-04-08)
PROC: 5A1955Z Respiratory Ventilation, Greater than 96 Consecutive Hours (ICD-10-PCS; 2024-05-13)
PROC: 0BH17EZ Insertion of Endotracheal Airway into Trachea, Via Natural or Artificial Opening (ICD-10-PCS; 2024-05-13)
PROC: 4A133B1 Monitoring of Arterial Pressure, Peripheral, Percutaneous Approach (ICD-10-PCS; 2024-05-14)
PROC: 4A133J1 Monitoring of Arterial Pulse, Peripheral, Percutaneous Approach (ICD-10-PCS; 2024-05-14)
PROC: 4A133B1 Monitoring of Arterial Pressure, Peripheral, Percutaneous Approach (ICD-10-PCS; 2024-05-15)
PROC: 4A133J1 Monitoring of Arterial Pulse, Peripheral, Percutaneous Approach (ICD-10-PCS; 2024-05-15)
PROC: 05HD33Z Insertion of Infusion Device into Right Cephalic Vein, Percutaneous Approach (ICD-10-PCS; 2024-05-15)
PROC: 0W9B30Z Drainage of Left Pleural Cavity with Drainage Device, Percutaneous Approach (ICD-10-PCS; 2024-05-17)
PROC: 05HN33Z Insertion of Infusion Device into Left Internal Jugular Vein, Percutaneous Approach (ICD-10-PCS; 2024-05-19)
PROC: B544ZZA Ultrasonography of Left Jugular Veins, Guidance (ICD-10-PCS; 2024-05-19)
PROC: 0B113F4 Bypass Trachea to Cutaneous with Tracheostomy Device, Percutaneous Approach (ICD-10-PCS; principal; 2024-05-22)
PROC: 0BJ08ZZ Inspection of Tracheobronchial Tree, Via Natural or Artificial Opening Endoscopic (ICD-10-PCS; 2024-05-22)
DX: A92.31 West Nile virus infection with encephalitis (principal); A41.9 Sepsis, unspecified organism; J69.0 Pneumonitis due to inhalation of food and vomit; J96.01 Acute respiratory failure with hypoxia; R65.21 Severe sepsis with septic shock; J96.02 Acute respiratory failure with hypercapnia; I50.33 Acute on chronic diastolic (congestive) heart failure; N17.9 Acute kidney failure, unspecified; E87.0 Hyperosmolality and hypernatremia; E87.29 Other acidosis; J44.1 Chronic obstructive pulmonary disease with (acute) exacerbation; E44.0 Moderate protein-calorie malnutrition; N39.0 Urinary tract infection, site not specified; J93.9 Pneumothorax, unspecified; G40.901 Epilepsy, unspecified, not intractable, with status epilepticus; R41.82 Altered mental status, unspecified; F32.9 Major depressive disorder, single episode, unspecified; G47.33 Obstructive sleep apnea (adult) (pediatric); E11.9 Type 2 diabetes mellitus without complications; I11.0 Hypertensive heart disease with heart failure; F29 Unspecified psychosis not due to a substance or known physiological condition; N40.1 Benign prostatic hyperplasia with lower urinary tract symptoms; F22 Delusional disorders; L89.150 Pressure ulcer of sacral region, unstageable; E87.6 Hypokalemia; E83.39 Other disorders of phosphorus metabolism; D69.6 Thrombocytopenia, unspecified; E66.9 Obesity, unspecified; Z68.32 Body mass index [BMI] 32.0-32.9, adult; E11.65 Type 2 diabetes mellitus with hyperglycemia; E78.5 Hyperlipidemia, unspecified
CPT/HCPCS: 0241U-QW; 31500; 36415; 36600; 49440; 62272; 70450-TC; 70551-TC; 70552-TC; 70553-TC; 71045-TC-FY; 71260-TC; 71275-TC; 74018-TC-FY; 74176-TC; 74178-TC; 76705-TC; 80048; 80053; 80076; 80164; 80177; 80307; 81003; 81015; 82140; 82308; 82550; 82553; 82607; 82803; 82945; 82962; 83036; 83605; 83735; 83825; 83880; 83930; 83935; 84075; 84100; 84132; 84146; 84157; 84300; 84443; 84450; 84460; 84484; 85025; 85027; 85610; 85651; 85730; 86140; 86376; 86694; 86704; 86706; 86707; 86709; 86735; 86765; 86780; 86787; 86788; 86789; 86803; 86850; 86900; 86901; 87040; 87070; 87075; 87077; 87081; 87086; 87184; 87186; 87205; 87324; 87340; 87350; 87389; 87449; 87476; 87517; 87529; 87635; 93005; 93010; 93306-TC; 94002; 94640; 94660; 95705; 95816; 97161-GP; 99291; G0480; J0131; J0637; J1459; J1568; J1644; J3490; Q9967